=== PATIENT | female | born 1950 | race Caucasian/White ===

== ENCOUNTER 2018-06-14 11:17 | Inpatient (IN) ==
[2018-06-14] MEDS ORDERED: *HR* Adenosine 6 MG/2 ML VIAL IVP ONE ×2 (11:31→11:42)
--- NOTE | 2018-06-14 11:43 | Emergency Department Note ---
Disposition Clinical Impression: SVT (supraventricular tachycardia), Renal insufficiency Disposition: Admitted As Inpatient Condition: Fair Forms: ED Satisfaction Letter General Adult HPI - General Chief complaint: ED Arrhythmia/Palpitations Stated complaint: pain clinic pt Time Seen by Provider: 06/14/18 11:37 Source: patient, other Limitations: no limitations - History of Present Illness Pain Scale: 8 - Related Data Home Medications Medication Instructions Recorded Confirmed ALPRAZolam [Xanax 0.5 MG Tablet] 0.5 mg PO Q6H PRN 07/22/17 06/10/18 Albuterol Sulfate [Ventolin Hfa] 2 puff IH Q4H PRN 07/22/17 06/10/18 Aspirin [Lo-Dose Aspirin EC] 81 mg PO DAILY 07/22/17 06/10/18 Budesonide/Formoterol 160/4.5 2 puff IH BID 07/22/17 06/10/18 [Symbicort 160/4.5] Gabapentin [Neurontin] 800 mg PO TID 07/22/17 06/10/18 Insulin Degludec [Tresiba 40 unit SQ QPM 07/22/17 06/10/18 Flextouch U-100] Levothyroxine Sodium [Synthroid] 150 mcg PO DAILY 07/22/17 06/10/18 Simvastatin [Zocor] 40 mg PO HS 07/22/17 06/10/18 Furosemide [Lasix] 40 mg PO DAILY 02/04/18 06/10/18 Ipratropium/Albuterol Neb [Duoneb] 3 ml IH Q6HR 04/05/18 06/10/18 Loratadine [Allergy Relief] 10 mg PO DAILY 04/05/18 06/10/18 Potassium Chloride [Klor-Con] 20 meq PO DAILY 04/05/18 06/10/18 Tiotropium [Spiriva] 18 mcg IH DAILY 04/05/18 06/10/18 Tizanidine HCl [Zanaflex] 4 mg PO TID PRN 04/05/18 06/10/18 Venlafaxine XR (24 HR) [Effexor XR] 150 mg PO DAILY 04/05/18 06/10/18 Allergies Allergy/AdvReac Type Severity Reaction Status Date / Time prednisone AdvReac See Verified 04/05/18 16:14 Comments Past Medical History - Past Medical History Medical history: Reports: non-contributory, arthritis, diabetes Surgical history: Reports: appendectomy, cholecystectomy, hysterectomy, other Psychiatric history: Reports: anxiety, bipolar G[employer]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 [employer] 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 history - Social History Smoking Status: Current every day smoker Smokeless Tobacco Status: No Alcohol use: Reports: none Drug use: Reports: none Physical Exam - General Limitations: no limitations General appearance: alert Course Vital Signs Temperature 97.7 F 06/14/18 11:18 Pulse Rate 150 06/14/18 11:18 Respiratory Rate 21 06/14/18 11:18 Blood Pressure 95/60 06/14/18 11:18 O2 Sat by Pulse Oximetry 96 06/14/18 11:18 Temperature 97.7 F 06/14/18 11:18 Pulse Rate 84 06/14/18 12:17 Respiratory Rate 18 06/14/18 12:17 Blood Pressure 119/38 06/14/18 12:17 O2 Sat by Pulse Oximetry 98 06/14/18 12:17 Oxygen Delivery Oxygen Delivery Room Air Medical Decision Making - Lab Data Result diagrams: 06/14/18 12:04 Lab Results 06/14/18 06/14/18 Range/Units 11:27 12:04 Sodium 140 (136-145) mEq/L Potassium 4.3 (3.5-5.1) mEq/L Chloride 105 (98-107) mEq/L Carbon Dioxide 29 (23-29) mEq/L BUN 48 H (8-23) mg/dL Creatinine 1.89 H (0.60-1.20) mg/dL Est GFR ( Amer) 32 L (> 60) Est GFR (Non-Af Amer) 26 L (> 60) BUN/Creatinine Ratio 25 (6-26) Glucose 62 L (70-105) mg/dL POC Glucose 76 (70-99) mg/dL Calculated Osmolality 301 H (280-300) Calcium 9.1 (8.6-10.3) mg/dL Magnesium 2.2 (1.6-2.6) mg/dL Attestation Statement - Attestation Attestation: I examined this patient and my medical decision-making was reviewed with the Resident Physician. I agree with the documented findings, disposition and t reatment plan as described except to the extent set forth below. SVT, converted with adenosine. Borderline blood pressure in the 90s, but asymptomatic. She has never had chest pain, shortness of breath, syncope, presyncope. She has had similar episodes in the past that converted with what, per her description, sounds like adenosine administration. We will check electrolytes, keep an eye on her, and discuss with cardiology.
--- NOTE | 2018-06-14 11:48 | Emergency Department Note ---
Disposition Clinical Impression: SVT (supraventricular tachycardia), Renal insufficiency Disposition: Admitted As Inpatient Condition: Fair Referrals: Uriel De Leon DO [Primary Care Provider] - Forms: ED Satisfaction Letter Arrhythmia/Palpitations HPI - General Chief Complaint: ED Arrhythmia/Palpitations Stated Complaint: pain clinic pt Time Seen by Provider: 06/14/18 11:37 Source: patient, other Limitations: no limitations Nursing Notes Reviewed: Yes Vital Signs Reviewed: Yes - History of Present Illness HPI Narrative: Patient is a 68-year-old female with past medical history including type 2 diabetes mellitus, hypertension, hypothyroidism, bursitis of the left hip presen ting from the pain clinic with chief complaint of arrhythmia. Patient has not taken her medications this morning and has not eaten anything in preparation for surgery in the pain clinic for her left hip bursitis and arthritis. While there she was complaining of lightheadedness and blurry vision that is constant. She denies chest pain, shortness of breath, abdominal pain, nausea, vomiting, weakn ess, loss of consciousness. Blood sugars were obtained and were 30. She received 25 g of D50 with blood sugar rising to 70. EKG was obtained and showed supraventricular tachycardia and her heart rate was noted to be in the 160s. She is brought over from pain clinic as a direct bed for further management. At present patient denies any pain but is still complaining of lightheadedness and a feeling of passing out. She also has a mild headache. She reports a remote history of having an irregular rhythm that required electrical cardioversion. She denies being on any blood thinners or medications for an irregular rhythm. - Related Data Home Medications Medication Instructions Recorded Confirmed ALPRAZolam [Xanax 0.5 MG Tablet] 0.5 mg PO Q6H PRN 07/22/17 06/10/18 Albuterol Sulfate [Ventolin Hfa] 2 puff IH Q4H PRN 07/22/17 06/10/18 Aspirin [Lo-Dose Aspirin EC] 81 mg PO DAILY 07/22/17 06/10/18 Budesonide/Formoterol 160/4.5 2 puff IH BID 07/22/17 06/10/18 [Symbicort 160/4.5] Gabapentin [Neurontin] 800 mg PO TID 07/22/17 06/10/18 Insulin Degludec [Tresiba 40 unit SQ QPM 07/22/17 06/10/18 Flextouch U-100] Levothyroxine Sodium [Synthroid] 150 mcg PO DAILY 07/22/17 06/10/18 Simvastatin [Zocor] 40 mg PO HS 07/22/17 06/10/18 Furosemide [Lasix] 40 mg PO DAILY 02/04/18 06/10/18 Ipratropium/Albuterol Neb [Duoneb] 3 ml IH Q6HR 04/05/18 06/10/18 Loratadine [Allergy Relief] 10 mg PO DAILY 04/05/18 06/10/18 Potassium Chloride [Klor-Con] 20 meq PO DAILY 04/05/18 06/10/18 Tiotropium [Spiriva] 18 mcg IH DAILY 04/05/18 06/10/18 Tizanidine HCl [Zanaflex] 4 mg PO TID PRN 04/05/18 06/10/18 Venlafaxine XR (24 HR) [Effexor XR] 150 mg PO DAILY 04/05/18 06/10/18 Allergies Allergy/AdvReac Type Severity Reaction Status Date / Time prednisone AdvReac See Verified 04/05/18 16:14 Comments All systems ED: reviewed and negative except as stated. Review of Systems: As Per HPI Constitutional: Denies: fever, chills Eyes: Reports: vision change. Denies: eye pain ENT ED: Denies: ear pain, throat pain Cardiovascular: Denies: chest pain, palpitations Respiratory: Denies: cough, dyspnea Gastrointestinal: Denies: abdominal pain, nausea Genitourinary: Denies: dysuria, frequency Musculoskeletal: Denies: back pain, neck pain Integumentary: Denies: rash, abrasion Neurological: Reports: headache, other (Lightheadedness) Hematological/Lymphatic: Denies: easy bleeding, easy bruising Past Medical History - Past Medical History Attestation: Yes The following information was validated with the patient. 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 Absent: tenderness - Respiratory Respiratory exam: Present: normal lung sounds bilaterally. Absent: respiratory distress, wheezes - Cardiovascular Cardiovascular exam: Present: normal rhythm, tachycardia, other (Bilateral radial pulses are equal). Absent: systolic murmur, diastolic murmur - Abdominal Exam Abdominal exam: Present: soft, Non-Tender. Absent: guarding - Extremities Exam Extremities exam: Present: other (Bilateral lower extremity edema with chronic venous stasis changes) - Neurological Exam Neurological exam: Present: alert, oriented X3, CN II-XII intact - Psychiatric Psychiatric exam: Present: normal affect, normal mood - Skin Skin exam: Present: warm, dry Course Vital Signs Temperature 97.7 F 06/14/18 11:18 Pulse Rate 150 06/14/18 11:18 Respiratory Rate 21 06/14/18 11:18 Blood Pressure 95/60 06/14/18 11:18 O2 Sat by Pulse Oximetry 96 06/14/18 11:18 Temperature 97.7 F 06/14/18 11:18 Pulse Rate 84 06/14/18 12:17 Respiratory Rate 18 06/14/18 12:17 Blood Pressure 119/38 06/14/18 12:17 O2 Sat by Pulse Oximetry 98 06/14/18 12:17 Oxygen Delivery Oxygen Delivery Room Air Arrhythmia/Palpitations - [facility] Narrative Medical decision making narrative: Patient presenting from the pain clinic with concern for an arrhythmia. Patient was supposed to have a left hip surgery. She has not eaten anything and has not had any of her medications this morning. Her blood sugar was 30. She received 25 g D50 at the pain clinic with her blood sugar rising to 70. Patient was complaining of lightheadedness and blurry vision and an EKG was obtained. EKG showed supraventricular tachycardia with heart rate in the 150s. Repeat was unchanged. She is brought here to the ED as a direct bed. On the monitor the patient's heart rate was 152-154 bpm. It appeared she was then supraventricular tachycardia versus atrial flutter with 2:1. Blood pressures were borderline with systolic in the 90s. Patient did not complain of any chest pain or palpitations, shortness of breath, or loss of consciousness. She still feels lightheaded. Gave 12mg of adenosine with a flush afterwards. Patient was successfully converted with heart rate now 93. Repeat EKG shows sinus rhythm with heart rate 93, left anterior fascicular block. No evidence of acute ST elevation or depression. This time patient states she is feeling slightly better. She feels hungry. We will allow her to eat continue to observe her. We will check BMP and mag. Once labs return we will contact the electrophysiology to discuss admitting the patient versus discharge and follow- up in the office. 13:15 Patient's electrolytes reviewed. Is elevated at 48 and creatinine 1.89, elevated from the past. She has an acute kidney injury. No electrolyte abnormalities. Receiving IV fluids. Blood pressure and heart rate has remained stable. We will admit for this episode of supraventricular tachycardia that converted with adenosine as well as acute knee injury. Hospitalist accepts admission. - Medical Records Medical records reviewed: Yes I reviewed the patient's medical records. - Lab Data Result diagrams: 06/14/18 12:04 Lab Results 06/14/18 06/14/18 Range/Units 11:27 12:04 Sodium 140 (136-145) mEq/L Potassium 4.3 (3.5-5.1) mEq/L Chloride 105 (98-107) mEq/L Carbon Dioxide 29 (23-29) mEq/L BUN 48 H (8-23) mg/dL Creatinine 1.89 H (0.60-1.20) mg/dL Est GFR ( Amer) 32 L (> 60) Est GFR (Non-Af Amer) 26 L (> 60) BUN/Creatinine Ratio 25 (6-26) Glucose 62 L (70-105) mg/dL POC Glucose 76 (70-99) mg/dL Calculated Osmolality 301 H (280-300) Calcium 9.1 (8.6-10.3) mg/dL Magnesium 2.2 (1.6-2.6) mg/dL - EKG Data EKG attestation: Yes I reviewed and interpreted this EKG. EKG results narrative: Awake EKG from today at 1137 after the cardioversion with adenosine shows sinus rhythm with heart rate 93, left anterior fascicular block. No acute ST elevation or depression noted to suggest an acute ischemia.
[2018-06-14] MEDS ORDERED: 0.9 % Sodium Chloride 500 ML IVC ONE (11:53)
[2018-06-14 12:49] LABS: Calcium 9.1 mg/dL (8.6-10.3); Magnesium 2.2 mg/dL (1.6-2.6); Potassium 4.3 mEq/L (3.5-5.1)
[2018-06-14] MEDS ORDERED: *HR* OxyCODONE/APAP 5/325 TABLET PO ONE (13:34)
--- NOTE | 2018-06-14 16:13 | Internal Med History&Physical ---
Date of Encounter: 06/14/18 Time of Encounter: 11:00 Internal Medicine - H&P: HPI Chief complaint: Tachycardia Admitted From: Direct Admit Plans for Post Hospital Care: Home History of present illness: Patient is a 68-year-old female with past medical history significant for chronic pain, diabetes, hypothyroid, COPD, obesity and hyperlipidemia who presents from the pain clinic on 06/14/18 due to hypoglycemia and tachycardia. Apparently patient was at pain clinic this morning for radiofrequency ablation of left hip femoral and obturator articular branches but was found to be hypoglycemic and tachycardic with a heart rate in the 150s. Patient was sent to the ER for further evaluation. During this time, patient denied any chest pain, palpitations shortness of breath or dizziness. In the ER, patient was found to have supraventricular tachycardia and was given adenosine 12 mg which resolved patients SVT. Patient was also found to be hypotensive and was given a bolus of IV fluids. Patient will be admitted to medical surgical floor for observation and monitoring. Past Med Surg Social Fam HX - Past Medical History Medical history: non-contributory, arthritis, diabetes Additional medical history: CHRONIC PAIN, OBESITY,POLYARTHRITIS Psychiatric history: anxiety, bipolar - Past Surgical History Surgical History: appendectomy, cholecystectomy, hysterectomy, other Additional surgical history: ORIF RT ARM - Social History Smoking Status: Current every day smoker Packs per day: 2 Smokeless Tobacco Status: No Alcohol use: rarely Drug use: marijuana - Family History Father Age at : 62 Cause of : lung cancer Hx Family Respiratory Disorders: Yes (lung cancer, smoker) Hx Family Cancer: Yes (lung cancer) Internal Medicine - H&P: Meds ALPRAZolam [Xanax 0.5 MG Tablet] 0.5 mg PO Q6H PRN 07/22/17 [History] Albuterol Sulfate [Ventolin Hfa] 2 puff IH Q4H PRN 07/22/17 [History] Aspirin [Lo-Dose Aspirin EC] 81 mg PO DAILY 07/22/17 [History] Budesonide/Formoterol 160/4.5 [Symbicort 160/4.5] 2 puff IH BID 07/22/17 [History] Gabapentin [Neurontin] 800 mg PO TID 07/22/17 [History] Insulin Degludec [Tresiba Flextouch U-100] 40 unit SQ QPM 07/22/17 [History] Levothyroxine Sodium [Synthroid] 150 mcg PO DAILY 07/22/17 [History] Simvastatin [Zocor] 40 mg PO HS 07/22/17 [History] Furosemide [Lasix] 40 mg PO DAILY 02/04/18 [History] Ipratropium/Albuterol Neb [Duoneb] 3 ml IH Q6HR 04/05/18 [History] Loratadine [Allergy Relief] 10 mg PO DAILY 04/05/18 [History] Potassium Chloride [Klor-Con] 20 meq PO DAILY 04/05/18 [History] Tiotropium [Spiriva] 18 mcg IH DAILY 04/05/18 [History] Tizanidine HCl [Zanaflex] 4 mg PO TID PRN 04/05/18 [History] Venlafaxine XR (24 HR) [Effexor XR] 150 mg PO DAILY 04/05/18 [History] Allergy/AdvReac Type Severity Reaction Status Date / Time prednisone AdvReac See Verified 04/05/18 16:14 Comments All Systems PM: A 10-system review of systems was performed and is negative for pertinent findings except as documented above in the HPI. - Constitutional Vitals: Temp Pulse Resp BP Pulse Ox 97.9 F 73 20 95/64 95 06/14/18 15:48 06/14/18 15:48 06/14/18 15:48 06/14/18 15:48 06/14/18 15:48 General appearance: Present: A&O X 3, no acute distress, obese Exam: As above - Head Head exam: Present: normocephalic - Eye Eye exam: Present: normal appearance - ENT ENT exam: Present: mucous membranes moist - Respiratory Respiratory exam: Present: CTAB. Absent: accessory muscle use, rales, rhonchi, wheezes - Cardiovascular Cardiovascular exam: Present: RRR, +S1, +S2. Absent: diastolic murmur, gallop, rubs, systolic murmur - GI/Abdominal GI/Abdominal exam: Present: normal bowel sounds, soft, no peritoneal signs. Absent: distended, tenderness - Extremities Exam Extremities exam: Absent: pedal edema - Neurological Exam Neurological exam: Present: alert, oriented X3. Absent: altered - Psychiatric Psychiatric exam: Present: normal mood - Skin Skin exam: Present: normal color Internal Med - H&P Results - Labs CBC & Chem 7: 06/14/18 12:04 Labs: BMP 06/14/18 12:04 Sodium 140 Potassium 4.3 Chloride 105 Carbon Dioxide 29 BUN 48 H Creatinine 1.89 H Glucose 62 L Calcium 9.1 - Assessment and plan (1) SVT (supraventricular tachycardia) Current Visit: Yes Status: Acute Assessment and plan: Patient with documented SVT on EKG viewed by myself with resolved after 12 mg of adenosine. Will check TSH and order echocardiogram; monitor on telemetry overnight. (2) Hypotension Current Visit: Yes Status: Acute Assessment and plan: Patient hypotensive in the ER and received 500 mL bolus Patient remains hypotensive on admission therefore initiate continuous IV fluids Qualifiers: Hypotension type: idiopathic hypotension Qualified Code(s): I95.0 - Idiopathic hypotension (3) Hypoglycemia associated with diabetes Current Visit: Yes Status: Acute Assessment and plan: Patient with reported blood glucose of 40 at the pain clinic office this morning. Patient reports however of having continue insulin while fasting Will monitor blood glucose overnight. (4) CKD (chronic kidney disease) stage 3, GFR 30-59 ml/min Current Visit: Yes Status: Acute Assessment and plan: Patient with stable CKD 3; she will for creatinine of 1.89 this morning and baseline appears to be 1.4 Will continue to monitor (5) Hypothyroid Current Visit: Yes Status: Acute Assessment and plan: Patient's last TSH was 0.074 and 2016 Will recheck TSH levels and continue home dose of levothyroxine for now. Qualifiers: Hypothyroidism type: unspecified Qualified Code(s): E03.9 - Hypothyroidism, unspecified (6) HLD (hyperlipidemia) Current Visit: Yes Status: Acute Assessment and plan: Continue home dose of statin Qualifiers: Hyperlipidemia type: unspecified Qualified Code(s): E78.5 - Hyperlipidemia, unspecified (7) COPD (chronic obstructive pulmonary disease) Current Visit: Yes Status: Acute Assessment and plan: Continue patient's home dose of Symbicort Qualifiers: Emphysema type: unspecified Qualified Code(s): J43.9 - Emphysema, unspecified (8) Obesity Current Visit: Yes Status: Acute Assessment and plan: Lifestyle modifications Qualifiers: Body mass index: unspecified BMI Qualified Code(s): E66.9 - Obesity, unspecified (9) Smoker Current Visit: Yes Status: Acute Assessment and plan: Nicotine replacement offered (10) DVT prophylaxis Current Visit: Yes Status: Acute Assessment and plan: Heparin subcutaneous - Time Spent With Patient Total time spent is greater than 50% in coordination of care (as documented) at patient's floor/unit and/or counseling patient:
[2018-06-14] MEDS ORDERED: Naloxone 0.4 MG/ML INJ IVP PRN (16:24)
[2018-06-14 17:14] LABS: Thyroid Stimulating Hormone 1.583 mcIU/mL (0.340-5.600)
[2018-06-14] MEDS: 0.9 % Sodium Chloride 1,000 ML IVC SCH (18:01)
[2018-06-14] MEDS: *HR* Heparin 5,000 UNIT/ML VIAL SQ SCH (18:01)
[2018-06-14] MEDS ORDERED: Ipratropium/Albuterol Neb 3 ML IH PRN (19:29)
[2018-06-14] MEDS ORDERED: ALPRAZolam 1 MG TABLET PO PRN (19:29)
[2018-06-14] MEDS: Gabapentin 400 MG CAPSULE PO SCH (20:44)
[2018-06-14] MEDS: Budesonide/Formoterol 160/4.5 1 PUFF INH IH SCH (21:52)
[2018-06-15 04:32] LABS: Basophils % 0.7 %; Eosinophils # 0.2 K/mcL (0.0-0.6); Eosinophils % 3.8 %; Hematocrit 32.8 % (35.3-44.9); Hemoglobin 10.6 g/dL (11.5-15.4); Immature Granulocytes % 0.2 % (0-4); Lymphocytes # 2.6 K/mcL (0.6-4.6); Lymphocytes % 42.6 %; Mean Corpuscular HGB Conc 32.3 g/dL (31.6-35.5); Mean Corpuscular Hemoglobin 32.2 pg (28.0-33.3); Mean Corpuscular Volume 99.7 fL (83.0-100.0); Mean Platelet Volume 10.1 fL (9.4-12.4); Monocytes # 0.4 K/mcL (0.0-1.3); Monocytes % 6.9 %; Neutrophils # 2.8 K/mcL (1.6-8.9); Platelet Count 162 K/mcL (140-400); Red Blood Count 3.29 M/mcL (3.82-4.97); Red Cell Distribution Width 13.7 % (11.5-14.5); Segmented Neutrophils % 45.8 %
[2018-06-15 04:50] LABS: Calcium 8.6 mg/dL (8.6-10.3); Potassium 4.5 mEq/L (3.5-5.1)
[2018-06-15] MEDS: *HR* Heparin 5,000 UNIT/ML VIAL SQ SCH (06:20)
[2018-06-15] MEDS ORDERED: Perflutren Lipid Microsphere 1.3 ML in 0.9 % Sodium Chloride 8.7 ML IVP ONE (08:20)
[2018-06-15] MEDS ORDERED: Famotidine 20 MG TABLET PO SCH (09:00)
[2018-06-15] MEDS ORDERED: *HR* Pioglitazone 30 MG TABLET PO SCH (09:00)
[2018-06-15] MEDS ORDERED: Loratadine 10 MG TABLET PO SCH (09:00)
[2018-06-15] MEDS ORDERED: Aspirin Enteric Coated 81 MG Tablet PO SCH (09:00)
[2018-06-15] MEDS ORDERED: Furosemide 40 MG TABLET PO SCH (09:00)
[2018-06-15] MEDS ORDERED: Nicotine 21 MG PATCH.TD24 TD SCH (09:00)
[2018-06-15] MEDS ORDERED: ARIPiprazole 10 MG TABLET PO SCH (09:00)
[2018-06-15] MEDS: Gabapentin 400 MG CAPSULE PO SCH (10:03)
[2018-06-15] MEDS: 0.9 % Sodium Chloride 1,000 ML IVC SCH (10:05)
[2018-06-15] MEDS: Budesonide/Formoterol 160/4.5 1 PUFF INH IH SCH (10:50)
[2018-06-15 11:05] VITALS: BP 134/81
[2018-06-15] MEDS ORDERED: INSULIN DEGLUDEC 60 UNIT SQ SCH (14:00)
[2018-06-15] MEDS ORDERED: Insulin DETEMIR 100 UNIT/ML X5UNITS SQ SCH (14:00)
--- NOTE | 2018-06-15 14:20 | Discharge Summary ---
- NOTES TO OUTPATIENT PROVIDER Notes to Outpatient Provider: Follow-up with primary care provider Date of Encounter: 06/15/18 Time of Encounter: 11:00 - Discharge Diagnosis (1) SVT (supraventricular tachycardia) Priority: Primary Status: Acute (2) Hypotension Priority: Secondary Status: Acute Qualifiers: Hypotension type: idiopathic hypotension Qualified Code(s): I95.0 - Idiopathic hypotension (3) Hypoglycemia associated with diabetes Priority: Secondary Status: Acute (4) CKD (chronic kidney disease) stage 3, GFR 30-59 ml/min Priority: Secondary Status: Acute (5) Hypothyroid Priority: Secondary Status: Acute Qualifiers: Hypothyroidism type: unspecified Qualified Code(s): E03.9 - Hypothyroidism, unspecified (6) HLD (hyperlipidemia) Priority: Secondary Status: Acute Qualifiers: Hyperlipidemia type: unspecified Qualified Code(s): E78.5 - Hyperlipidemia, unspecified (7) COPD (chronic obstructive pulmonary disease) Priority: Secondary Status: Acute Qualifiers: Emphysema type: unspecified Qualified Code(s): J43.9 - Emphysema, unspecified (8) Obesity Priority: Secondary Status: Acute Qualifiers: Body mass index: unspecified BMI Qualified Code(s): E66.9 - Obesity, unspecified (9) Smoker Priority: Secondary Status: Acute Hospital course: Patient is a 68-year-old female with past medical history significant for chron ic pain, diabetes, hypothyroid, COPD, obesity and hyperlipidemia who presents from the pain clinic on 06/14/18 due to hypoglycemia and tachycardia. Apparently patient was at pain clinic this morning for radiofrequency ablation of left hip femoral and obturator articular branches but was found to be hypoglycemic and tachycardic with a heart rate in the 150s. Patient was sent to the ER for further evaluation. During this time, patient denied any chest pain, palpitations shortness of breath or dizziness. In the ER, patient was found to have supraventricular tachycardia and was given adenosine 12 mg which resolved patients SVT. Patient was also found to be hypotensive and was given a bolus of IV fluids. Patient will be admitted to medical surgical floor for observation and monitoring. During patients hospital stay she was monitor on telemetry with no further episodes of SVT. Patient's blood pressure also within normal limits and her hypoglycemia resolved. Echocardiogram was done which showed LVEF of 70-75% with normal LV chamber size and function in addition to normal right ventricular structure and function; no significant valvular dysfunction or any evidence of pulmonary hypertension. Patient will be discharged to follow up with primary care as an outpatient. - Time Spent with Patient Total time spent providing and/or coordinating discharge services: - Discharge Medications Home Medications: Albuterol Sulfate [Ventolin Hfa] 2 puff IH Q4H PRN 07/22/17 [History] Aspirin [Lo-Dose Aspirin EC] 81 mg PO DAILY 07/22/17 [History] Budesonide/Formoterol 160/4.5 [Symbicort 160/4.5] 2 puff IH BID 07/22/17 [History] Gabapentin [Neurontin] 800 mg PO TID 07/22/17 [History] Insulin Degludec [Tresiba Flextouch U-100] 60 unit SQ 1400 07/22/17 [History] Levothyroxine Sodium [Synthroid] 137 mcg PO DAILY 07/22/17 [History] Simvastatin [Zocor] 40 mg PO HS 07/22/17 [History] Ipratropium/Albuterol Neb [Duoneb] 3 ml IH Q6HR PRN 04/05/18 [History] Loratadine [Allergy Relief] 10 mg PO DAILY 04/05/18 [History] Potassium Chloride [Klor-Con] 20 meq PO DAILY 04/05/18 [History] ALPRAZolam [Xanax 1 MG Tablet] 1 mg PO TID PRN 06/14/18 [History] ARIPiprazole [Abilify] 10 mg PO DAILY 06/14/18 [History] Famotidine [Pepcid] 40 mg PO DAILY 06/14/18 [History] Furosemide [Lasix] 80 mg PO DAILY 06/14/18 [History] Lisinopril [Zestril] 10 mg PO DAILY 06/14/18 [History] Pioglitazone HCl 30 mg PO DAILY 06/14/18 [History] Venlafaxine HCl [Venlafaxine HCl ER] 150 mg PO BID 06/14/18 [History] Allergies/Adverse Reactions: Allergy/AdvReac Type Severity Reaction Status Date / Time prednisone AdvReac See Verified 04/05/18 16:14 Comments Date of admission: 06/14/18 17:06 Primary care physician: Uriel De Leon DO Consults: 06/14/18 15:39 Consult to Corporate Physical Security Supervisor [CONS] Routine Reason for SW Consult: passport, o2 julee 2l, best choice HH rn, aides, Transportation - Constitutional Vitals: Temp Pulse Resp BP Pulse Ox 97.8 F 73 20 134/81 94 06/15/18 10:57 06/15/18 10:57 06/15/18 10:57 06/15/18 10:57 06/15/18 10:57 General appearance: Present: A&O X 3, no acute distress, obese Exam: Gen.: Nonacute distress, alert and oriented 3 Skin: Normal color - Patient Status Disposition: Home, Self-Care Condition: Fair - Discharge Instructions Instructions: Supraventricular Tachycardia (GEN), Cigarette Smoking and Your Health (GEN), Diabetic Hypoglycemia (GEN) Follow Up With: Liss Gonzalez CNP [Advanced Practice Nurse] - 06/27/18 1:15 pm
--- NOTE | 2018-06-16 18:33 | Electrocardiograph Report ---
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
--- NOTE | 2018-06-16 18:34 | Electrocardiograph Report ---
[facility] [facility] Test Date: 2018-06-14 Pat Name: Maritza Jaramillo Department: EXAM21 Room: 2A33 Gender: F [place] Operator: : [id number] Requested By: David Subramanian Order Number: [id number] Reading MD: Margot Hood Measurements Intervals [place] Rate: 93 P: 74 WV: 168 QRS: -47 QRSD: 101 T: 58 QT: 348 QTc: 433 Interpretive Statements Sinus rhythm Left anterior fascicular block Low voltage, precordial leads Consider anterior infarct Left axis deviation POOR R WAVE PROGRESSION Electronically Signed On 06-16-2018 18:33:31 EST by Margot Hood
== END 2018-06-15 15:38 | disposition home or self-care (01) | DRG 201 ==
LOC: EMEROOARM 11:17 → 2ANU 11:17 → SUATTDRO 17:06
PROVIDERS: ADMIT Student in an Organized Health Care Education/Training Program; ATTEND Hospitalist

== ENCOUNTER 2018-12-16 17:23 | Inpatient (IN) ==
[2018-12-16] MEDS ORDERED: *HR* HYDROmorphone (PF) 1 MG/ML SYRINGE IVP ONE ×2 (17:52→20:19)
[2018-12-16] MEDS ORDERED: 0.9 % Sodium Chloride 1,000 ML IVC ONE (17:52)
--- NOTE | 2018-12-16 17:55 | Emergency Department Note ---
Disposition Clinical Impression: Compression fracture, Lumbar compression fracture T12 compression fracture Qualifiers: Encounter type: initial encounter Qualified Code(s): S22.080A - Wedge compression fracture of T11-T12 vertebra, initial encounter for closed fracture Rib fracture Qualifiers: Encounter type: subsequent encounter Rib fracture type: multiple ribs Fracture type: closed Laterality: unspecified laterality Fracture healing: with routine healing Qualified Code(s): S22.49XD - Multiple fractures of ribs, unspecified side, subsequent encounter for fracture with routine healing Disposition: Admitted As Inpatient Condition: Good Referrals: Alex Steward MD [Non-Partnered Physician] - Forms: ED Satisfaction Letter Time of Disposition: 20:33 General Adult HPI - General Chief complaint: ED Fall Stated complaint: abdominal pain Time Seen by Provider: 12/16/18 17:24 Source: patient, EMS Limitations: no limitations Nursing Notes Reviewed: Yes Vital Signs Reviewed: Yes - History of Present Illness HPI Narrative: Female patient presenting to emergency department complaining of left hip pain abdominal pain and left shoulder pain after a fall that she sustained 3 days ago. She was attempting to get out of the wheelchair and fell forward. She is unaware if she struck her head but she does not believe that she passed out. Does have a history of aspirin use as well as dementia COPD thyroid issues and kidney problems. She is currently residing in a nursing facility for physical therapy. Patient is also diabetic. Pain Scale: 10 - Related Data Home Medications Medication Instructions Recorded Confirmed Albuterol Sulfate [Ventolin Hfa] 2 puff IH Q4H PRN 07/22/17 12/09/18 Levothyroxine Sodium [Synthroid] 137 mcg PO DAILY 07/22/17 12/09/18 Simvastatin [Zocor] 40 mg PO HS 07/22/17 12/09/18 Ipratropium/Albuterol Neb [Duoneb] 3 ml IH Q6HR PRN 04/05/18 12/09/18 Famotidine [Pepcid] 40 mg PO DAILY 06/14/18 12/09/18 Pioglitazone HCl 30 mg PO DAILY 06/14/18 12/09/18 Venlafaxine HCl [Venlafaxine HCl 150 mg PO DAILY 06/14/18 12/09/18 ER] Benztropine Mesylate 0.5 mg PO DAILY 09/24/18 12/09/18 Lidocaine [Lidoderm] 1 each TP DAILY 11/23/18 12/09/18 Melatonin 5 mg PO HS 11/23/18 12/09/18 Multivitamin with Minerals 1 each PO DAILY 11/23/18 12/09/18 [One-A-Day Maximum Formula] Insulin LISPRO [HumaLOG] 0 units SQ TIDWM 12/07/18 12/09/18 Acetaminophen [Tylenol] 1,000 mg PO TID PRN 12/09/18 12/09/18 Aripiprazole [Abilify] 15 mg PO DAILY 12/09/18 12/09/18 Glimepiride [Amaryl] 1 mg PO DAILY 12/09/18 12/09/18 MOM Conc [MILK OF MAGNESIA conc] 30 ml GTUBE DAILY 12/09/18 12/09/18 Methyl Salicylate/Menth/Camph 1 appl TP AD 12/09/18 12/09/18 [Bengay Ultra Strength Cream] Nicotine Patch [Nicoderm] 14 mg TP DAILY 12/09/18 12/09/18 Quetiapine Fumarate [Seroquel] 25 mg PO DAILY 12/09/18 12/09/18 Previous Rx's Medication Instructions Recorded ARIPiprazole [Abilify] 15 mg PO DAILY tablet 12/10/18 Gabapentin [Neurontin] 400 mg PO TID #12 capsule 12/10/18 Insulin Degludec [Tresiba 20 unit SQ DAILY 30 Days 12/10/18 Flextouch U-100] [email or web address] Allergies Allergy/AdvReac Type Severity Reaction Status Date / Time prednisone AdvReac See Verified 12/09/18 11:24 Comments All systems ED: reviewed and negative except as stated. Review of Systems: As Per HPI Constitutional: Denies: fever, chills Cardiovascular: Denies: chest pain, palpitations, syncope Respiratory: Denies: cough, dyspnea Gastrointestinal: Reports: abdominal pain. Denies: nausea, vomiting, diarrhea Genitourinary: Denies: urgency, dysuria, frequency Musculoskeletal: Reports: back pain, other (Left hip and left shoulder pain.). Denies: neck pain Integumentary: Denies: rash Neurological: Reports: weakness. Denies: headache Past Medical History - Past Medical History Attestation: Yes The following information was validated with the patient. Source: patient Medical history: Reports: arthritis, COPD, dementia, diabetes, GERD, hyperlipidemia, hypertension, renal disease, thyroid disease Surgical history: Reports: appendectomy, cholecystectomy, hysterectomy, other Psychiatric history: Reports: anxiety, bipolar, depression, PTSD TREE GIRDLER history: Reports: no TREE GIRDLER history - Social History Smoking Status: Former smoker Smokeless Tobacco Status: No Alcohol use: Reports: none Drug use: Reports: marijuana Physical Exam - General Limitations: no limitations General appearance: alert, in no apparent distress - Head Head exam: atraumatic, normocephalic, normal inspection - Eye Eye exam: Present: normal appearance, PERRL, EOMI - ENT ENT exam: normal exam, normal oropharynx, mucous membranes moist - Neck Neck exam: Present: normal inspection, full ROM, trachea midline - Chest Chest inspection: Present: normal inspection, symmetric chest wall rise - Respiratory Respiratory exam: Present: normal lung sounds bilaterally. Absent: respiratory distress, accessory muscle use - Cardiovascular Cardiovascular exam: Present: regular rate, normal rhythm, normal heart sounds - Abdominal Exam Abdominal exam: Present: soft, tenderness (And lower quadrants.), other (Large a jerzy of ecchymosis to the left lower anterior abdomen. Small area of ecchymosis to the right anterior abdomen). Absent: distention, guarding, rebound, rigidity, organomegaly - Extremities Exam Extremities exam: Present: normal inspection, full ROM, normal capillary refill, other (No gross deformity. No ecchymosis.). Absent: tenderness, pedal edema, calf tenderness - Back Exam Back exam: Present: normal inspection, other (Midline pain to palpation of her thorax and lumbar spine. No step-offs or deformities of cervical thorax or lumbar spine.) - Neurological Exam Neurological exam: Present: alert, oriented X3 - Psychiatric Psychiatric exam: Present: anxious - Skin Skin exam: Present: warm, dry, intact, normal color Course Course Narrative: On exam patient is lying back in bed with her eyes shut. She is moaning. Complaining of pain. Holding her left side. Patient does have some ecchymosis or left lower quadrant area. Also small area of ecchymosis to the anterior right lower abdomen that appears to be from her insulin shots. Patient still vinson s some ecchymosis to her left back as well. Patient states that she fell out of her wheelchair and struck her left side. Complaining of left shoulder pain. Was evaluated by orthopedics today with a negative x-ray of her left shoulder. Unaware if she should have her head whenever she fell but denies loss consciousness. Patient does have diffuse pain to palpation of her thoracic and lumbar spine. Also diffuse abdominal pain. No gross deformity of her extremities. She is mentating appropriately. Strong pulses in all 4 extremities. Patient denies any cervical pain at this time. We will get a head CT a cervical thoracic lumbar spine CT chest CT as well as an abdominal CT. She does have history of CAD so we will withhold IV contrast at this time. We will also get films of her left hip. - Reevaluation(s) Reevaluation #1: CT of patient's head without any acute abnormalities. Patient does have L1 and L2 compression fractures. Also a acute on chronic compression fracture of T12 with some moderate retropulsion. I did receive a call from radiology that there was also some facet widening and was considered an unstable fracture with concern for disruption of the PLC. Patient does not have any sensory disorders noted. She has movement of her feet bilaterally. Patient also with pedal pulses. However somewhat decreased on the right. Patient is mentating appropriately. We will admit patient to the hospital for further evaluation. Pauline de la cruz did place the MRI order. The patient should be on bedrest because she does have an unstable T12 fracture. Reevaluation #2: Nursing staff reevaluated sensation in the patient. She does have sensation throughout her lower extremities however she is reporting decreased on the right compared to the left. Time: 20:31 - Consultations Consultation #1: I spoke with Dr. Skaggs. We discussed the unstable T12 fracture. He is requesting a MRI of the patient's spine. We will place this at this time. He states he will see the patient in the morning. Time: 20:08 Consultation #2: Dr. Dunn accepted patient in stable condition. Time: 20:30 Vital Signs Temperature 98.4 F 12/16/18 17:28 Pulse Rate 89 12/16/18 17:28 Respiratory Rate 18 12/16/18 17:28 Blood Pressure 146/92 12/16/18 17:28 O2 Sat by Pulse Oximetry 98 12/16/18 17:28 Temperature 98.4 F 12/16/18 17:28 Pulse Rate 89 12/16/18 18:27 Respiratory Rate 16 12/16/18 18:27 Blood Pressure 129/64 12/16/18 18:27 O2 Sat by Pulse Oximetry 99 12/16/18 18:27 Oxygen Delivery Oxygen Delivery Room Air Medical Decision Making - Medical Records Medical records reviewed: Yes I reviewed the patient's medical records. - Lab Data Lab results reviewed: Yes I reviewed the patient's lab results. Result diagrams: 12/16/18 18:21 12/16/18 18:21 Lab Results 12/16/18 12/16/18 Range/Units 18:21 18:21 WBC 10.0 (4.3-11.1) K/mcL RBC 4.23 (3.82-4.97) M/mcL Hgb 12.9 (11.5-15.4) g/dL Hct 40.4 (35.3-44.9) % MCV 95.5 (83.0-100.0) fL MCH 30.5 (28.0-33.3) pg MCHC 31.9 (31.6-35.5) g/dL RDW 14.7 H (11.5-14.5) % Plt Count 274 (140-400) K/mcL MPV 9.9 (9.4-12.4) fL Immature Gran % 0.4 (0-4) % Seg Neutrophils % 78.2 % Lymphocytes % 14.9 % Monocytes % 5.8 % Eosinophils % 0.2 % Basophils % 0.5 % Neutrophils # 7.8 (1.6-8.9) K/mcL Lymphocytes # 1.5 (0.6-4.6) K/mcL Monocytes # 0.6 (0.0-1.3) K/mcL Eosinophils # 0.0 (0.0-0.6) K/mcL Basophils # 0.1 (0.0-0.2) K/mcL Sodium 140 (136-145) mEq/L Potassium 4.0 (3.5-5.1) mEq/L Chloride 101 (98-107) mEq/L Carbon Dioxide 28 (23-29) mEq/L BUN 28 H (8-23) mg/dL Creatinine 1.18 (0.60-1.20) mg/dL Est GFR ( Amer) 55 L (> 60) Est GFR (Non-Af Amer) 45 L (> 60) BUN/Creatinine Ratio 24 (6-26) Glucose 196 H (70-105) mg/dL Calculated Osmolality 301 H (280-300) Calcium 9.3 (8.6-10.3) mg/dL Total Bilirubin 0.6 (0.3-1.0) mg/dL AST 16 (13-39) Units/L ALT 11 (7-52) Units/L Alkaline Phosphatase 366 H (34-104) Units/L Serum Total Protein 7.0 (6.4-8.9) g/dL Albumin 3.7 (3.5-5.7) g/dL Globulin 3.3 (2.4-3.5) g/dL Albumin/Globulin Ratio 1.1 (1.1-2.2) - Radiology Data Radiology results reviewed: Yes I reviewed the patient's radiology results. Cervical Spine CT 12/16/18 17:52 IMPRESSION: Cervical spine CT: No acute fracture malalignment. Thoracic spine CT: Acute compression fracture at T12, with moderate dorsal retropulsion. There appears to be disruption of the posterior ligamentous complex, with widening of the facet joints at T12-L1. Subacute medial right rib fractures. Lumbar spine CT: Acute appearing compression fractures at L1 and L2, with mild dorsal retropulsion at L1 and no significant dorsal retropulsion at L. No involvement of the posterior elements is found. Possible mural thickening of the sigmoid colon and rectum. Correlate with any clinical evidence of proctitis/colitis. Findings were discussed with Soha Madison DO at 7:55 pm on 12/16/2018. D/ / Jeff Canela MD / Jeff Canela MD Interpreting Provider: Jeff Canela MD Head CT 12/16/18 17:52 IMPRESSION: No acute intracranial abnormality. D/ / Stef Painting MD / Stef Painting MD Interpreting Provider: Stef Painting MD Lumbar Spine CT 12/16/18 17:52 IMPRESSION: Cervical spine CT: No acute fracture malalignment. Thoracic spine CT: Acute compression fracture at T12, with moderate dorsal retropulsion. There appears to be disruption of the posterior ligamentous complex, with widening of the facet joints at T12-L1. Subacute medial right rib fractures. Lumbar spine CT: Acute appearing compression fractures at L1 and L2, with mild dorsal retropulsion at L1 and no significant dorsal retropulsion at L. No involvement of the posterior elements is found. Possible mural thickening of the sigmoid colon and rectum. Correlate with any clinical evidence of proctitis/colitis. Findings were discussed with Soha Madison DO at 7:55 pm on 12/16/2018. D/ / Jeff Canela MD / Jeff Canela MD Interpreting Provider: Jeff Canela MD Thoracic Spine CT 12/16/18 17:52 IMPRESSION: Cervical spine CT: No acute fracture malalignment. Thoracic spine CT: Acute compression fracture at T12, with moderate dorsal retropulsion. There appears to be disruption of the posterior ligamentous complex, with widening of the facet joints at T12-L1. Subacute medial right rib fractures. Lumbar spine CT: Acute appearing compression fractures at L1 and L2, with mild dorsal retropulsion at L1 and no significant dorsal retropulsion at L. No involvement of the posterior elements is found. Possible mural thickening of the sigmoid colon and rectum. Correlate with any clinical evidence of proctitis/colitis. Findings were discussed with Soha Madison DO at 7:55 pm on 12/16/2018. D/ / Jeff Canela MD / Jeff Canela MD Interpreting Provider: Jeff Canela MD Abdomen/Pelvis CT 12/16/18 17:53 IMPRESSION: Rectosigmoid fecal impaction. There is mild perirectal and pre sacral fat stranding. Stercoral colitis should be considered. There is partial lumbarization of S1. Using this numbering system and compared with 10/21/2018, there is a mild new compression fracture inferior endplate of T11, new marked compression with vertebral plana at T8 with smooth retropulsion of the superior endplate, moderate remote compression fracture of L1 and a new moderate compression fracture of L2. Mild bibasilar dependent parenchymal lung disease, likely atelectasis. D/ / Stef Painting MD / Stef Painting MD Interpreting Provider: Stef Painting MD Chest CT 12/16/18 17:53 IMPRESSION: 1. Cardiomegaly and trace bilateral pleural effusions may represent edema association with CHF. Bibasilar airspace opacities suspected to represent edema or atelectasis. 2. Granulomatous changes are also observed in the chest. 3. T12 compression fracture that is severe. Age is indeterminate, but this is new from a prior CT 10/21/2018. D/ / Amaury Olivas MD / Amaury Olivas MD Interpreting Provider: Amaury Olivas MD Hip X-Ray 12/16/18 17:54 IMPRESSION: 1. No definite acute findings in the left hip. 2. Bony demineralization partially limits evaluation fractures. Consider further evaluation with MRI or CT if there are clinical findings of fracture. 3. Mild degenerative changes of the sacroiliac joints and hips. D/ / David Wyman MD / David Wyman MD Interpreting Provider: David Wyman MD
[2018-12-16 18:48] LABS: Basophils # 0.1 K/mcL (0.0-0.2); Basophils % 0.5 %; Eosinophils % 0.2 %; Hematocrit 40.4 % (35.3-44.9); Immature Granulocytes % 0.4 % (0-4); Lymphocytes # 1.5 K/mcL (0.6-4.6); Lymphocytes % 14.9 %; Mean Corpuscular HGB Conc 31.9 g/dL (31.6-35.5); Mean Corpuscular Hemoglobin 30.5 pg (28.0-33.3); Mean Corpuscular Volume 95.5 fL (83.0-100.0); Mean Platelet Volume 9.9 fL (9.4-12.4); Monocytes # 0.6 K/mcL (0.0-1.3); Monocytes % 5.8 %; Neutrophils # 7.8 K/mcL (1.6-8.9); Platelet Count 274 K/mcL (140-400); Red Blood Count 4.23 M/mcL (3.82-4.97); Red Cell Distribution Width 14.7 % (11.5-14.5); Segmented Neutrophils % 78.2 %
[2018-12-16 18:49] LABS: Hemoglobin 12.9 g/dL (11.5-15.4)
[2018-12-16 19:07] LABS: Albumin 3.7 g/dL (3.5-5.7); Albumin/Globulin Ratio 1.1 (1.1-2.2); Bilirubin,Total 0.6 mg/dL (0.3-1.0); Calcium 9.3 mg/dL (8.6-10.3); Globulin 3.3 g/dL (2.4-3.5)
--- NOTE | 2018-12-16 20:30 | Emergency Department Note ---
Disposition Clinical Impression: Fracture lumbar vertebra-closed Qualifiers: Encounter type: initial encounter Lumbar vertebra fracture level: unspecified lumbar vertebra Fracture morphology: unspecified fracture morphology Qualified Code(s): S32.009A - Unspecified fracture of unspecified lumbar vertebra, initial encounter for closed fracture Disposition: Admitted As Inpatient Forms: ED Satisfaction Letter Time of Disposition: 20:30 General Adult HPI - General Chief complaint: ED Fall Stated complaint: abdominal pain Time Seen by Provider: 12/16/18 17:24 Source: patient, EMS Limitations: no limitations - History of Present Illness Pain Scale: 10 - Related Data Home Medications Medication Instructions Recorded Confirmed Albuterol Sulfate [Ventolin Hfa] 2 puff IH Q4H PRN 07/22/17 12/09/18 Levothyroxine Sodium [Synthroid] 137 mcg PO DAILY 07/22/17 12/09/18 Simvastatin [Zocor] 40 mg PO HS 07/22/17 12/09/18 Ipratropium/Albuterol Neb [Duoneb] 3 ml IH Q6HR PRN 04/05/18 12/09/18 Famotidine [Pepcid] 40 mg PO DAILY 06/14/18 12/09/18 Pioglitazone HCl 30 mg PO DAILY 06/14/18 12/09/18 Venlafaxine HCl [Venlafaxine HCl 150 mg PO DAILY 06/14/18 12/09/18 ER] Benztropine Mesylate 0.5 mg PO DAILY 09/24/18 12/09/18 Lidocaine [Lidoderm] 1 each TP DAILY 11/23/18 12/09/18 Melatonin 5 mg PO HS 11/23/18 12/09/18 Multivitamin with Minerals 1 each PO DAILY 11/23/18 12/09/18 [One-A-Day Maximum Formula] Insulin LISPRO [HumaLOG] 0 units SQ TIDWM 12/07/18 12/09/18 Acetaminophen [Tylenol] 1,000 mg PO TID PRN 12/09/18 12/09/18 Aripiprazole [Abilify] 15 mg PO DAILY 12/09/18 12/09/18 Glimepiride [Amaryl] 1 mg PO DAILY 12/09/18 12/09/18 MOM Conc [MILK OF MAGNESIA conc] 30 ml GTUBE DAILY 12/09/18 12/09/18 Methyl Salicylate/Menth/Camph 1 appl TP AD 12/09/18 12/09/18 [Bengay Ultra Strength Cream] Nicotine Patch [Nicoderm] 14 mg TP DAILY 12/09/18 12/09/18 Quetiapine Fumarate [Seroquel] 25 mg PO DAILY 12/09/18 12/09/18 Previous Rx's Medication Instructions Recorded ARIPiprazole [Abilify] 15 mg PO DAILY tablet 12/10/18 Gabapentin [Neurontin] 400 mg PO TID #12 capsule 12/10/18 Insulin Degludec [Tresiba 20 unit SQ DAILY 30 Days 12/10/18 Flextouch U-100] insuln.pen Allergies Allergy/AdvReac Type Severity Reaction Status Date / Time prednisone AdvReac See Verified 12/09/18 11:24 Comments Constitutional: Denies: fever, chills Cardiovascular: Denies: chest pain, palpitations, syncope Respiratory: Denies: cough, dyspnea Gastrointestinal: Reports: abdominal pain. Denies: nausea, vomiting, diarrhea Genitourinary: Denies: urgency, dysuria, frequency Musculoskeletal: Reports: back pain, other (Left hip and left shoulder pain.). Denies: neck pain Integumentary: Denies: rash Neurological: Reports: weakness. 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: Reports: no SENIOR UNDERWRITING ASSISTANT history - Social History Smoking Status: Former smoker Smokeless Tobacco Status: No Alcohol use: Reports: none Drug use: Reports: marijuana Physical Exam - General Limitations: no limitations General appearance: alert, in no apparent distress Course Vital Signs Temperature 98.4 F 12/16/18 17:28 Pulse Rate 89 12/16/18 17:28 Respiratory Rate 18 12/16/18 17:28 Blood Pressure 146/92 12/16/18 17:28 O2 Sat by Pulse Oximetry 98 12/16/18 17:28 Temperature 98.4 F 12/16/18 17:28 Pulse Rate 89 12/16/18 18:27 Respiratory Rate 16 12/16/18 18:27 Blood Pressure 129/64 12/16/18 18:27 O2 Sat by Pulse Oximetry 99 12/16/18 18:27 Oxygen Delivery Oxygen Delivery Room Air Medical Decision Making - Lab Data Result diagrams: 12/16/18 18:21 12/16/18 18:21 Lab Results 12/16/18 12/16/18 Range/Units 18:21 18:21 WBC 10.0 (4.3-11.1) K/mcL RBC 4.23 (3.82-4.97) M/mcL Hgb 12.9 (11.5-15.4) g/dL Hct 40.4 (35.3-44.9) % MCV 95.5 (83.0-100.0) fL MCH 30.5 (28.0-33.3) pg MCHC 31.9 (31.6-35.5) g/dL RDW 14.7 H (11.5-14.5) % Plt Count 274 (140-400) K/mcL MPV 9.9 (9.4-12.4) fL Immature Gran % 0.4 (0-4) % Seg Neutrophils % 78.2 % Lymphocytes % 14.9 % Monocytes % 5.8 % Eosinophils % 0.2 % Basophils % 0.5 % Neutrophils # 7.8 (1.6-8.9) K/mcL Lymphocytes # 1.5 (0.6-4.6) K/mcL Monocytes # 0.6 (0.0-1.3) K/mcL Eosinophils # 0.0 (0.0-0.6) K/mcL Basophils # 0.1 (0.0-0.2) K/mcL Sodium 140 (136-145) mEq/L Potassium 4.0 (3.5-5.1) mEq/L Chloride 101 (98-107) mEq/L Carbon Dioxide 28 (23-29) mEq/L BUN 28 H (8-23) mg/dL Creatinine 1.18 (0.60-1.20) mg/dL Est GFR ( Amer) 55 L (> 60) Est GFR (Non-Af Amer) 45 L (> 60) BUN/Creatinine Ratio 24 (6-26) Glucose 196 H (70-105) mg/dL Calculated Osmolality 301 H (280-300) Calcium 9.3 (8.6-10.3) mg/dL Total Bilirubin 0.6 (0.3-1.0) mg/dL AST 16 (13-39) Units/L ALT 11 (7-52) Units/L Alkaline Phosphatase 366 H (34-104) Units/L Serum Total Protein 7.0 (6.4-8.9) g/dL Albumin 3.7 (3.5-5.7) g/dL Globulin 3.3 (2.4-3.5) g/dL Albumin/Globulin Ratio 1.1 (1.1-2.2) Attestation Statement - Attestation Attestation: I reviewed the residents documentation and agree with the residents assessment and plan of care. I have personally had face to face time with the patient. (Brief History, Brief Exam, and MDM) I personally supervised and was present for the lobo/critical portions of the following procedures completed by the resident: (add procedures performed here). 68 year old female presents to the ED with complaints of fall from two days ago and states that she is havng increased back pain. Edmund has a unstable lumbar fracture cocnering for hte posterior ligament and multiple other new compression fractures. We have consulted with Dr. Skaggs and he will see edmund in consult. Admit to medicine
[2018-12-16] MEDS ORDERED: Naloxone 0.4 MG/ML INJ IVP PRN (21:15)
[2018-12-16] MEDS ORDERED: *HR* HYDROcodone/Acet 5/325 mg TABLET PO PRN (21:15)
[2018-12-16] MEDS ORDERED: Acetaminophen 325 MG TABLET PO PRN (21:15)
[2018-12-16] MEDS ORDERED: *HR* Dextrose 50 % in Water (Syg) 50 ML SYRINGE IVP PRN (21:15)
[2018-12-16] MEDS ORDERED: Dextrose Gel 15 GM/37.5 ML TUBE PO PRN ×2 (21:15)
[2018-12-16] MEDS ORDERED: Ipratropium/Albuterol Neb 3 ML IH PRN (21:45)
--- NOTE | 2018-12-16 23:05 | Internal Med History&Physical ---
Date of Encounter: 12/16/18 Time of Encounter: 23:04 Internal Medicine - H&P: HPI Chief complaint: back pain Admitted From: Home Plans for Post Hospital Care: Home History of present illness: Maritza Jaramillo is a 68 year old morbidly woman with multiple comorbidities as listed below who was discharged from here 5 days ago after being managed for acute metabolic encephalopathy and sepsis due to UTI. She is brought in again to the ER with the complaint of left hip, lower abdominal and left should pain after a fall she suffered 3 days ago while trying to get up from her wheelchair. She was found to be in pain diffusely in the ER and had multiple ecchymotic areas. [place] scans were done and found to have some new spinal compression fractures at different thoracolumbar levels with the T12 level showing retropulsion and facet widening. Neurosurgery was consulted and the patient will have evaluated. In the interim we will manage her pain and ensure she remains neurologically stable. Vitals: Reviewed General: Obese white woman lying in bed in NAD Skin: Warm and dry HEENT: Dry mucous membranes. No conjunctivae pallor. Neck: No lymphadenopathy. No JVD. No carotid bruits. No palpable thyroid. Chest: Normal thoracic expansion. Normal breath sounds. Clear to auscultation. Heart: Normal S1 & S2; rhythmic. No rubs or murmurs. Abdomen: Non-distended, soft and non-tender to palpation. No peritoneal reaction. Extremities: No clubbing, cyanosis or edema. No calf tenderness. Normal distal p ulses. Neurological: Awake, alert and oriented to person, place and time. No focal deficits. Point tenderness on spinous processes of thoracolumbar spine. Psych: Affect appropriate. Assessment/Plan 1. Spinal compression fractures: Multiple and seemingly unstable. Unclear if related to traumatic fall or if pathologic in nature. Will get MRI for better evaluation. She remains neurovascularly intact on physical exam. Will provide analgesics as needed, strict bedrest ordered and spine surgery consult requested. 2. Diabetes: Will place on basal and sliding scale insulin. 3. Mood disorder: Will resume anxiolytics. 4. DVT prophylaxis: SubQ heparin ordered. Past Med Surg Social Fam HX - Past Medical History Medical history: arthritis, COPD, dementia, diabetes, GERD, hyperlipidemia, hypertension, renal disease, thyroid disease Additional medical history: kidney failure. urinary retention Psychiatric history: anxiety, bipolar, depression, PTSD - Past Surgical History Surgical History: appendectomy, cholecystectomy, hysterectomy, other Additional surgical history: ORIF RT ARM - Social History Smoking Status: Former smoker Smokeless Tobacco Status: No Alcohol use: none Drug use: marijuana - Family History Father Hx Family Respiratory Disorders: Yes (lung cancer, smoker) Hx Family Cancer: Yes (lung cancer) Internal Medicine - H&P: Meds Albuterol Sulfate [Ventolin Hfa] 2 puff IH Q4H PRN 07/22/17 [History] Levothyroxine Sodium [Synthroid] 137 mcg PO DAILY 07/22/17 [History] Simvastatin [Zocor] 40 mg PO HS 07/22/17 [History] Ipratropium/Albuterol Neb [Duoneb] 3 ml IH Q6HR PRN 04/05/18 [History] Famotidine [Pepcid] 40 mg PO DAILY 06/14/18 [History] Pioglitazone HCl 30 mg PO DAILY 06/14/18 [History] Venlafaxine HCl [Venlafaxine HCl ER] 150 mg PO DAILY 06/14/18 [History] Benztropine Mesylate 0.5 mg PO DAILY 09/24/18 [History] Lidocaine [Lidoderm] 1 patch TP DAILY 11/23/18 [History] Melatonin 5 mg PO HS 11/23/18 [History] Multivitamin with Minerals [One-A-Day Maximum Formula] 1 tab PO DAILY 11/23/18 [History] Insulin LISPRO [HumaLOG] 0 units SQ TIDWM 12/07/18 [History] Acetaminophen [Tylenol] 1,000 mg PO TID PRN 12/09/18 [History] Aripiprazole [Abilify] 15 mg PO DAILY 12/09/18 [History] Glimepiride [Amaryl] 1 mg PO DAILY 12/09/18 [History] MOM Conc [MILK OF MAGNESIA conc] 30 ml GTUBE DAILY 12/09/18 [History] Methyl Salicylate/Menth/Camph [Bengay Ultra Strength Cream] 1 appl TP AD [History] Nicotine Patch [Nicoderm] 14 mg TP DAILY 12/09/18 [History] Quetiapine Fumarate [Seroquel] 25 mg PO DAILY 12/09/18 [History] Gabapentin [Neurontin] 400 mg PO TID #12 capsule 12/10/18 [Rx] Insulin Degludec [Tresiba Flextouch U-100] 20 unit SQ DAILY 30 Days insuln.pen 12/10/18 [Rx] Ertapenem [INVanz] 1,000 mg IVPB DAILY 12/16/18 [History] Tramadol HCl [Ultram] 50 mg PO Q4H PRN 12/16/18 [History] Allergy/AdvReac Type Severity Reaction Status Date / Time prednisone AdvReac See Verified 12/09/18 11:24 Comments All Systems PM: A 10-system review of systems was performed and is negative for pertinent findings except as documented above in the HPI. - Constitutional Vitals: Temp Pulse Resp BP Pulse Ox 98.4 F 83 16 115/63 92 12/16/18 17:28 12/16/18 21:59 12/16/18 21:59 12/16/18 21:59 12/16/18 21:59 Exam: . Internal Med - H&P Results - Labs CBC & Chem 7: 12/16/18 18:21 12/16/18 18:21 Labs: Short CBC 12/16/18 Range/Units 18:21 WBC 10.0 (4.3-11.1) K/mcL Hgb 12.9 (11.5-15.4) g/dL Hct 40.4 (35.3-44.9) % Plt Count 274 (140-400) K/mcL Neutrophils # 7.8 (1.6-8.9) K/mcL BMP 12/16/18 18:21 Sodium 140 Potassium 4.0 Chloride 101 Carbon Dioxide 28 BUN 28 H Creatinine 1.18 Glucose 196 H Calcium 9.3 Liver Function 12/16/18 Range/Units 18:21 Total Bilirubin 0.6 (0.3-1.0) mg/dL AST 16 (13-39) Units/L ALT 11 (7-52) Units/L Alkaline Phosphatase 366 H (34-104) Units/L Albumin 3.7 (3.5-5.7) g/dL - Impressions ITS Impressions Cervical Spine CT 12/16/18 17:52 IMPRESSION: Cervical spine CT: No acute fracture malalignment. Thoracic spine CT: Acute compression fracture at T12, with moderate dorsal retropulsion. There appears to be disruption of the posterior ligamentous complex, with widening of the facet joints at T12-L1. Subacute medial right rib fractures. Lumbar spine CT: Acute appearing compression fractures at L1 and L2, with mild dorsal retropulsion at L1 and no significant dorsal retropulsion at L. No involvement of the posterior elements is found. Possible mural thickening of the sigmoid colon and rectum. Correlate with any clinical evidence of proctitis/colitis. Findings were discussed with Soha Madison DO at 7:55 pm on 12/16/2018. D/ / Jeff Canela MD / Jeff Canela MD Interpreting Provider: Jeff Canela MD Head CT 12/16/18 17:52 IMPRESSION: No acute intracranial abnormality. D/ / Stef Painting MD / Stef Painting MD Interpreting Provider: Stef Painting MD Lumbar Spine CT 12/16/18 17:52 IMPRESSION: Cervical spine CT: No acute fracture malalignment. Thoracic spine CT: Acute compression fracture at T12, with moderate dorsal retropulsion. There appears to be disruption of the posterior ligamentous complex, with widening of the facet joints at T12-L1. Subacute medial right rib fractures. Lumbar spine CT: Acute appearing compression fractures at L1 and L2, with mild dorsal retropulsion at L1 and no significant dorsal retropulsion at L. No involvement of the posterior elements is found. Possible mural thickening of the sigmoid colon and rectum. Correlate with any clinical evidence of proctitis/colitis. Findings were discussed with Soha Madison DO at 7:55 pm on 12/16/2018. D/ / Jeff Canela MD / Jeff Canela MD Interpreting Provider: Jeff Canela MD Thoracic Spine CT 12/16/18 17:52 IMPRESSION: Cervical spine CT: No acute fracture malalignment. Thoracic spine CT: Acute compression fracture at T12, with moderate dorsal retropulsion. There appears to be disruption of the posterior ligamentous complex, with widening of the facet joints at T12-L1. Subacute medial right rib fractures. Lumbar spine CT: Acute appearing compression fractures at L1 and L2, with mild dorsal retropulsion at L1 and no significant dorsal retropulsion at L. No involvement of the posterior elements is found. Possible mural thickening of the sigmoid colon and rectum. Correlate with any clinical evidence of proctitis/colitis. Findings were discussed with Soha Madison DO at 7:55 pm on 12/16/2018. D/ / Jeff Canela MD / Jeff Canela MD Interpreting Provider: Jeff Canela MD Abdomen/Pelvis CT 12/16/18 17:53 IMPRESSION: Rectosigmoid fecal impaction. There is mild perirectal and pre sacral fat stranding. Stercoral colitis should be considered. There is partial lumbarization of S1. Using this numbering system and compared with 10/21/2018, there is a mild new compression fracture inferior endplate of T11, new marked compression with vertebral plana at T8 with smooth retropulsion of the superior endplate, moderate remote compression fracture of L1 and a new moderate compression fracture of L2. Mild bibasilar dependent parenchymal lung disease, likely atelectasis. D/ / Stef Painting MD / Stef Painting MD Interpreting Provider: Stef Painting MD Chest CT 12/16/18 17:53 IMPRESSION: 1. Cardiomegaly and trace bilateral pleural effusions may represent edema association with CHF. Bibasilar airspace opacities suspected to represent edema or atelectasis. 2. Granulomatous changes are also observed in the chest. 3. T12 compression fracture that is severe. Age is indeterminate, but this is new from a prior CT 10/21/2018. D/ / Amaury Olivas MD / Amaury Olivas MD Interpreting Provider: Amaury Olivas MD Hip X-Ray 12/16/18 17:54 IMPRESSION: 1. No definite acute findings in the left hip. 2. Bony demineralization partially limits evaluation fractures. Consider further evaluation with MRI or CT if there are clinical findings of fracture. 3. Mild degenerative changes of the sacroiliac joints and hips. D/ / David Wyman MD / David Wyman MD Interpreting Provider: David Wyman MD Lumbar Spine MRI 12/16/18 20:20 IMPRESSION: Abnormal signal involving L2-T12 and T11 suggestive of acute to subacute compression fractures. Foci of low signal intensity involving the vertebral body at T12 corresponds to the gas on the CT. Please note that similar findings can be seen with emphysematous osteomyelitis. If there is concern for osteomyelitis/discitis, postcontrast imaging could be beneficial. Abnormal signal within the posterior elements T11-T12 and T12-L1 suggestive of posterior ligament complex injury. Otherwise mild multilevel degenerate spondylosis involving the thoracic and lumbar spine. Moderate severe degenerate facet arthropathy lower lumbar spine. D/ / Justo Brown / Justo Brown Interpreting Provider: Justo Brown Thoracic Spine MRI 12/16/18 20:20 IMPRESSION: Abnormal signal involving L2-T12 and T11 suggestive of acute to subacute compression fractures. Foci of low signal intensity involving the vertebral body at T12 corresponds to the gas on the CT. Please note that similar findings can be seen with emphysematous osteomyelitis. If there is concern for osteomyelitis/discitis, postcontrast imaging could be beneficial. Abnormal signal within the posterior elements T11-T12 and T12-L1 suggestive of posterior ligament complex injury. Otherwise mild multilevel degenerate spondylosis involving the thoracic and lumbar spine. Moderate severe degenerate facet arthropathy lower lumbar spine. D/ / Justo Brown / Justo Brown Interpreting Provider: Justo Brown - Time Spent With Patient Total time spent is greater than 50% in coordination of care (as documented) at patient's floor/unit and/or counseling patient: Greater than 35 minutes
[2018-12-17] MEDS: Melatonin 3 MG TABLET PO SCH ×2 (01:31→19:49)
[2018-12-17] MEDS: *HR* Heparin 5,000 UNIT/ML VIAL SQ SCH ×4 (01:31→23:08)
[2018-12-17] MEDS: traMADol 50 MG TABLET PO PRN ×2 (05:47→16:06)
[2018-12-17] MEDS ORDERED: Methyl Salicylate/Menthol 28 GM TUBE TP PRN (09:00)
[2018-12-17] MEDS: Nicotine 14 MG PATCH.TD24 TD SCH (09:41)
[2018-12-17] MEDS: Insulin LISPRO 300 UNITS/3 ML VIAL SQ SCH ×3 (09:42→17:11)
[2018-12-17] MEDS: Venlafaxine XR (24 HR) 150 MG CAP.ER.24H PO SCH (09:43)
[2018-12-17] MEDS: Gabapentin 400 MG CAPSULE PO SCH ×3 (09:43→19:50)
[2018-12-17] MEDS: Insulin DETEMIR 100 UNIT/ML X5UNITS SQ SCH (09:43)
[2018-12-17] MEDS: Multivit/Ca/Min/Fe/FA 1 TAB TABLET PO SCH (09:44)
[2018-12-17] MEDS: Famotidine 20 MG TABLET PO SCH (09:44)
[2018-12-17] MEDS: ARIPiprazole 10 MG TABLET PO SCH (09:44)
[2018-12-17] MEDS: MOM Conc 10 ML UD.LIQ PO SCH (10:00)
[2018-12-17] MEDS: Sennosides/Docusate Sodium TABLET PO SCH ×2 (10:00→19:50)
--- NOTE | 2018-12-17 10:03 | Spine Progress Note ---
Date of Encounter: 12/17/18 Time of Encounter: 09:58 - Assessment and Plan (1) Burst fracture of T12 vertebra Current Visit: Yes Status: Acute On exam she is in obvious distress secondary to back pain. She rates the pain a 9 on a pain scale. Afebrile vital signs stable. She is grossly neurovascularly intact with regard to her bilateral lower extremities. Her hips move symmetrically. She has no clonus. CT scan of the thoracic and lumbar spines reveals compression fractures at L1 and L2 and a burst fracture at T12 with 70% loss of height and some retropulsion. There is widening of the facets and the distances between the spinous processes consistent with posterior ligamentous complex injury. MRI of the lumbar spine reveals a burst fracture T12 with associated posterior ligamentous complex injury. There are acute compression fractures at L1 and L2. Impression: Unstable burst fracture T12 with associated vertebral compression fractures L1 and L2. Due to the unstable nature of the fracture at T12 the patient is going to require stabilization in the form of an instrumented posterior spinal fusion T10-L3. The patient will go with medical optimization and clearance measures and we will plan to the procedure Wednesday. Subjective Principal diagnosis: Burst fracture T12, compression fractures L1-L2 Interval history: Patient complains of severe back pain after a fall. She was brought to [facility] ER for definitive management. She is found to have a burst fracture with associated posterior ligamentous complex injury as well as compression fractures of L1 and L2. We are asked to see regarding management of these fractures. She denies bowel bladder symptoms or radicular symptoms in the lower extremity. Objective Vital signs: Vital Signs Temp Pulse Resp BP Pulse Ox 12/17/18 08:56 97.4 F L 78 18 119/65 95 12/17/18 05:42 98.0 F 72 20 113/71 97 12/17/18 00:05 98.0 F 89 14 128/58 95 12/16/18 23:23 16 120/66 12/16/18 21:59 83 16 115/63 92 12/16/18 18:27 89 16 129/64 99 12/16/18 17:28 98.4 F 89 18 146/92 98 Intake and Output 12/16/18 12/17/18 12/17/18 23:59 07:59 15:59 Intake Total 1000 / 1000 0 / 0 Output Total 300 / 700 400 / 700 Balance 1000 / 1000 -300 / -700 -400 / -700 Intake: IV Fluids 1000 / 1000 0.9 % Sodium Chloride 1,000 ML 1000 / 1000 @ 999 mls/hr IVC .Q1H1M ONE Rx# :[id number] Oral 0 / 0 Output: Catheter 300 / 700 400 / 700 Other: Stool Size Large Copious Stool Consistency soft loose formed soft Stool Color Brown Brown # Bowel Movements 1 1 Weight 117.072 kg 113.68 kg Blood Glucose* 134 159 Patient Weight 12/17/18 23:59 Weight 113.68 kg - Labs CBC & BMP: 12/16/18 18:21 12/16/18 18:21 Labs: Abnormal lab results RDW 14.7 % (11.5-14.5) H 12/16/18 18:21 ESR 56 mm/hr (0-15) H 12/16/18 18:21 BUN 28 mg/dL (8-23) H 12/16/18 18:21 Est GFR ( Amer) 55 (> 60) L 12/16/18 18:21 Est GFR (Non-Af Amer) 45 (> 60) L 12/16/18 18:21 Glucose 196 mg/dL (70-105) H 12/16/18 18:21 POC Glucose 159 mg/dL (70-99) H 12/17/18 08:26 301 (280-300) H 12/16/18 18:21 366 Units/L (34-104) H 12/16/18 18:21 21 mg/L (Less than 10) H 12/16/18 18:21 Consult Discharge Plan - Plan Referrals: Alex Steward MD [Primary Care Provider] -
[2018-12-17] MEDS: *HR* OxyCODONE Immed Rel 5 MG TABLET PO PRN ×2 (10:07→18:27)
--- NOTE | 2018-12-17 11:29 | Internal Med Progress Note ---
Hospitalist Progress Note - Encounter Date of Encounter: 12/17/18 Time of Encounter: 09:45 - Subjective Interval History: H&P reviewed. Patient continues to complain of severe back pain. Denies any abdominal pain or constipation. Has regular BM according to her and she had copious amount of stool overnight x 2 as well. No fever overnight - Exam Vitals: Temp Pulse Resp BP Pulse Ox 97.4 F L 78 18 119/65 95 12/17/18 08:56 12/17/18 08:56 12/17/18 08:56 12/17/18 08:56 12/17/18 08:56 Exam: Vitals: Reviewed General: Obese white woman lying in bed in NAD Chest: Normal thoracic expansion. Normal breath sounds. Clear to auscultation. Heart: Normal S1 & S2; rhythmic. No rubs or murmurs. Abdomen: Non-distended, soft and non-tender to palpation. MSK: Tenderness along the thoracic/upper lumbar spine without obvious deformity. Neurological: Able to move both LEs although limited by pain. No numbness - Assessment and Plan (1) Burst fracture of T12 vertebra Current Visit: Yes Status: Acute Assessment and Plan: following an episode of fall for spine surgery evaluation (2) Rib fracture Current Visit: Yes Status: Acute Assessment and Plan: also a sequelae of mechanical fall conservative mx (3) Pre-op evaluation Current Visit: Yes Status: Acute Assessment and Plan: Patient does not have any signs and symptoms of ACS or malignant arrhythmia will get EKG RCRI 1, 0.9% risk of MACE Echocardiogram 05/2018 unremarkable stress test 09/2015 normal If EKG is unremarkable, pt would be considered low risk for surgery hence no further testing would be indicated (4) CKD (chronic kidney disease) stage 3, GFR 30-59 ml/min Current Visit: No Status: Chronic Assessment and Plan: Cr at baseline Avoid nephrotoxins (5) COPD (chronic obstructive pulmonary disease) Current Visit: No Status: Chronic Assessment and Plan: not in exacerbation PRN albuterol (6) Diabetes mellitus Current Visit: No Status: Chronic Assessment and Plan: Continue basal bolus insulin (7) Hypothyroid Current Visit: No Status: Chronic Assessment and Plan: Resume home meds (8) Constipation Current Visit: Yes Status: Acute Assessment and Plan: CT scan done overnight was reported as rectosigmoid fecal impaction but pt subsequently had copious amount of bowel movement x 2 and is currently denying any abdominal discomfort ?stercoral colitis continue bowel regimen briefly discussed with surgery. Last colonoscopy on 11/2015 unremarkable. For outpt colonoscopy (9) UTI due to extended-spectrum beta lactamase (ESBL) producing Escherichia coli Current Visit: No Status: Resolved Assessment and Plan: recently admitted for sepsis due to ESBL E. coli, discharged on 12/10 on 5 more days of Invanz. Completed the course DVT Prophylaxis: SQ heparin - Time Spent with Patient Total time spent is greater than 50% in coordination of care (as documented) at patient's floor/unit and/or counseling patient: Greater than 35 minutes Plan of Care Discussed with: patient (discussed with RN) Internal Medicine: Result - Labs CBC & Chem 7: 12/16/18 18:21 12/16/18 18:21 Labs: Short CBC 12/16/18 Range/Units 18:21 WBC 10.0 (4.3-11.1) K/mcL Hgb 12.9 (11.5-15.4) g/dL Hct 40.4 (35.3-44.9) % Plt Count 274 (140-400) K/mcL Neutrophils # 7.8 (1.6-8.9) K/mcL BMP 12/16/18 18:21 Sodium 140 Potassium 4.0 Chloride 101 Carbon Dioxide 28 BUN 28 H Creatinine 1.18 Glucose 196 H Calcium 9.3 Liver Function 12/16/18 Range/Units 18:21 Total Bilirubin 0.6 (0.3-1.0) mg/dL AST 16 (13-39) Units/L ALT 11 (7-52) Units/L Alkaline Phosphatase 366 H (34-104) Units/L Albumin 3.7 (3.5-5.7) g/dL - Impressions Impressions Cervical Spine CT 12/16/18 17:52 IMPRESSION: Cervical spine CT: No acute fracture malalignment. Thoracic spine CT: Acute compression fracture at T12, with moderate dorsal retropulsion. There appears to be disruption of the posterior ligamentous complex, with widening of the facet joints at T12-L1. Subacute medial right rib fractures. Lumbar spine CT: Acute appearing compression fractures at L1 and L2, with mild dorsal retropulsion at L1 and no significant dorsal retropulsion at L. No involvement of the posterior elements is found. Possible mural thickening of the sigmoid colon and rectum. Correlate with any clinical evidence of proctitis/colitis. Findings were discussed with Soha Madison DO at 7:55 pm on 12/16/2018. D/ / Jeff Canela MD / Jeff Canela MD Interpreting Provider: Jeff Canela MD Head CT 12/16/18 17:52 IMPRESSION: No acute intracranial abnormality. D/ / Stef Painting MD / Stef Painting MD Interpreting Provider: Stef Painting MD Lumbar Spine CT 12/16/18 17:52 IMPRESSION: Cervical spine CT: No acute fracture malalignment. Thoracic spine CT: Acute compression fracture at T12, with moderate dorsal retropulsion. There appears to be disruption of the posterior ligamentous complex, with widening of the facet joints at T12-L1. Subacute medial right rib fractures. Lumbar spine CT: Acute appearing compression fractures at L1 and L2, with mild dorsal retropulsion at L1 and no significant dorsal retropulsion at L. No involvement of the posterior elements is found. Possible mural thickening of the sigmoid colon and rectum. Correlate with any clinical evidence of proctitis/colitis. Findings were discussed with Soha Madison DO at 7:55 pm on 12/16/2018. D/ / Jeff Canela MD / Jeff Canela MD Interpreting Provider: Jeff Canela MD Thoracic Spine CT 12/16/18 17:52 IMPRESSION: Cervical spine CT: No acute fracture malalignment. Thoracic spine CT: Acute compression fracture at T12, with moderate dorsal retropulsion. There appears to be disruption of the posterior ligamentous complex, with widening of the facet joints at T12-L1. Subacute medial right rib fractures. Lumbar spine CT: Acute appearing compression fractures at L1 and L2, with mild dorsal retropulsion at L1 and no significant dorsal retropulsion at L. No involvement of the posterior elements is found. Possible mural thickening of the sigmoid colon and rectum. Correlate with any clinical evidence of proctitis/colitis. Findings were discussed with Soha Madison DO at 7:55 pm on 12/16/2018. D/ / Jeff Canela MD / Jeff Canela MD Interpreting Provider: Jeff Canela MD Abdomen/Pelvis CT 12/16/18 17:53 IMPRESSION: Rectosigmoid fecal impaction. There is mild perirectal and pre sacral fat stranding. Stercoral colitis should be considered. There is partial lumbarization of S1. Using this numbering system and compared with 10/21/2018, there is a mild new compression fracture inferior endplate of T11, new marked compression with vertebral plana at T8 with smooth retropulsion of the superior endplate, moderate remote compression fracture of L1 and a new moderate compression fracture of L2. Mild bibasilar dependent parenchymal lung disease, likely atelectasis. D/ / Stef Painting MD / Stef Painting MD Interpreting Provider: Stef Painting MD Chest CT 12/16/18 17:53 IMPRESSION: 1. Cardiomegaly and trace bilateral pleural effusions may represent edema association with CHF. Bibasilar airspace opacities suspected to represent edema or atelectasis. 2. Granulomatous changes are also observed in the chest. 3. T12 compression fracture that is severe. Age is indeterminate, but this is new from a prior CT 10/21/2018. D/ / Amaury Olivas MD / Amaury Olivas MD Interpreting Provider: Amaury Olivas MD Hip X-Ray 12/16/18 17:54 IMPRESSION: 1. No definite acute findings in the left hip. 2. Bony demineralization partially limits evaluation fractures. Consider further evaluation with MRI or CT if there are clinical findings of fracture. 3. Mild degenerative changes of the sacroiliac joints and hips. D/ / David Wyman MD / David Wyman MD Interpreting Provider: David Wyman MD Lumbar Spine MRI 12/16/18 20:20 IMPRESSION: Abnormal signal involving L2-T12 and T11 suggestive of acute to subacute compression fractures. Foci of low signal intensity involving the vertebral body at T12 corresponds to the gas on the CT. Please note that similar findings can be seen with emphysematous osteomyelitis. If there is concern for osteomyelitis/discitis, postcontrast imaging could be beneficial. Abnormal signal within the posterior elements T11-T12 and T12-L1 suggestive of posterior ligament complex injury. Otherwise mild multilevel degenerate spondylosis involving the thoracic and lumbar spine. Moderate severe degenerate facet arthropathy lower lumbar spine. D/ / Justo Brown / Justo Brown Interpreting Provider: Justo Brown Thoracic Spine MRI 12/16/18 20:20 IMPRESSION: Abnormal signal involving L2-T12 and T11 suggestive of acute to subacute compression fractures. Foci of low signal intensity involving the vertebral body at T12 corresponds to the gas on the CT. Please note that similar findings can be seen with emphysematous osteomyelitis. If there is concern for osteomyelitis/discitis, postcontrast imaging could be beneficial. Abnormal signal within the posterior elements T11-T12 and T12-L1 suggestive of posterior ligament complex injury. Otherwise mild multilevel degenerate spondylosis involving the thoracic and lumbar spine. Moderate severe degenerate facet arthropathy lower lumbar spine. D/ / Justo Brown / Justo Brown Interpreting Provider: Justo Brown Consult Discharge Plan - Plan Referrals: Alex Steward MD [Primary Care Provider] - _ (2) Rib fracture Qualifiers: Encounter type: subsequent encounter Rib fracture type: multiple ribs Fracture type: closed Laterality: unspecified laterality Fracture healing: with routine healing Qualified Code(s): S22.49XD - Multiple fractures of ribs, unspecified side, subsequent encounter for fracture with routine healing (5) COPD (chronic obstructive pulmonary disease) Qualifiers: Emphysema type: unspecified Qualified Code(s): J43.9 - Emphysema, unspecified (6) Diabetes mellitus Qualifiers: Diabetes mellitus type: type 2 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 behavioral 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 insulin use: with mcfp use Diabetes mellitus complication status: with kidney complications Diabetes mellitus complication detail: with chronic kidney disease Chronic kidney disease stage: stage 3 (moderate) Qualified Code(s): E11.22 - Type 2 diabetes mellitus with diabetic chronic kidney disease; N18.3 - Chronic kidney disease, stage 3 (moderate); Z79.4 - gis specialist (current) use of insulin (7) Hypothyroid Qualifiers: Hypothyroidism type: unspecified Qualified Code(s): E03.9 - Hypothyroidism, unspecified (8) Constipation Qualifiers: Constipation type: unspecified constipation type Qualified Code(s): K59.00 - Constipation, unspecified
[2018-12-17] MEDS: Ketorolac 30 MG/ML VIAL IVP PRN (19:50)
[2018-12-17] MEDS ORDERED: Insulin LISPRO 300 UNITS/3 ML VIAL SQ SCH (21:00)
[2018-12-18] MEDS: *HR* Heparin 5,000 UNIT/ML VIAL SQ SCH ×3 (05:57→21:25)
[2018-12-18 07:58] LABS: Basophils % 0.4 %; Eosinophils # 0.2 K/mcL (0.0-0.6); Eosinophils % 2.6 %; Hematocrit 40.7 % (35.3-44.9); Hemoglobin 12.5 g/dL (11.5-15.4); Immature Granulocytes % 0.4 % (0-4); Lymphocytes # 1.7 K/mcL (0.6-4.6); Lymphocytes % 25.4 %; Mean Corpuscular HGB Conc 30.7 g/dL (31.6-35.5); Mean Corpuscular Hemoglobin 30.7 pg (28.0-33.3); Mean Platelet Volume 10.1 fL (9.4-12.4); Monocytes # 0.6 K/mcL (0.0-1.3); Monocytes % 9.4 %; Neutrophils # 4.2 K/mcL (1.6-8.9); Platelet Count 200 K/mcL (140-400); Red Blood Count 4.07 M/mcL (3.82-4.97); Red Cell Distribution Width 14.6 % (11.5-14.5); Segmented Neutrophils % 61.8 %; White Blood Count 6.8 K/mcL (4.3-11.1)
[2018-12-18 08:16] LABS: Calcium 8.8 mg/dL (8.6-10.3); Potassium 3.7 mEq/L (3.5-5.1)
[2018-12-18] MEDS: Insulin LISPRO 300 UNITS/3 ML VIAL SQ SCH ×3 (08:35→16:20)
[2018-12-18] MEDS: Insulin DETEMIR 100 UNIT/ML X5UNITS SQ SCH (10:13)
[2018-12-18] MEDS: *HR* OxyCODONE Immed Rel 5 MG TABLET PO PRN ×2 (10:18→21:25)
[2018-12-18] MEDS: Gabapentin 400 MG CAPSULE PO SCH ×3 (10:18→21:24)
[2018-12-18] MEDS: ARIPiprazole 10 MG TABLET PO SCH (10:18)
[2018-12-18] MEDS: Venlafaxine XR (24 HR) 150 MG CAP.ER.24H PO SCH (10:19)
[2018-12-18] MEDS: Multivit/Ca/Min/Fe/FA 1 TAB TABLET PO SCH (10:19)
[2018-12-18] MEDS: Nicotine 14 MG PATCH.TD24 TD SCH (10:19)
[2018-12-18] MEDS: Famotidine 20 MG TABLET PO SCH (10:19)
[2018-12-18] MEDS: Sennosides/Docusate Sodium TABLET PO SCH ×2 (10:19→21:24)
[2018-12-18] MEDS: MOM Conc 10 ML UD.LIQ PO SCH (10:23)
--- NOTE | 2018-12-18 11:23 | Internal Med Progress Note ---
Hospitalist Progress Note - Encounter Date of Encounter: 12/18/18 Time of Encounter: 10:00 - Subjective Interval History: No acute events overnight, her pain is tolerable. Denies any chest pain, SOB, palpitation, orthopnea, or LE swelling. No fever overnight. Had multiple BMs overnight. - Exam Vitals: Temp Pulse Resp BP Pulse Ox 97.8 F 77 18 110/65 93 12/18/18 07:08 12/18/18 07:08 12/18/18 07:08 12/18/18 07:08 12/18/18 07:08 Exam: Vitals: Reviewed General: Obese white woman lying in bed in NAD Chest: Normal thoracic expansion. Normal breath sounds. Clear to auscultation. Heart: Normal S1 & S2; rhythmic. No rubs or murmurs. Abdomen: Non-distended, soft and non-tender to palpation. MSK: Tenderness along the thoracic/upper lumbar spine without obvious deformity. Neurological: Able to move both LEs although limited by pain. No numbness - Assessment and Plan (1) Burst fracture of T12 vertebra Current Visit: Yes Status: Acute Assessment and Plan: following an episode of fall appreciates spine surgery evaluation, for intervention tomorrow (2) Rib fracture Current Visit: Yes Status: Acute Assessment and Plan: also a sequelae of mechanical fall conservative mx (3) Pre-op evaluation Current Visit: Yes Status: Acute Assessment and Plan: Patient does not have any signs and symptoms of ACS or malignant arrhythmia EKG without concerning ischemic changes RCRI 1, 0.9% risk of MACE Echocardiogram 05/2018 unremarkable stress test 09/2015 normal pt would be considered low risk for surgery hence no further testing would be indicated (4) CKD (chronic kidney disease) stage 3, GFR 30-59 ml/min Current Visit: No Status: Chronic Assessment and Plan: Cr at baseline Avoid nephrotoxins (5) COPD (chronic obstructive pulmonary disease) Current Visit: No Status: Chronic Assessment and Plan: not in exacerbation PRN albuterol (6) Diabetes mellitus Current Visit: No Status: Chronic Assessment and Plan: Continue basal bolus insulin but will decrease to low dose sliding scale (7) Hypothyroid Current Visit: No Status: Chronic Assessment and Plan: Resume home meds (8) Constipation Current Visit: Yes Status: Acute Assessment and Plan: Initial CT scan was reported as rectosigmoid fecal impaction Since admission, pt continues to have copious amount of bowel movement. Denies any abdominal discomfort or N/V continue bowel regimen Last colonoscopy on 11/2015 unremarkable. For outpt colonoscopy (9) UTI due to extended-spectrum beta lactamase (ESBL) producing Escherichia coli Current Visit: No Status: Resolved Assessment and Plan: recently admitted for sepsis due to ESBL E. coli, discharged on 12/10 on 5 more days of Invanz. Completed the course DVT Prophylaxis: SQ heparin - Time Spent with Patient Total time spent is greater than 50% in coordination of care (as documented) at patient's floor/unit and/or counseling patient: 25 - 35 minutes Plan of Care Discussed with: patient Internal Medicine: Result - Labs CBC & Chem 7: 12/18/18 06:47 12/18/18 06:47 Labs: Short CBC 12/18/18 Range/Units 06:47 WBC 6.8 (4.3-11.1) K/mcL Hgb 12.5 (11.5-15.4) g/dL Hct 40.7 (35.3-44.9) % Plt Count 200 (140-400) K/mcL Neutrophils # 4.2 (1.6-8.9) K/mcL BMP 12/18/18 06:47 Sodium 140 Potassium 3.7 Chloride 106 Carbon Dioxide 27 BUN 21 Creatinine 1.11 Glucose 70 Calcium 8.8 Consult Discharge Plan - Plan Referrals: Alex Steward MD [Primary Care Provider] - (2) Rib fracture Qualifiers: Encounter type: subsequent encounter Rib fracture type: multiple ribs Fracture type: closed Laterality: unspecified laterality Fracture healing: with routine healing Qualified Code(s): S22.49XD - Multiple fractures of ribs, unspecified side, subsequent encounter for fracture with routine healing (5) COPD (chronic obstructive pulmonary disease) Qualifiers: Emphysema type: unspecified Qualified Code(s): J43.9 - Emphysema, unspecified (6) Diabetes mellitus Qualifiers: Diabetes mellitus type: type 2 Diabetes mellitus exterminator insulin use: with correction use Diabetes mellitus complication status: with kidney complications Diabetes mellitus complication detail: with chronic kidney disease Chronic kidney disease stage: stage 3 (moderate) Qualified Code(s): E11.22 - Type 2 diabetes mellitus with diabetic chronic kidney disease; N18.3 - Chronic kidney disease, stage 3 (moderate); Z79.4 - computer terminal operator (current) use of insulin (7) Hypothyroid Qualifiers: Hypothyroidism type: unspecified Qualified Code(s): E03.9 - Hypothyroidism, unspecified (8) Constipation Qualifiers: Constipation type: unspecified constipation type Qualified Code(s): K59.00 - Constipation, unspecified
[2018-12-18] MEDS ORDERED: Insulin LISPRO 300 UNITS/3 ML VIAL SQ SCH (11:24)
[2018-12-18] MEDS: Melatonin 3 MG TABLET PO SCH (21:25)
[2018-12-19] MEDS: Ketorolac 30 MG/ML VIAL IVP PRN (01:09)
[2018-12-19] MEDS: *HR* Heparin 5,000 UNIT/ML VIAL SQ SCH (06:16)
[2018-12-19 06:48] LABS: Basophils % 0.6 %; Eosinophils # 0.2 K/mcL (0.0-0.6); Hematocrit 38.7 % (35.3-44.9); Hemoglobin 11.9 g/dL (11.5-15.4); Immature Granulocytes % 0.6 % (0-4); Lymphocytes % 29.7 %; Mean Corpuscular HGB Conc 30.7 g/dL (31.6-35.5); Mean Corpuscular Hemoglobin 30.4 pg (28.0-33.3); Mean Corpuscular Volume 98.7 fL (83.0-100.0); Monocytes # 0.5 K/mcL (0.0-1.3); Monocytes % 6.9 %; Neutrophils # 3.9 K/mcL (1.6-8.9); Platelet Count 209 K/mcL (140-400); Red Blood Count 3.92 M/mcL (3.82-4.97); Red Cell Distribution Width 14.6 % (11.5-14.5); Segmented Neutrophils % 59.2 %; White Blood Count 6.7 K/mcL (4.3-11.1)
[2018-12-19 07:01] LABS: Prothrombin Time 11.6 Seconds (9.4-12.1)
[2018-12-19 07:06] LABS: Calcium 8.6 mg/dL (8.6-10.3)
[2018-12-19] MEDS ORDERED: Bacitracin 50,000 UNIT, Polymyxin B Sulfate 500,000 UNIT, Sodium Chloride IRRigation 1,... IR ONE (08:00)
[2018-12-19] MEDS: MOM Conc 10 ML UD.LIQ PO SCH (08:14)
[2018-12-19] MEDS: Nicotine 14 MG PATCH.TD24 TD SCH (08:14)
[2018-12-19] MEDS: Famotidine 20 MG TABLET PO SCH (08:14)
[2018-12-19] MEDS: Gabapentin 400 MG CAPSULE PO SCH (08:14)
[2018-12-19] MEDS: Sennosides/Docusate Sodium TABLET PO SCH (08:15)
[2018-12-19] MEDS: Multivit/Ca/Min/Fe/FA 1 TAB TABLET PO SCH (08:15)
[2018-12-19] MEDS: ARIPiprazole 10 MG TABLET PO SCH (08:15)
[2018-12-19] MEDS: Venlafaxine XR (24 HR) 150 MG CAP.ER.24H PO SCH (08:15)
--- NOTE | 2018-12-19 08:27 | Anesthesia Evaluation PreOp ---
Date of Encounter: 12/19/18 Time of Encounter: 11:01 - Past History Planned Operation: T10-L3 PLIF Cardiac History: OR (2011), HTN, Hyperlipidemia Pulmonary History: Former smoker, COPD (on O2 prn) JOB PRINTER History: Other (Bipolar) Other Medical History: Renal (CKD 3), Thyroid, Other (multiple unstable vertebral fxs. Recent sepsis and metabolic encephalopathy due to UTI) Anesthesia History: No Prior Anesthetic Complications, Past Anesthesia (ORIF arm, MADHU, appy, jarrell) Alcohol Use: none Drug use: marijuana Medications and Allergies Albuterol Sulfate [Ventolin Hfa] 2 puff IH Q4H PRN 07/22/17 [History] Levothyroxine Sodium [Synthroid] 137 mcg PO DAILY 07/22/17 [History] Simvastatin [Zocor] 40 mg PO HS 07/22/17 [History] Ipratropium/Albuterol Neb [Duoneb] 3 ml IH Q6HR PRN 04/05/18 [History] Famotidine [Pepcid] 40 mg PO DAILY 06/14/18 [History] Pioglitazone HCl 30 mg PO DAILY 06/14/18 [History] Venlafaxine HCl [Venlafaxine HCl ER] 150 mg PO DAILY 06/14/18 [History] Benztropine Mesylate 0.5 mg PO DAILY 09/24/18 [History] Lidocaine [Lidoderm] 1 patch TP DAILY 11/23/18 [History] Melatonin 5 mg PO HS 11/23/18 [History] Multivitamin with Minerals [One-A-Day Maximum Formula] 1 tab PO DAILY 11/23/18 [History] Insulin LISPRO [HumaLOG] 0 units SQ TIDWM 12/07/18 [History] Acetaminophen [Tylenol] 1,000 mg PO TID PRN 12/09/18 [History] Aripiprazole [Abilify] 15 mg PO DAILY 12/09/18 [History] Glimepiride [Amaryl] 1 mg PO DAILY 12/09/18 [History] MOM Conc [MILK OF MAGNESIA conc] 30 ml GTUBE DAILY 12/09/18 [History] Methyl Salicylate/Menth/Camph [Bengay Ultra Strength Cream] 1 appl TP AD 12/09/18 [History] Nicotine Patch [Nicoderm] 14 mg TP DAILY 12/09/18 [History] Quetiapine Fumarate [Seroquel] 25 mg PO DAILY 12/09/18 [History] Gabapentin [Neurontin] 400 mg PO TID #12 capsule 12/10/18 [Rx] Insulin Degludec [Tresiba Flextouch U-100] 20 unit SQ DAILY 30 Days insuln.pen 12/10/18 [Rx] Ertapenem [INVanz] 1,000 mg IVPB DAILY 12/16/18 [History] Tramadol HCl [Ultram] 50 mg PO Q4H PRN 12/16/18 [History] Allergy/AdvReac Type Severity Reaction Status Date / Time prednisone AdvReac See Verified 12/09/18 11:24 Comments - Meds/Allergy Pre-op Review Medications Reviewed: Yes Allergies Reviewed: Yes Beta Blockers on Current Med List: No Anesthesia Results - Labs 12/19/18 06:13 12/19/18 06:13 Laboratory Tests 12/07/18 12/19/18 16:22 06:13 PT 11.6 INR 1.0 APTT 32.1 - Imaging Additional studies: Chest CT: IMPRESSION: 1. Cardiomegaly and trace bilateral pleural effusions may represent edema association with CHF. Bibasilar airspace opacities suspected to represent edema or atelectasis. 2. Granulomatous changes are also observed in the chest. 3. T12 compression fracture that is severe. Age is indeterminate, but this is new from a prior CT 10/21/2018. Lumbar CT: IMPRESSION: Abnormal signal involving L2-T12 and T11 suggestive of acute to subacute compression fractures. Foci of low signal intensity involving the vertebral body at T12 corresponds to the gas on the CT. Please note that similar findings can be seen with emphysematous osteomyelitis. If there is concern for osteomyelitis/discitis, postcontrast imaging could be beneficial. Abnormal signal within the posterior elements T11-T12 and T12-L1 suggestive of posterior ligament complex injury. Otherwise mild multilevel degenerate spondylosis involving the thoracic and lumbar spine. Moderate severe degenerate facet arthropathy lower lumbar spine. Echo (06-14): Impressions: LVEF 70-75%. Normal LV chamber size, wall thickness and function. Normal right ventricular structure and function. No significant valvular dysfunction. No evidence of pulmonary hypertension. Anesthesia Exam Selected Entries 12/19/18 06:49 Temperature 97.7 F Pulse Rate 65 Respiratory Rate 18 Blood Pressure 113/67 O2 Sat by Pulse Oximetry 93 Oxygen Delivery Method Room Air - HEENT Pupil (Motor): EOMI Mallampati: III Teeth: Edentulous Oral Opening: Greater than 3 - JOB PRINTER LOC: Oriented JOB PRINTER Motor: Normal RUE, Normal LUE, Normal RLE, Normal LLE, Normal Face JOB PRINTER Sensory: Normal: RUE, LUE, RLE, LLE, Face - Cardiac Rhythm: Regular Murmur: None - Pulmonary Breath Sounds: bilateral Clear Respiratory Effort: Symmetrical Anesthesia Assess/Plan ASA Score: 4 Level of consciousness: Cooperative, Oriented Anesthetic Plan: General Monitoring Plan: Standard Monitors, A-Line Recovery Plan: PACU (patient aware she is high risk, is aware of potential vision loss with prone position, agreeable to lines (a-line and CVC). Will do T&S. Prednisone allergly is not an allergy- it causes her blood sugars to go up)
[2018-12-19] MEDS: Insulin LISPRO 300 UNITS/3 ML VIAL SQ SCH ×3 (08:29→23:04)
[2018-12-19] MEDS: Insulin DETEMIR 100 UNIT/ML X5UNITS SQ SCH (08:30)
[2018-12-19 09:25] LABS: Bilirubin,Urine Moderate (Negative); Blood,Urine Small (Negative); Clarity,Urine Clear (Clear); Color,Urine Yellow (Yellow); Glucose,Urine (UA) >=1000 mg/dL (Normal); Ketones,Urine 40 mg/dL (Negative); Leukocyte Esterase,Urine Large (Negative); Nitrite,Urine Negative (Negative); Protein,Urine 30 mg/dL (Neg-Trace); Specific Gravity,Urine 1.022 (1.010-1.025); Urobilinogen,Urine Normal (Normal)
[2018-12-19 09:28] LABS: Squamous Epithelial Cell,Urine Many per lpf (None-Few); WBC,Urine TNTC per hpf (0-3)
[2018-12-19 09:42] LABS: RBC,Urine 0-3 per hpf (0-3)
[2018-12-19 09:43] LABS: Yeast,Urine Many per hpf (None Seen)
[2018-12-19 09:44] LABS: Bacteria,Urine Moderate per hpf (None-Few)
[2018-12-19] MEDS ORDERED: Heparin 1,000 UNITS/500 mL 500 ML ONE (10:43)
[2018-12-19] MEDS ORDERED: *HR* Midazolam HCl 2 MG/2 ML VIAL ONE (10:45)
[2018-12-19] MEDS ORDERED: *HR* Remifentanil 1 MG VIAL IVP ONE ×2 (10:45→14:18)
--- NOTE | 2018-12-19 10:48 | Internal Med Progress Note ---
Hospitalist Progress Note - Encounter Date of Encounter: 12/19/18 Time of Encounter: 09:30 - Subjective Interval History: No acute events overnight. When asked about her back pain, pt states that back pain is tolerable but complains of suprapubic discomfort. No fever/chills or nausea/vomiting. Continues to have daily bowel movement - Exam Vitals: Temp Pulse Resp BP Pulse Ox 97.7 F 65 18 113/67 93 12/19/18 06:49 12/19/18 06:49 12/19/18 06:49 12/19/18 06:49 12/19/18 06:49 Exam: Vitals: Reviewed General: Obese white woman lying in bed in NAD Chest: Normal thoracic expansion. Normal breath sounds. Clear to auscultation. Heart: Normal S1 & S2; rhythmic. No rubs or murmurs. Abdomen: Non-distended, soft. Mild suprapubic tenderness. No rebound/guarding/rigidity : No CVA tenderness MSK: Tenderness along the thoracic/upper lumbar spine without obvious deformity. Neurological: Able to move both LEs although limited by pain. No numbness - Assessment and Plan (1) Burst fracture of T12 vertebra Current Visit: Yes Status: Acute Assessment and Plan: following an episode of fall appreciates spine surgery evaluation, for OR today (2) Rib fracture Current Visit: Yes Status: Acute Assessment and Plan: also a sequelae of mechanical fall conservative mx (3) UTI due to extended-spectrum beta lactamase (ESBL) producing Escherichia col i Current Visit: Yes Status: Acute Assessment and Plan: recently admitted for sepsis due to ESBL E. coli and treated with IV Invanz for a total of 7 days (discharged on 12/10 to [facility] with 5 more days which she should have completed on 12/15) she again complains of suprapubic discomfort with CT showing diffuse bladder wal l thickening as well as analysis positive for LE and moderate amount of bacteria No evidence of pyelonephritis will restart IV Invanz for now -> if she does not respond to abx, would consult ID (4) Pre-op evaluation Current Visit: Yes Status: Acute (5) CKD (chronic kidney disease) stage 3, GFR 30-59 ml/min Current Visit: No Status: Chronic Assessment and Plan: Cr at baseline Avoid nephrotoxins (6) COPD (chronic obstructive pulmonary disease) Current Visit: No Status: Chronic Assessment and Plan: not in exacerbation PRN albuterol (7) Diabetes mellitus Current Visit: No Status: Chronic Assessment and Plan: Continue basal bolus insulin (8) Hypothyroid Current Visit: No Status: Chronic Assessment and Plan: Resume home meds (9) Constipation Current Visit: Yes Status: Acute Assessment and Plan: Initial CT scan was reported as rectosigmoid fecal impaction Since admission, pt continues to adequate BM. CT scan done overnight confirms resolution of fecal impaction continue bowel regimen Last colonoscopy on 11/2015 unremarkable. For outpt colonoscopy DVT Prophylaxis: SQ heparin - Time Spent with Patient Total time spent is greater than 50% in coordination of care (as documented) at patient's floor/unit and/or counseling patient: 25 - 35 minutes Plan of Care Discussed with: patient Internal Medicine: Result - Labs CBC & Chem 7: 12/19/18 06:13 12/19/18 06:13 Labs: Short CBC 12/19/18 Range/Units 06:13 WBC 6.7 (4.3-11.1) K/mcL Hgb 11.9 (11.5-15.4) g/dL Hct 38.7 (35.3-44.9) % Plt Count 209 (140-400) K/mcL Neutrophils # 3.9 (1.6-8.9) K/mcL BMP 12/19/18 06:13 Sodium 137 Potassium 4.0 Chloride 101 Carbon Dioxide 25 BUN 18 Creatinine 1.10 Glucose 280 H Calcium 8.6 Urine 12/19/18 Range/Units 09:10 Urine Color Yellow (Yellow) Urine Clarity Clear (Clear) Urine pH 6.0 (5.0-8.0) pH Units Ur Specific [place] 1.022 (1.010-1.025) Urine Protein 30 H (Neg-Trace) mg/dL Urine Glucose (UA) >=1000 H (Normal) mg/dL - ABG Interpretation ABG results: PT/INR, D-dimer PT 11.6 Seconds (9.4-12.1) 12/19/18 06:13 - Impressions Impressions Abdomen/Pelvis CT 12/18/18 23:39 IMPRESSION: 1. Resolution of fecal impaction. 2. Diffuse bladder wall thickening suggests cystitis. D/ / Domenico Aguilar MD / Domenico Aguilar MD Interpreting Provider: Domenico Aguilar MD Consult Discharge Plan - Plan Referrals: Alex Steward MD [Primary Care Provider] - (2) Rib fracture Qualifiers: Encounter type: subsequent encounter Rib fracture type: multiple ribs F racture type: closed Laterality: unspecified laterality Fracture healing: with routine healing Qualified Code(s): S22.49XD - Multiple fractures of ribs, unspecified side, subsequent encounter for fracture with routine healing (6) COPD (chronic obstructive pulmonary disease) Qualifiers: Emphysema type: unspecified Qualified Code(s): J43.9 - Emphysema, unspecified (7) Diabetes mellitus Qualifiers: Diabetes mellitus type: type 2 Diabetes mellitus detention insulin use: with detention use Diabetes mellitus complication status: with kidney complications Diabetes mellitus complication detail: with chronic kidney disease Chronic kidney disease stage: stage 3 (moderate) Qualified Code(s): E11.22 - Type 2 diabetes mellitus with diabetic chronic kidney disease; N18.3 - Chronic kidney disease, stage 3 (moderate); 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
[2018-12-19] MEDS ORDERED: Lidocaine -MPF 4% 5 ML AMPUL ONE (10:50)
[2018-12-19] MEDS ORDERED: *HR* Rocuronium Bromide 50 MG/5 ML VIAL ONE (10:52)
[2018-12-19] MEDS ORDERED: Lidocaine -MPF 2% 2 ML VIAL ONE ×2 (10:52→10:54)
[2018-12-19] MEDS ORDERED: *HR* Propofol 200 MG/20 ML VIAL IVP ONE ×3 (10:52→15:52)
[2018-12-19] MEDS ORDERED: *HR* Succinylcholine 200 MG/10 ML VIAL IVP ONE (10:52)
[2018-12-19] MEDS ORDERED: Acetaminophen IV 1,000 MG/100 ML INFUS..BTL ONE (10:55)
[2018-12-19] MEDS ORDERED: Ertapenem 1,000 MG in 0.9 % Sodium Chloride Mini Bag 100 ML IVPB SCH (11:00)
[2018-12-19] MEDS ORDERED: Acetaminophen IV 1,000 MG/100 ML INFUS..BTL IVPB ONE (11:05)
[2018-12-19] MEDS ORDERED: *HR* Meperidine 25 MG/ML SYRINGE IVP PRN (11:05)
[2018-12-19] MEDS ORDERED: traMADol 50 MG TABLET PO PRN (11:05)
[2018-12-19] MEDS ORDERED: *HR* OxyCODONE Immed Rel 5 MG TABLET PO PRN (11:05)
[2018-12-19] MEDS ORDERED: *HR* Promethazine 25 MG/ML VIAL IVP PRN (11:05)
[2018-12-19] MEDS ORDERED: Ringers Solution, Lactated 1,000 ML IVC SCH (11:15)
[2018-12-19] MEDS ORDERED: *HR* PHENYLEPHRINE 1,000 MCG/10 ML SYRINGE IVP ONE (11:39)
[2018-12-19] MEDS ORDERED: EPHEDrine 50 MG/ML VIAL ONE (11:52)
--- NOTE | 2018-12-19 12:04 | Anesthesia Procedures ---
Date of Encounter: 12/19/18 Time of Encounter: 11:45 Procedures: Anesthesia - Central Line Placement Right IJ Consent obtained: written consent Time out performed: Yes Patient placed on monitor/pulse ox: Yes MD prep: mask, gown, gloves Central line prep: Chlorhexidine scrub, sterile drapes applied Ultrasound used for placement: Yes Technique: Seldinger Lumen Inserted: triple Size / Length: 7 Fr / 16 cm Post procedure: sutured in place, good blood return, all ports aspirated, flushed, capped, sterile dressing applied Patient tolerated procedure: well, no complications Complications: none Comments: indication for CVC: no peripheral access for complex surgical procedure in prone position. OR team aware of need for procedure and appropriate time out done. Circulating OR nurse completes checklist. P&D sterile, full body drape, US used for placement. Anatomy identified easily. Guidewire placed without arrythmias, catheter placed easily. Sutured in place. Bio-button placed with opsite dressing before sterile barrier removed. All ports easily aspirated. Will use catheter and check placement in PACU with CXR.
[2018-12-19] MEDS ORDERED: Propofol 500 MG/50 ML INFUS..BTL ONE ×2 (12:05→12:37)
[2018-12-19] MEDS ORDERED: *HR* Phenylephrine 10 MG/ML VIAL ONE (12:11)
--- NOTE | 2018-12-19 12:29 | Electrocardiograph Report ---
[address] [place], [place] [address] Test Date: 2018-12-17 Pat Name: Maritza Jaramillo Department: 114 Room: [facility] Gender: F Records Management Specialist: : [id number] Requested By: Jono Castellanos Order Number: [id number] Reading MD: Jonah Mchugh Measurements Intervals Bear Rate: 77 P: 56 RI: 161 QRS: -43 QRSD: 105 T: 50 QT: 386 QTc: 417 Interpretive Statements SINUS RHYTHM MARKED LEFT AXIS DEVIATION VOLTAGE CRITERIA FOR LVH POSSIBLE ANTERIOR MYOCARDIAL INFARCTION, PROBABLY OLD Electronically Signed On 12-19-2018 12:27:39 EDT by Jonah Mchugh
[2018-12-19] MEDS ORDERED: Ondansetron 4 MG/2 ML VIAL ONE (12:41)
[2018-12-19] MEDS ORDERED: Dexamethasone 4 MG/ML VIAL ONE (12:41)
[2018-12-19] MEDS ORDERED: Propofol 3,000 MG/300 ML INFUS..BTL IVC ONE (13:00)
[2018-12-19] MEDS ORDERED: *HR* Heparin 5,000 UNIT/ML VIAL ONE (14:20)
[2018-12-19 14:27] LABS: ABG Base Excess -4 mEq/L (-2 to 3); ABG Chloride 106 mEq/L (98-107); ABG Glucose 220 mg/dL (60-95); ABG HCO3 21 mEq/L (21-27); ABG Ionized Calcium 1.02 mmol/L (1.15-1.35); ABG Oxygen Saturation 100 % (95-98); ABG PCO2 37 mmHg (35-45); ABG PH 7.37 pH Units (7.32-7.45); ABG PO2 220 mmHg (85-104); ABG TCO2 22 mEq/L (20-26)
[2018-12-19] MEDS ORDERED: *HR* HYDROMORPHONE 2 MG/ML VIAL ONE (15:52)
--- NOTE | 2018-12-19 16:18 | Orthopedic Operative Note ---
Date of procedure: 12/19/18 Pre-op diagnosis: Unstable burst fracture T12, vertebral compression fractures L1 and L2. Post-op diagnosis: same Operation/Findings: Instrumented posterior spinal fusion T10-L3: The patient successfully underwent general endotracheal anesthesia. The patient was given antibiotics prior to the start of the procedure. Compression boots and stockings were used for deep vein thrombosis prophylaxis. A Cummins catheter was placed. Leads for neuro monitoring were placed on the upper and lower extremities. This included the cranium. The neuro monitoring personnel confirmed there were satisfactory readings prior to the start of the procedure. The patient was turned prone on the Alan table. The back was prepped and draped in the usual sterile fashion. An incision was was marked and centered over the involved T10-L3 levels in the mid line. The incision was deepened through the region above the lumbar fascia. We made a mini open skin incisions above the pedicles of T10, T11, L1, L2, and L3 bilaterally. We then placed pedicle screws in standard fashion with the aid of fluoroscopy and anatomic landmarks. Briefly a starter awl was used. A gearshift was subsequently used to enter the commercial airplane pilot hole via a transpedicular route into the vertebral body. The commercial airplane pilot hole was tapped with an undersized instrument, and subsequently 5.5 x 40 mm pedicle screws were placed bilaterally at T10 and T11 and L1, and 6.5 x 40 mm pedicle screws were placed bilaterally at L2 and L3 levels. The screws were tested with the aid of the neurologic monitoring staff via pedicle screw stimulation. All reading suggested there was no significant cortical wall breech. The screws were also evaluated fluoro- graphically and appeared to be in satisfactory position. We then turned our attention to the decompression portion of the procedure. We made an incision in the midline over the T12-L1 region. We exposed the supraspinous and interspinous ligament as well as the T12 lamina. The ligaments were removed as well as the ligamentum flavum and we did a partial T12 laminectomy. We marked the area of the laminectomy with ball-tipped probes and did a lateral fluorograph to document the decompression. After the decompression the foramen and traversing roots at this level T12-L1 level were found to be free and patent. Autograft bone obtained from the decompression was placed and a sterile container for later use. We then decorticated the facets at T10-T11, T11-12, T12-L1, L1-L2, and L2-L3 and then placed autograft bone mixed with cortical cancellous chips ([employer]os[employer]) outside the facet joints in these T10-L3 levels to aid in the posterior fusion. We then copiously irrigated the wound. We then placed 16 cm rods within the screw heads of the involved T10-L3 levels and locked and finally tightened the construct in stand candelaria fashion. We then closed the wound in layers with 1 Vicryl for the fascia, 2-0 Vicryl.for the subcutaneous tissue, and Dermabond was used for skin closure. Sterile dressings were placed over the wound. The patient was turned supine on a hospital bed and extubated. All sponge instruments and needle counts were correct at the end of the procedure. The patient tolerated the procedure well Anesthesia: VIRGINIE Surgeon: Stef Skaggs Jr Was there an commercial escrow assistant present: No Estimated blood loss (cc): 200 Specimen: none Condition: stable Disposition: PACU
[2018-12-19] MEDS: *HR* HYDROmorphone (PF) 1 MG/ML SYRINGE IVP PRN ×3 (17:01→17:26)
--- NOTE | 2018-12-19 17:19 | Anesthesia Evaluation Post Op ---
Date of Encounter: 12/19/18 Time of Encounter: 17:19 - Vital Signs Vital Signs: Last Vital Signs Temp 98.7 F 12/19/18 16:52 Pulse 93 12/19/18 17:12 Resp 14 12/19/18 17:12 BP 150/74 12/19/18 17:12 Pulse Ox 96 12/19/18 17:12 - Lungs Lungs: Clear Ascult./Percussion - Airway Airway: Non-obstructed - Cardiovascular Regular Rate - Mental Status Mental Status: Alert & Oriented, Answers Appropriately - Pain Pain Scale: 4 - Nausea Vomiting Nausea Vomiting: Not Present - Hydration Hydration: Ice chips - Discharge PostOp Status: Transfer Patient to floor
[2018-12-19] MEDS ORDERED: Naloxone 0.4 MG/ML INJ IVP PRN (18:00)
[2018-12-19] MEDS ORDERED: Ondansetron 4 MG/2 ML VIAL IVP PRN (18:00)
[2018-12-19] MEDS: Ringers Solution, Lactated 1,000 ML IVC SCH (19:08)
[2018-12-19] MEDS ORDERED: D5% in Water 1,000 ML IVC PRN (19:48)
[2018-12-19] MEDS: Acetaminophen 325 MG TABLET PO PRN (23:04)
[2018-12-20] MEDS: traMADol 50 MG TABLET PO PRN ×2 (00:08→09:12)
[2018-12-20] MEDS ORDERED: Insulin DETEMIR 100 UNIT/ML X5UNITS SQ ONE (00:30)
[2018-12-20] MEDS: *HR* OxyCODONE Immed Rel 5 MG TABLET PO PRN ×3 (01:36→12:06)
--- NOTE | 2018-12-20 03:02 | Event Note ---
Date of Encounter: 12/20/18 Time of Encounter: 02:47 Alerted by pts. nurse that the pt. had a Cummins catheter in place w/nurse-driven order to remove in a.m. Pt. was just recently discharged from [facility] and in reviewing her chart I found she has a hx of urinary retention and was recently discharged w/Cummins d/t this condition. Cummins order revised to Remove with Provider order and Do Not Remove order placed d/t pts. urinary retention. Strict I&O ordered as well to monitor output. Nurse instructed to monitor pt. and input/output closely and alert me immediately of any adverse changes.
[2018-12-20 04:33] LABS: Basophils % 0.2 %; Eosinophils % 0.1 %; Hematocrit 29.6 % (35.3-44.9); Immature Granulocytes % 0.5 % (0-4); Lymphocytes # 1.5 K/mcL (0.6-4.6); Lymphocytes % 13.3 %; Mean Corpuscular HGB Conc 31.8 g/dL (31.6-35.5); Mean Corpuscular Hemoglobin 30.3 pg (28.0-33.3); Mean Corpuscular Volume 95.5 fL (83.0-100.0); Mean Platelet Volume 10.1 fL (9.4-12.4); Neutrophils # 8.8 K/mcL (1.6-8.9); Platelet Count 225 K/mcL (140-400); Red Cell Distribution Width 13.9 % (11.5-14.5); Segmented Neutrophils % 76.9 %
[2018-12-20 04:36] LABS: Hemoglobin 9.4 g/dL (11.5-15.4); White Blood Count 11.4 K/mcL (4.3-11.1)
[2018-12-20 04:50] LABS: Calcium 8.5 mg/dL (8.6-10.3); Potassium 4.2 mEq/L (3.5-5.1)
[2018-12-20] MEDS: Acetaminophen 325 MG TABLET PO PRN (05:14)
--- NOTE | 2018-12-20 08:49 | Orthopedics Progress Note ---
Date of Encounter: 12/20/18 Time of Encounter: 12:15 - Assessment and Plan (1) Status post lumbar spinal fusion Current Visit: Yes Status: Acute (2) Burst fracture of T12 vertebra Current Visit: Yes Status: Acute (3) Compression fracture Current Visit: Yes Status: Acute Subjective Principal diagnosis: Burst fracture T12, compression fractures L1-L2 Interval history: POD#1 s/p Instrumented posterior spinal fusion T10-L3 [Unstable burst fracture T12, vertebral compression fractures L1 and L2] 12/19/[address] Skaggs. Patient supine in bed, moaning in pain - states having pain in her back. Patient requires frequent redirection to initiate verbalization of her concerns. She is afebrile vital signs are stable. Dressing is clean dry and intact. Neurovascularly intact with regard to bilateral lower extremities. Fires all upper and lower extremity motor groups. Patient appears to have poorly controlled postoperative pain We will trial Lidoderm patch to patient's back and encouraged continued mobilization with therapy Continue analgesics Brace with all ambulatory activity Avoid bending/twisting at waist (belly button) No lifting greater than 10lbs Dr. Skaggs notified of patient's condition. Discharge planning - per nursing staff patient is a return to the facility where she resides; anticipate orthopedic clearance for discharge on POD#3. Objective Vital signs: Vital Signs Temp Pulse Resp BP Pulse Ox 12/20/18 07:02 98.8 F 104 18 143/74 92 12/20/18 02:26 98.6 F 104 18 135/73 96 12/19/18 22:46 98.3 F 105 20 161/69 97 12/19/18 21:18 99.2 F 103 16 113/69 96 12/19/18 20:02 99.4 F 100 16 133/74 94 12/19/18 19:10 97.5 F L 95 15 121/78 91 12/19/18 18:30 98.5 F 95 15 117/73 92 12/19/18 18:00 98.5 F 96 15 130/77 93 12/19/18 17:37 98.3 F 96 14 129/72 94 12/19/18 17:22 98.0 F 96 16 130/75 96 12/19/18 17:12 93 14 150/74 96 12/19/18 17:02 93 18 149/79 95 12/19/18 16:52 98.7 F 91 20 146/79 96 12/19/18 16:42 87 22 138/74 100 12/19/18 16:32 84 18 132/72 100 12/19/18 16:22 97.1 F L 80 20 130/68 100 12/19/18 11:15 95 126/71 99 12/19/18 11:09 94 140/72 100 Intake and Output 12/19/18 12/20/18 12/20/18 23:59 07:59 15:59 Intake Total 250 / 350 350 / 350 Output Total 275 / 925 150 / 150 Balance -25 / -575 200 / 200 Intake: IV Fluids 100 / 200 Ancef 2,000 MG In 0.9 % Sodium 100 / 100 Chloride 100 ML @ 200 mls/hr IVPB Q8H [facility] Rx#:[id number] Oral 150 / 150 350 / 350 Output: Catheter 275 / 275 150 / 150 Other: Weight 115.68 kg Blood Glucose* 206 163 Patient Weight 12/20/18 23:59 Weight 115.68 kg - Labs CBC & BMP: 12/21/18 00:59 12/21/18 00:59 Labs: Abnormal lab results WBC 11.4 K/mcL (4.3-11.1) H D 12/20/18 04:05 RBC 3.10 M/mcL (3.82-4.97) L 12/20/18 04:05 Hgb 9.4 g/dL (11.5-15.4) L D 12/20/18 04:05 Hct 29.6 % (35.3-44.9) L 12/20/18 04:05 MCHC 30.7 g/dL (31.6-35.5) L 12/19/18 06:13 RDW 14.6 % (11.5-14.5) H 12/19/18 06:13 ESR 56 mm/hr (0-15) H 12/16/18 18:21 ABG pO2 220 mmHg (85-104) H 12/19/18 14:24 ABG O2 Saturation 100 % (95-98) H 12/19/18 14:24 ABG Base Excess -4 mEq/L (-2 to 3) L 12/19/18 14:24 Glucose 220 mg/dL (60-95) H 12/19/18 14:24 Sodium 135 mEq/L (136-145) L 12/20/18 04:05 BUN 28 mg/dL (8-23) H 12/16/18 18:21 Est GFR ( Amer) 58 (> 60) L 12/20/18 04:05 Est GFR (Non-Af Amer) 48 (> 60) L 12/20/18 04:05 Glucose 192 mg/dL (70-105) H 12/20/18 04:05 POC Glucose 163 mg/dL (70-99) H 12/20/18 07:02 301 (280-300) H 12/16/18 18:21 Calcium 8.5 mg/dL (8.6-10.3) L 12/20/18 04:05 366 Units/L (34-104) H 12/16/18 18:21 21 mg/L (Less than 10) H 12/16/18 18:21 1.02 mmol/L (1.15-1.35) L 12/19/18 14:24 30 mg/dL (Neg-Trace) H 12/19/18 09:10 >=1000 mg/dL (Normal) H 12/19/18 09:10 40 mg/dL (Negative) H 12/19/18 09:10 Small (Negative) H 12/19/18 09:10 Moderate (Negative) H 12/19/18 09:10 Ur Leukocyte Esterase Large (Negative) H 12/19/18 09:10 TNTC per hpf (0-3) H 12/19/18 09:10 Ur Squamous Epith Cells Many per lpf (None-Few) H 12/19/18 09:10 Moderate per hpf (None-Few) H 12/19/18 09:10 Many per hpf (None Seen) H 12/19/18 09:10 Ur Culture Indicated? YES (NO) A 12/19/18 09:10 Consult Discharge Plan - Plan Referrals: Alex Steward MD [Primary Care Provider] -
[2018-12-20] MEDS ORDERED: *HR* Pioglitazone 30 MG TABLET PO SCH (09:00)
[2018-12-20] MEDS ORDERED: *HR* Glimepiride 2 MG TABLET PO SCH (09:00)
[2018-12-20] MEDS: MOM Conc 10 ML UD.LIQ GTUBE SCH (09:30)
[2018-12-20] MEDS: Ertapenem 1,000 MG in 0.9 % Sodium Chloride Mini Bag 100 ML IVPB SCH (09:32)
[2018-12-20] MEDS: Insulin LISPRO 300 UNITS/3 ML VIAL SQ SCH ×6 (09:37→20:12)
--- NOTE | 2018-12-20 11:08 | Internal Med Progress Note ---
Hospitalist Progress Note - Encounter Date of Encounter: 12/20/18 Time of Encounter: 10:00 - Subjective Interval History: Underwent posterior spinal fusion T10-L3 yesterday. Currently denies any significant pain over the op site but continues to complain of suprapubic discomfort. No fever overnight. - Exam Vitals: Temp Pulse Resp BP Pulse Ox 98.8 F 104 18 143/74 92 12/20/18 07:02 12/20/18 07:02 12/20/18 07:02 12/20/18 07:02 12/20/18 07:02 Exam: Vitals: Reviewed General: Obese white woman sitting up in chair Chest: Normal thoracic expansion. Normal breath sounds. Clear to auscultation. Heart: Normal S1 & S2; rhythmic. No rubs or murmurs. Abdomen: Non-distended, soft. Mild suprapubic tenderness. No rebound/guarding/rigidity : No CVA tenderness MSK: Back dressing c/d/i Neurological: grossly non-focal - Assessment and Plan (1) Burst fracture of T12 vertebra Current Visit: Yes Status: Acute Assessment and Plan: following an episode of fall underwent posterior fusion T10-L3 on 12/19, POD#1 follow with orthopedics (2) Postoperative anemia due to acute blood loss Current Visit: Yes Status: Acute Assessment and Plan: Hemoglobin dropped from 11.9-9.4 in the post-op setting continue to monitor, transfuse if < 7 (3) Rib fracture Current Visit: Yes Status: Acute Assessment and Plan: also a sequelae of mechanical fall conservative mx (4) UTI due to extended-spectrum beta lactamase (ESBL) producing Escherichia coli Current Visit: Yes Status: Acute Assessment and Plan: recently admitted for sepsis due to ESBL E. coli and treated with IV Invanz for a total of 7 days (discharged on 12/10 to [facility] with 5 more days which she should have completed on 12/15) she again complains of suprapubic discomfort with CT showing diffuse bladder wall thickening as well as analysis positive for LE and moderate amount of bacteria No evidence of pyelonephritis IV Invanz restarted on 12/19, will consult ID today as well (5) Pre-op evaluation Current Visit: Yes Status: Acute (6) CKD (chronic kidney disease) stage 3, GFR 30-59 ml/min Current Visit: No Status: Chronic Assessment and Plan: Cr at baseline Avoid nephrotoxins (7) COPD (chronic obstructive pulmonary disease) Current Visit: No Status: Chronic Assessment and Plan: not in exacerbation PRN albuterol (8) Diabetes mellitus Current Visit: No Status: Chronic Assessment and Plan: Continue basal bolus insulin (9) Hypothyroid Current Visit: No Status: Chronic Assessment and Plan: Resume home meds (10) Constipation Current Visit: Yes Status: Acute Assessment and Plan: Initial CT scan was reported as rectosigmoid fecal impaction Since admission, pt continues to adequate BM. Repeat CT scan on 12/18 confirms resolution of fecal impaction continue bowel regimen Last colonoscopy on 11/2015 unremarkable. For outpt colonoscopy DVT Prophylaxis: SQ heparin - Time Spent with Patient Total time spent is greater than 50% in coordination of care (as documented) at patient's floor/unit and/or counseling patient: 25 - 35 minutes Plan of Care Discussed with: patient Internal Medicine: Result - Labs CBC & Chem 7: 12/20/18 04:05 12/20/18 04:05 Labs: Short CBC 12/20/18 Range/Units 04:05 WBC 11.4 H D (4.3-11.1) K/mcL Hgb 9.4 L D (11.5-15.4) g/dL Hct 29.6 L (35.3-44.9) % Plt Count 225 (140-400) K/mcL Neutrophils # 8.8 (1.6-8.9) K/mcL BMP 12/20/18 04:05 Sodium 135 L Potassium 4.2 Chloride 103 Carbon Dioxide 28 BUN 17 Creatinine 1.12 Glucose 192 H Calcium 8.5 L - ABG Interpretation ABG results: ABG ABG pH 7.37 pH Units (7.32-7.45) 12/19/18 14:24 ABG pCO2 37 mmHg (35-45) 12/19/18 14:24 ABG pO2 220 mmHg (85-104) H 12/19/18 14:24 ABG O2 Saturation 100 % (95-98) H 12/19/18 14:24 PT/INR, D-dimer PT 11.6 Seconds (9.4-12.1) 12/19/18 06:13 - Impressions Impressions Fluoroscopy 12/19/18 00:00 IMPRESSION: Intraprocedural fluoroscopic spot images as above. See separate procedure report for more information. D/ / Nazanin Hernandez MD / Nazanin Hernandez MD Interpreting Provider: Nazanin Hernandez MD Lumbar Spine X-Ray 12/19/18 00:00 IMPRESSION: Intraprocedural fluoroscopic spot images as above. See separate procedure report for more information. D/ / Nazanin Hernandez MD / Nazanin Hernandez MD Interpreting Provider: Nazanin Hernandez MD Consult Discharge Plan - Plan Referrals: Alex Steward MD [Primary Care Provider] - (3) Rib fracture Qualifiers: Encounter type: subsequent encounter Rib fracture type: multiple ribs Fracture type: closed Laterality: unspecified laterality Fracture healing: with routine healing Qualified Code(s): S22.49XD - Multiple fractures of ribs, unspecified side, subsequent encounter for fracture with routine healing (7) COPD (chronic obstructive pulmonary disease) Qualifiers: Emphysema type: unspecified Qualified Code(s): J43.9 - Emphysema, unspecified (8) Diabetes mellitus Qualifiers: Diabetes mellitus type: type 2 Diabetes mellitus 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 Diabetes mellitus complication status: with kidney complications Diabetes mellitus complication detail: with chronic kidney disease Chronic kidney disease stage: stage 3 (moderate) Qualified Code(s): E11.22 - Type 2 diabetes mellitus with diabetic chronic kidney disease; N18.3 - Chronic kidney disease, stage 3 (moderate); Z79.4 - USP (current) use of insulin (9) Hypothyroid Qualifiers: Hypothyroidism type: unspecified Qualified Code(s): E03.9 - Hypothyroidism, unspecified (10) Constipation Qualifiers: Constipation type: unspecified constipation type Qualified Code(s): K59.00 - Constipation, unspecified
[2018-12-20] MEDS: ARIPiprazole 10 MG TABLET PO SCH (11:49)
--- NOTE | 2018-12-20 12:19 | Infectious Disease Consult ---
Infectious Disease-Consult - Encounter Date/Time Date of Encounter: 12/20/18 Time of Encounter: 12:11 - Data of Consult Patient: known to practice within the last 3 years Reason for consult: UTI Consult date: 12/20/18 Requesting Physician: Jono Castellanos MD Primary Care Provider: Alex Steward MD - [facility] HPI: Ms. 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 The patient was admitted to the hospital 12/16/18 for compression fractures of the lumbar thoracic spine and rib fractures. We are consulted 12/20/18 for further workup and treatment recommendations for urinary tract infection. Briefly, the patient to 68-year-old female with past medical history as stated above. The patient is known to the infectious disease service as we saw her as an outpatient back on December 07 as a new referral for a multidrug resistant UTI. The patient had been seen in the emergency department for tachycardia was diagnosed with urinary tract infection. She was discharged on oral Keflex, but her culture grew Escherichia coli that is multidrug resistant. She saw urology who subsequently referred her to our office. When she was evaluated in the office, she is to be tachycardic, confused, and overall just did not feel well so we advised them to go to the ER. She was hospitalized from 12/07 through 12/10. Urine culture was positive for Escherichia coli multidrug resistant. She was treated with 7 days of IV ertapenem and her symptoms improved. 3 days prior to admission, she fell at the [facility]. She was seen by orthopedics as an outpatient had a shoulder x-ray that was negative, but she had worsening pain so she was referred to the ER. Upon arrival, she was afebrile hemodynamically stable. WBC was normal. ESR was mildly elevated at 56 with CRP of 21. CT of the chest showed trace bilateral pleural effusions with edema versus atelectasis. CT of the head was negative. CT of the cervical spine was negative. CT of the thoracic spine showed an unstable compression fracture at T12 and subacute right-sided rib fractures. Lumbar spine CT showed compression fractures at L1- L2 and findings concerning for proctitis versus colitis. She then had a CT of the abdomen and pelvis that showed fecal impaction with findings concerning for stercoral colitis. Orthospine was consulted who recommended an MRI. The patient was admitted to the hospital for further evaluation and treatment. Since admission, the patient has remained hemodynamically stable. She did spike a low-grade temp of 100.2 on 12/18. She was started on a bowel regimen for the fecal impaction and start oral colitis. Repeat CT of the abdomen and pelvis shows that this has resolved, but did show bladder wall thickening consistent with cystitis. undergone an MRI of the thoracic and lumbar spine that revealed acute to subacute compression fractures as well as a foci of low signal intensity involving the vertebral body at T12 corresponding to gas noted on the CT scan. Similar findings can be seen with emphysematous osteomyelitis and if there is concern for osteomyelitis/discitis, postcontrast imaging could be beneficial. There is findings suggestive of posterior ligament complex injury as well as mild multilevel degenerative spondylosis involving the thoracic and lumbar spine. She was taken to the operating room 12/19/18 where she underwent instrumented posterior spinal fusion of T10-L3 by Dr. Skaggs area Intra-Op, she was noted to have dislodgment of her chronic Osorio was changed. The patient complained of some suprapubic pain so urinalysis was checked and was positive for pyuria. Urine cultures pending. Today, her WBC is mildly elevated at 11.4. She was started on Invanz this morning. We have been asked to evaluate and make further recommendations. During my exam today, the patient's altered mental status precludes her ability to provide me with any information regarding the events leading to her hospitalization. Review of systems limited, but the patient does localize pain to the middle of her chest. She is unable to tell me if it was reproducible or radiates anywhere. - ROS Review of Systems: All systems reviewed and no additional remarkable complaints except as stated. - Results CBC & Chem 7: 12/20/18 04:05 12/20/18 04:05 - Exam Vitals: Temp Pulse Resp BP Pulse Ox 98.4 F 104 16 117/73 92 12/20/18 11:53 12/20/18 11:53 12/20/18 11:53 12/20/18 11:53 12/20/18 11:53 Exam: Head: Atraumatic, normal inspection, normocephalic. Eye: EOMI, PERRLA, no scleral icterus noted. ENT: Mucous membranes moist. No odontogenic infection noted. Neck: Normal inspection, no meningismus. Respiratory: Clear to auscultation. No rales, respiratory distress, rhonchi, or wheezes noted. Cardiovascular: Regular rate and rhythm, tachycardic. S1 and S2 audible. No murmurs, rubs, or gallops. GI: Soft, nondistended, normal bowel sounds. Extremities:No joint swelling, pedal edema, or tenderness noted. Back: Normal inspection. Post-op dressing C/D/I. Neurological: Alert, oriented 2. ZARAGOZA x 4. Grasps equal bilaterally. Unable to assess BLE strength due to patient mentation. Psychiatric: normal affect, normal mood. Skin: Dry, intact, warm. Normal color. No rashes. Albuterol Sulfate [Ventolin Hfa] 2 puff IH Q4H PRN 07/22/17 [History] Levothyroxine Sodium [Synthroid] 137 mcg PO DAILY 07/22/17 [History] Simvastatin [Zocor] 40 mg PO HS 07/22/17 [History] Ipratropium/Albuterol Neb [Duoneb] 3 ml IH Q6HR PRN 04/05/18 [History] Famotidine [Pepcid] 40 mg PO DAILY 06/14/18 [History] Pioglitazone HCl 30 mg PO DAILY 06/14/18 [History] Venlafaxine HCl [Venlafaxine HCl ER] 150 mg PO DAILY 06/14/18 [History] Benztropine Mesylate 0.5 mg PO DAILY 09/24/18 [History] Lidocaine [Lidoderm] 1 patch TP DAILY 11/23/18 [History] Melatonin 5 mg PO HS 11/23/18 [History] Multivitamin with Minerals [One-A-Day Maximum Formula] 1 tab PO DAILY 11/23/18 [History] Insulin LISPRO [HumaLOG] 0 units SQ TIDWM 12/07/18 [History] Acetaminophen [Tylenol] 1,000 mg PO TID PRN 12/09/18 [History] Aripiprazole [Abilify] 15 mg PO DAILY 12/09/18 [History] Glimepiride [Amaryl] 1 mg PO DAILY 12/09/18 [History] MOM Conc [MILK OF MAGNESIA conc] 30 ml GTUBE DAILY 12/09/18 [History] Methyl Salicylate/Menth/Camph [Bengay Ultra Strength Cream] 1 appl TP AD 12/09/18 [History] Nicotine Patch [Nicoderm] 14 mg TP DAILY 12/09/18 [History] Quetiapine Fumarate [Seroquel] 25 mg PO DAILY 12/09/18 [History] Gabapentin [Neurontin] 400 mg PO TID #12 capsule 12/10/18 [Rx] Insulin Degludec [Tresiba Flextouch U-100] 20 unit SQ DAILY 30 Days insuln.pen 12/10/18 [Rx] Ertapenem [INVanz] 1,000 mg IVPB DAILY 12/16/18 [History] Tramadol HCl [Ultram] 50 mg PO Q4H PRN 12/16/18 [History] Allergy/AdvReac Type Severity Reaction Status Date / Time prednisone AdvReac See Verified 12/09/18 11:24 Comments - Assessment and Plan (1) Leukocytosis Current Visit: Yes Status: Acute WBC mildly elevated at 11.4. Likely reactive from surgery. Continue to trend. Qualifiers: Leukocytosis type: unspecified Qualified Code(s): D72.829 - Elevated white blood cell count, unspecified SNOMED Code(s): 269481011, 403838909 (2) UTI due to extended-spectrum beta lactamase (ESBL) producing Escherichia coli Current Visit: Yes Status: Acute Urine cultures have been positive for E. coli MDRO dating back to 10/21/18. Treated with 7 days of IV Ertapenem. Colonization vs. true infection. 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 No evidence of pyelonephritis clinically or on CT scan. Urine culture pending. Currently on Ertapenem (day 1). SNOMED Code(s): 293017038 (3) Burst fracture of T12 vertebra Current Visit: Yes Status: Acute Status post fall. Ortho-spine consulted. Per radiologist, MRI showed a foci of low-intensity signal in the vertebral body of T12 that corresponds with gas noted on CT, but I do not note any gas on the CT reports. Status post instrumented posterior spinal fusion T10-L3 12/19/[address] Skaggs. SNOMED Code(s): 400088269 (4) Compression fracture Current Visit: Yes Status: Acute Location: T12, L1, L2. Secondary to fall. Management per the primary and ortho-spine teams. SNOMED Code(s): 152237749 (5) Rib fracture Current Visit: Yes Status: Acute Status post fall. Management per the primary team. Qualifiers: Encounter type: subsequent encounter Rib fracture type: multiple ribs Fracture type: closed Laterality: unspecified laterality Fracture healing: with routine healing Qualified Code(s): S22.49XD - Multiple fractures of ribs, unspecified side, subsequent encounter for fracture with routine healing SNOMED Code(s): 03228723 (6) Hypothyroid Current Visit: No Status: Chronic Qualifiers: Hypothyroidism type: unspecified Qualified Code(s): E03.9 - Hypothyroidism, unspecified SNOMED Code(s): 67543272 (7) HLD (hyperlipidemia) Current Visit: No Status: Chronic Qualifiers: Hyperlipidemia type: unspecified Qualified Code(s): E78.5 - Hyperlipidemia, unspecified SNOMED Code(s): 76067880 (8) Diabetes mellitus Current Visit: No Status: Chronic Recommend aggressive glucose monitoring and control. Management per the primary team. 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 Avoid nephrotoxins as able. SNOMED Code(s): 160655344 (10) Obesity Current Visit: No Status: Chronic Qualifiers: Obesity type: unspecified obesity type Body mass index: unspecified BMI SNOMED Code(s): 541436135, 307734930 (11) COPD (chronic obstructive pulmonary disease) Current Visit: No Status: Chronic Qualifiers: Emphysema type: unspecified Qualified Code(s): J43.9 - Emphysema, unspecified SNOMED Code(s): 13244618 (12) Chest pain Current Visit: Yes Status: Acute Etiology unclear. Patient unable to provide any information other than she is having chest pain. MSK vs. cardiac? Nursing made aware to notify the hospitalist. EKG being obtained. SNOMED Code(s): 60363781 - Recommendations Recommendations: Await urine culture to finalize. Post-op wound care and activity per the ortho-spine team. Chest pain workup and management per the primary team. Continue ertapenem 1 gram IV daily. Duration of treatment depends on the clinical picture. Monitor renal function and dose-adjust antibiotics. Past Med Surg Social Fam HX - Past Medical History Source: old records reviewed, nursing notes reviewed Medical history: arthritis, COPD, dementia, diabetes, GERD, hyperlipidemia, hypertension, renal disease, thyroid disease Additional medical history: kidney failure. urinary retention Psychiatric history: anxiety, bipolar, depression, PTSD - Past Surgical History Surgical History: appendectomy, cholecystectomy, hysterectomy, other Additional surgical history: ORIF RT ARM - Social History Smoking Status: Former smoker Smokeless Tobacco Status: No Alcohol use: none Drug use: marijuana Occupational status: retired Current living situation: [facility] Activity Level: Uses cane/walker Recent Out of Country Travel Within the Last 8 Weeks: No Exposure or Possible Exposure to Illness During Travel: No - Family History Father Hx Family Respiratory Disorders: Yes (lung cancer, smoker) Hx Family Cancer: Yes (lung cancer) Consult Discharge Plan - Plan Referrals: Alex Steward MD [Primary Care Provider] - - Attending Attestation I have personally performed a face to face evaluation on this patient. I have reviewed and agree with the care plan. History and Exam by me shows: Assessment and plan: Status post fall with fractures of T12 vertebra status post T103 instrumental posterior spinal fusion Chest pain reproducible on physical exam EKG unimpressive Her tract infection due to Escherichia coli ESBL Recommendations Await urine culture to finalize. Post-op wound care and activity per the ortho-spine team. Chest pain workup and management per the primary team. Continue ertapenem 1 gram IV daily. Duration of treatment depends on the clinical picture. Monitor renal function and dose-adjust antibiotics.
[2018-12-20] MEDS ORDERED: Nitroglycerin 0.4 MG TAB.SUBL SL PRN (13:04)
--- NOTE | 2018-12-20 14:38 | Electrocardiograph Report ---
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
[2018-12-20] MEDS ORDERED: Aspirin 325 MG TABLET PO ONE (15:00)
[2018-12-20] MEDS: Gabapentin 400 MG CAPSULE PO SCH ×3 (15:08→20:28)
[2018-12-20] MEDS: *HR* Heparin 5,000 UNIT/ML VIAL SQ SCH ×2 (18:09→19:36)
[2018-12-20] MEDS ORDERED: Perflutren Lipid Microsphere 1.3 ML in 0.9 % Sodium Chloride 8.7 ML IVP ONE (18:58)
[2018-12-20] MEDS: Ringers Solution, Lactated 1,000 ML IVC SCH (19:36)
[2018-12-20] MEDS: Melatonin 3 MG TABLET PO SCH (20:28)
[2018-12-20] MEDS: Sennosides/Docusate Sodium TABLET PO SCH (20:29)
[2018-12-21] MEDS: *HR* OxyCODONE Immed Rel 5 MG TABLET PO PRN ×3 (01:18→16:08)
[2018-12-21 01:32] LABS: Basophils % 0.2 %; Eosinophils # 0.1 K/mcL (0.0-0.6); Eosinophils % 1.1 %; Hematocrit 29.9 % (35.3-44.9); Hemoglobin 9.3 g/dL (11.5-15.4); Immature Granulocytes % 0.6 % (0-4); Lymphocytes # 1.6 K/mcL (0.6-4.6); Lymphocytes % 13.3 %; Mean Corpuscular HGB Conc 31.1 g/dL (31.6-35.5); Mean Corpuscular Hemoglobin 30.4 pg (28.0-33.3); Mean Corpuscular Volume 97.7 fL (83.0-100.0); Monocytes # 1.3 K/mcL (0.0-1.3); Monocytes % 10.9 %; Neutrophils # 8.9 K/mcL (1.6-8.9); Platelet Count 222 K/mcL (140-400); Red Blood Count 3.06 M/mcL (3.82-4.97); Red Cell Distribution Width 14.4 % (11.5-14.5); Segmented Neutrophils % 73.9 %; White Blood Count 12.1 K/mcL (4.3-11.1)
[2018-12-21 01:52] LABS: BUN/Creatinine Ratio 15 (6-26); Blood Urea Nitrogen 16 mg/dL (8-23); Calcium 8.8 mg/dL (8.6-10.3); Carbon Dioxide 29 mEq/L (23-29); Chloride 101 mEq/L (98-107); Glucose 158 mg/dL (70-105); Osmolality,Calculated 286 (280-300); Potassium 4.6 mEq/L (3.5-5.1); Sodium 136 mEq/L (136-145); eGFR For African Americans > 60 (> 60); eGFR For Non-African Americans 51 (> 60)
[2018-12-21] MEDS: *HR* Heparin 5,000 UNIT/ML VIAL SQ SCH ×2 (05:38→18:23)
[2018-12-21] MEDS: Famotidine 20 MG TABLET PO SCH (07:59)
[2018-12-21] MEDS: Insulin LISPRO 300 UNITS/3 ML VIAL SQ SCH ×4 (07:59→22:43)
[2018-12-21] MEDS: Insulin DETEMIR 100 UNIT/ML X5UNITS SQ SCH (07:59)
[2018-12-21] MEDS: ARIPiprazole 10 MG TABLET PO SCH (08:00)
[2018-12-21] MEDS: Gabapentin 400 MG CAPSULE PO SCH ×3 (08:00→22:42)
[2018-12-21] MEDS: Sennosides/Docusate Sodium TABLET PO SCH ×2 (08:01→22:42)
[2018-12-21] MEDS: Ertapenem 1,000 MG in 0.9 % Sodium Chloride Mini Bag 100 ML IVPB SCH (08:01)
[2018-12-21] MEDS: MOM Conc 10 ML UD.LIQ GTUBE SCH (08:01)
[2018-12-21] MEDS: Venlafaxine XR (24 HR) 75 MG CAP.ER.24H PO SCH (09:25)
--- NOTE | 2018-12-21 11:32 | Infectious Disease Progress No ---
ID Progress Note Date of Encounter: 12/21/18 Time of Encounter: 11:10 - Subjective Subjective: Patient seen and examined. No acute events noted overnight. Patient remains with AMS, but per nursing the patient's son states this is her baseline. The patient does have moments of lucidity and converses, but otherwise just moans. She does not answer ROS questions. She does follow some commands. - Objective CBC & Chem 7: 12/21/18 00:59 12/21/18 00:59 - Exam Vitals: Temp Pulse Resp BP Pulse Ox 98.5 F 97 16 114/66 93 12/21/18 07:34 12/21/18 07:34 12/21/18 07:34 12/21/18 07:34 12/21/18 07:34 Exam: Head: Atraumatic, normal inspection, normocephalic. Eye: EOMI, PERRLA, no scleral icterus noted. ENT: Mucous membranes dry. No odontogenic infection noted. Neck: Normal inspection, no meningismus. Respiratory: Clear to auscultation. No rales, respiratory distress, rhonchi, or wheezes noted. Cardiovascular: Regular rate and rhythm. S1 and S2 audible. No murmurs, rubs, or gallops. GI: Soft, nondistended, normal bowel sounds. Generalized tenderness noted on exam. Osorio catheter noted to be draining clear yellow urine. Extremities: No joint swelling, pedal edema, or tenderness noted. Back: Normal inspection. Post-op dressing C/D/I. Neurological: Alert, does not answer questions so unable to assess orientation. ZARAGOZA x 4 spontaneously. Psychiatric: Agitated. Skin: Dry, intact, warm. Normal color. No rashes. - Assessment and Plan (1) Leukocytosis Current Visit: Yes Status: Acute WBC mildly elevated at 12 this morning. Likely reactive from surgery. Continue to trend. Qualifiers: Leukocytosis type: unspecified Qualified Code(s): D72.829 - Elevated white blood cell count, unspecified SNOMED Code(s): 830767043, 275459665 (2) UTI due to extended-spectrum beta lactamase (ESBL) producing Escherichia coli Current Visit: Yes Status: Acute Urine cultures have been positive for E. coli MDRO dating back to 10/21/18. Treated with 7 days of IV Ertapenem. Colonization vs. true infection. 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 No evidence of pyelonephritis clinically or on CT scan. Urine culture positive for grossly mixed dyan. Currently on Ertapenem (day 2). SNOMED Code(s): 479331262 (3) Burst fracture of T12 vertebra Current Visit: Yes Status: Acute Status post fall. Ortho-spine consulted. Per radiologist, MRI showed a foci of low-intensity signal in the vertebral body of T12 that corresponds with gas noted on CT, but I do not note any gas on the CT reports. Status post instrumented posterior spinal fusion T10-L3 12/19/[address] Skaggs. Post-op xray pending. SNOMED Code(s): 780683325 (4) Compression fracture Current Visit: Yes Status: Acute Location: T12, L1, L2. Secondary to fall. Management per the primary and ortho-spine teams. SNOMED Code(s): 970860438 (5) Rib fracture Current Visit: Yes Status: Acute Status post fall. Management per the primary team. Qualifiers: Encounter type: subsequent encounter Rib fracture type: multiple ribs Fracture type: closed Laterality: unspecified laterality Fracture healing: with routine healing Qualified Code(s): S22.49XD - Multiple fractures of ribs, unspecified side, subsequent encounter for fracture with routine healing SNOMED Code(s): 36042756 (6) Hypothyroid Current Visit: No Status: Chronic Qualifiers: Hypothyroidism type: unspecified Qualified Code(s): E03.9 - Hypothyroidism, unspecified SNOMED Code(s): 19275767 (7) HLD (hyperlipidemia) Current Visit: No Status: Chronic Qualifiers: Hyperlipidemia type: unspecified Qualified Code(s): E78.5 - Hyperlipidemia, unspecified SNOMED Code(s): 24800944 (8) Diabetes mellitus Current Visit: No Status: Chronic Recommend aggressive glucose monitoring and control. Management per the primary team. 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 Avoid nephrotoxins as able. SNOMED Code(s): 300594669 (10) Obesity Current Visit: No Status: Chronic Qualifiers: Obesity type: unspecified obesity type Body mass index: unspecified BMI SNOMED Code(s): 080388095, 304287315 (11) COPD (chronic obstructive pulmonary disease) Current Visit: No Status: Chronic Qualifiers: Emphysema type: unspecified Qualified Code(s): J43.9 - Emphysema, unspecified SNOMED Code(s): 60418604 (12) Chest pain Current Visit: Yes Status: Acute Etiology unclear. Patient unable to provide any information other than she is having chest pain. MSK vs. cardiac? EKG obtained. Troponins mildly elevated. Further workup and management per the primary team. SNOMED Code(s): 31498745 (13) Abdominal pain Current Visit: Yes Status: Acute Etiology: unclear. CT abdomen and pelvis on admission concerning for fecal impaction and stercoral colitis. Repeat CT 12/18 showed resolution of fecal impaction, but showed cystitis. Abdominal exam with diffuse tenderness throughout. Will check LFTs, amylase, and lipase. Urine culture positive for grossly mixed dyan. Qualifiers: Abdominal location: generalized Qualified Code(s): R10.84 - Generalized abdominal pain SNOMED Code(s): 31035084 - Recommendations Recommendations: Post-op wound care and activity per the ortho-spine team. Discontinue Ertapenem. Give one dose of fosfomycin 3 grams now. Duration of treatment depends on the clinical picture. Monitor renal function and dose-adjust antibiotics. Consult Discharge Plan - Plan Referrals: Alex Steward MD [Primary Care Provider] -
[2018-12-21] MEDS: Acetaminophen 325 MG TABLET PO PRN (12:50)
[2018-12-21] MEDS ORDERED: Fosfomycin Tromethamine 3 GM Packet PO ONE (14:45)
--- NOTE | 2018-12-21 18:07 | Orthopedics Progress Note ---
Date of Encounter: 12/21/18 Time of Encounter: 15:30 - Assessment and Plan (1) Status post lumbar spinal fusion Current Visit: Yes Status: Acute (2) Burst fracture of T12 vertebra Current Visit: Yes Status: Acute (3) Compression fracture Current Visit: Yes Status: Acute Subjective Principal diagnosis: Burst fracture T12, compression fractures L1-L2 Interval history: POD#2 s/p Instrumented posterior spinal fusion T10-L3 [Unstable burst fracture T12, vertebral compression fractures L1 and L2] 12/19/[address] Skaggs. Patient supine in bed, moaning in pain with gown pulled off. Patient made aware of being uncovered and assisted in reapplying gown. She continues to states having pain in her back. Patient requires frequent redirection to initiate verbalization of her concerns. Dressing changed at direction of Dr. Skaggs earlier today. Neurovascularly intact with regard to bilateral lower extremities. Fires all upper and lower extremity motor groups. Patient appears to have poorly controlled postoperative pain though I believe her baseline dementia may be complicating ability to accurately assess and control her pain. Lidoderm patch was ordered 12/20 to patient's back and encouraged continued mobilization with therapy Continue analgesics Brace with all ambulatory activity Avoid bending/twisting at waist (belly button) No lifting greater than 10lbs Dr. Skaggs saw patient earlier today. Xrays reviewed by myself and Dr. Skaggs. Report as follows: ORDERING SYSTEM PROVIDED HISTORY: Postoperative Acute abnormality. Initial exam. FINDINGS: The patient has undergone fusion of the thoracolumbar spine between T10 and L3 with intrapedicular screws and vertical rods. Moderate compression fracture of T12 is noted. Mild old compression fracture of L1 also present. Slight spondylolisthesis left L5 on S1. [id number] facet arthropathy in the lower lumbar spine. Clips from prior cholecystectomy noted. XR/XR lumbar spine 2-3V IMPRESSION: Satisfactory appearance of the thoracolumbar spine following fusion presumably for acute fracture. D/ / Migue Ackerman MD / Migue Ackerman MD We will continue to follow while inpatient. It appears patient continues to be worked up for ongoing medical issues. Discharge planning - per nursing staff patient is a return to the facility where she resides; anticipate orthopedic clearance for discharge on POD#3. Objective Vital signs: Vital Signs Temp Pulse Resp BP Pulse Ox 12/21/18 17:16 99.5 F 92 17 131/71 93 12/21/18 12:33 100.7 F H 93 16 133/81 93 12/21/18 07:34 98.5 F 97 16 114/66 93 12/21/18 04:17 99.5 F 89 17 117/58 95 12/20/18 23:35 99.0 F 89 17 118/76 92 12/20/18 20:39 97 12/20/18 18:52 99.1 F 84 16 125/76 97 Intake and Output 12/21/18 12/21/18 12/21/18 07:59 15:59 23:59 Intake Total 50 / 100 50 / 100 Output Total 250 / 650 400 / 650 Balance -250 / -550 -350 / -550 50 / -550 Intake: Oral 50 / 100 50 / 100 Output: Catheter 250 / 650 400 / 650 Other: Blood Glucose* 174 200 139 - Labs CBC & BMP: 12/21/18 00:59 12/21/18 00:59 Labs: Abnormal lab results WBC 12.1 K/mcL (4.3-11.1) H 12/21/18 00:59 RBC 3.06 M/mcL (3.82-4.97) L 12/21/18 00:59 Hgb 9.3 g/dL (11.5-15.4) L 12/21/18 00:59 Hct 29.9 % (35.3-44.9) L 12/21/18 00:59 MCHC 31.1 g/dL (31.6-35.5) L 12/21/18 00:59 RDW 14.6 % (11.5-14.5) H 12/19/18 06:13 ESR 56 mm/hr (0-15) H 12/16/18 18:21 ABG pO2 220 mmHg (85-104) H 12/19/18 14:24 ABG O2 Saturation 100 % (95-98) H 12/19/18 14:24 ABG Base Excess -4 mEq/L (-2 to 3) L 12/19/18 14:24 Glucose 220 mg/dL (60-95) H 12/19/18 14:24 Sodium 135 mEq/L (136-145) L 12/20/18 04:05 BUN 28 mg/dL (8-23) H 12/16/18 18:21 Est GFR ( Amer) 58 (> 60) L 12/20/18 04:05 Est GFR (Non-Af Amer) 51 (> 60) L 12/21/18 00:59 Glucose 158 mg/dL (70-105) H 12/21/18 00:59 POC Glucose 141 mg/dL (70-99) H 12/20/18 20:08 301 (280-300) H 12/16/18 18:21 Calcium 8.5 mg/dL (8.6-10.3) L 12/20/18 04:05 366 Units/L (34-104) H 12/16/18 18:21 0.05 ng/mL (< 0.04) H* 12/21/18 00:59 21 mg/L (Less than 10) H 12/16/18 18:21 1.02 mmol/L (1.15-1.35) L 12/19/18 14:24 30 mg/dL (Neg-Trace) H 12/19/18 09:10 >=1000 mg/dL (Normal) H 12/19/18 09:10 40 mg/dL (Negative) H 12/19/18 09:10 Small (Negative) H 12/19/18 09:10 Moderate (Negative) H 12/19/18 09:10 Ur Leukocyte Esterase Large (Negative) H 12/19/18 09:10 TNTC per hpf (0-3) H 12/19/18 09:10 Ur Squamous Epith Cells Many per lpf (None-Few) H 12/19/18 09:10 Moderate per hpf (None-Few) H 12/19/18 09:10 Many per hpf (None Seen) H 12/19/18 09:10 Ur Culture Indicated? YES (NO) A 12/19/18 09:10 Consult Discharge Plan - Plan Referrals: Alex Steward MD [Primary Care Provider] -
--- NOTE | 2018-12-21 18:54 | Internal Med Progress Note ---
Hospitalist Progress Note - Encounter Date of Encounter: 12/21/18 Time of Encounter: 18:50 - Subjective Interval History: Pt moaning. She has dementia and is a poor historian at baseline. Nurse denies any acute changes. - Exam Vitals: Temp Pulse Resp BP Pulse Ox 99.5 F 92 17 131/71 93 12/21/18 17:16 12/21/18 17:16 12/21/18 17:16 12/21/18 17:16 12/21/18 17:16 Exam: Head: Atraumatic, normal inspection, normocephalic. Eye: EOMI, PERRLA, no scleral icterus noted. ENT: Mucous membranes dry. No odontogenic infection noted. Neck: Normal inspection, no meningismus. Respiratory: Clear to auscultation. No rales, respiratory distress, rhonchi, or wheezes noted. Cardiovascular: Regular rate and rhythm. S1 and S2 audible. No murmurs, rubs, or gallops. GI: Soft, nondistended, normal bowel sounds. Generalized tenderness noted on exam. Cummins catheter noted to be draining clear yellow urine. Extremities: No joint swelling, pedal edema, or tenderness noted. Back: Normal inspection. Post-op dressing C/D/I. Neurological: Alert, does not answer questions so unable to assess orientation. ZARAGOZA x 4 spontaneously. Psychiatric: Agitated. Skin: Dry, intact, warm. Normal color. No rashes. - Assessment and Plan (1) Burst fracture of T12 vertebra Current Visit: Yes Status: Acute Assessment and Plan: following an episode of fall underwent posterior fusion T10-L3 on 12/19, POD#1 follow with orthopedics out pt in 2 weeks following discharge (2) Hypothyroid Current Visit: No Status: Chronic Assessment and Plan: Levothyroxine (3) COPD (chronic obstructive pulmonary disease) Current Visit: No Status: Chronic Assessment and Plan: not in exacerbation PRN albuterol (4) CKD (chronic kidney disease) stage 3, GFR 30-59 ml/min Current Visit: No Status: Chronic Assessment and Plan: Cr at baseline Avoid nephrotoxins (5) Diabetes mellitus Current Visit: No Status: Chronic Assessment and Plan: Continue basal and SS insulin (6) UTI due to extended-spectrum beta lactamase (ESBL) producing Escherichia coli Current Visit: Yes Status: Acute Assessment and Plan: recently admitted for sepsis due to ESBL E. coli and treated with IV Invanz for a total of 7 days (discharged on 12/10 to [facility] with 5 more days which she should have completed on 12/15) she again complained of suprapubic discomfort with CT showing diffuse bladder wall thickening as well as analysis positive for LE and moderate amount of bacteria. No evidence of pyelonephritis IV Invanz restarted on 12/19 and ID consulted. Per ID , leukocytosis likely reactive due to surgery (7) Rib fracture Current Visit: Yes Status: Acute Assessment and Plan: also a sequelae of mechanical fall conservative mx (8) Constipation Current Visit: Yes Status: Acute Assessment and Plan: Initial CT scan was reported as rectosigmoid fecal impaction Since admission, pt continues to have adequate BM. Repeat CT scan on 12/18 confirms resolution of fecal impaction continue bowel regimen Last colonoscopy on 11/2015 unremarkable. 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 She is brought in again to the ER with the complaint of left hip, lower abdominal and left should pain after a fall she suffered 3 days ago while trying to get up from her wheelchair. She was found to be in pain diffusely in the ER and had multiple ecchymotic areas. Barahona scans were done and found to have some new spinal compression fractures at different thoracolumbar levels with the T12 level showing retropulsion and facet widening. Neurosurgery was consulted and the patient will have evaluated. In the interim we will manage her pain and ensure she remains neurologically stable. - Time Spent with Patient Total time spent is greater than 50% in coordination of care (as documented) at patient's floor/unit and/or counseling patient: less than 15 minutes Plan of Care Discussed with: patient Internal Medicine: Result - Labs CBC & Chem 7: 12/21/18 00:59 12/21/18 00:59 Labs: Short CBC 12/21/18 Range/Units 00:59 WBC 12.1 H (4.3-11.1) K/mcL Hgb 9.3 L (11.5-15.4) g/dL Hct 29.9 L (35.3-44.9) % Plt Count 222 (140-400) K/mcL Neutrophils # 8.9 (1.6-8.9) K/mcL BMP 12/21/18 00:59 Sodium 136 Potassium 4.6 Chloride 101 Carbon Dioxide 29 BUN 16 Creatinine 1.06 Glucose 158 H Calcium 8.8 Cardiac Enzymes 12/20/18 12/21/18 Range/Units 19:02 00:59 Troponin I 0.05 H* 0.05 H* (< 0.04) ng/mL - ABG Interpretation ABG results: ABG ABG pH 7.37 pH Units (7.32-7.45) 12/19/18 14:24 ABG pCO2 37 mmHg (35-45) 12/19/18 14:24 ABG pO2 220 mmHg (85-104) H 12/19/18 14:24 ABG O2 Saturation 100 % (95-98) H 12/19/18 14:24 PT/INR, D-dimer PT 11.6 Seconds (9.4-12.1) 12/19/18 06:13 - Impressions Impressions Echocardiogram Limited Views 12/20/18 14:10 Impressions: LVEF 65%. Normal LV chamber size, wall thickness and function. Left Ventricular Wall Motion: Rest Echo Findings All wall segments showed normal motion. Findings: Study Quality * Technically adequate exam. ECG Findings * Normal sinus rhythm. Left Ventricle * LVEF 65%. * Normal LV chamber size, wall thickness and function. Right Ventricle * Normal right ventricular structure and function. Aorta * Normally sized aortic root. Pericardium * The pericardium appears normal. Lumbar Spine X-Ray 12/21/18 08:18 IMPRESSION: Satisfactory appearance of the thoracolumbar spine following fusion presumably for acute fracture. D/ / Migue Ackerman MD / Migue Ackerman MD Interpreting Provider: Migue Ackerman MD Consult Discharge Plan - Plan Referrals: Alex Steward MD [Primary Care Provider] - __ (2) Hypothyroid Qualifiers: Hypothyroidism type: unspecified Qualified Code(s): E03.9 - Hypothyroidism, unspecified (3) COPD (chronic obstructive pulmonary disease) Qualifiers: Emphysema type: unspecified Qualified Code(s): J43.9 - Emphysema, unspecified (5) Diabetes mellitus Qualifiers: Diabetes mellitus type: type 2 Diabetes mellitus detention insulin use: with detention use Diabetes mellitus complication status: with kidney complications Diabetes mellitus complication detail: with chronic kidney disease Chronic kidney disease stage: stage 3 (moderate) Qualified Code(s): E11.22 - Type 2 diabetes mellitus with diabetic chronic kidney disease; N18.3 - Chronic kidney disease, stage 3 (moderate); Z79.4 - long term care pharmacist (current) use of insulin (7) Rib fracture Qualifiers: Encounter type: subsequent encounter Rib fracture type: multiple ribs Fracture type: closed Laterality: unspecified laterality Fracture healing: with routine healing Qualified Code(s): S22.49XD - Multiple fractures of ribs, unspecified side, subsequent encounter for fracture with routine healing (8) Constipation Qualifiers: Constipation type: unspecified constipation type Qualified Code(s): K59.00 - Constipation, unspecified
[2018-12-21] MEDS: Melatonin 3 MG TABLET PO SCH (22:42)
[2018-12-22] MEDS: Acetaminophen 325 MG TABLET PO PRN ×2 (04:59→20:11)
[2018-12-22] MEDS: *HR* Heparin 5,000 UNIT/ML VIAL SQ SCH ×2 (04:59→17:24)
[2018-12-22 06:46] LABS: BUN/Creatinine Ratio 16 (6-26); Basophils % 0.4 %; Blood Urea Nitrogen 16 mg/dL (8-23); Calcium 8.8 mg/dL (8.6-10.3); Carbon Dioxide 28 mEq/L (23-29); Chloride 102 mEq/L (98-107); Eosinophils # 0.3 K/mcL (0.0-0.6); Eosinophils % 2.5 %; Glucose 164 mg/dL (70-105); Hematocrit 30.5 % (35.3-44.9); Hemoglobin 9.6 g/dL (11.5-15.4); Immature Granulocytes % 0.8 % (0-4); Lymphocytes # 2.1 K/mcL (0.6-4.6); Lymphocytes % 19.4 %; Mean Corpuscular HGB Conc 31.5 g/dL (31.6-35.5); Mean Corpuscular Hemoglobin 31.1 pg (28.0-33.3); Mean Corpuscular Volume 98.7 fL (83.0-100.0); Mean Platelet Volume 10.6 fL (9.4-12.4); Monocytes # 1.2 K/mcL (0.0-1.3); Monocytes % 10.9 %; Neutrophils # 7.1 K/mcL (1.6-8.9); Osmolality,Calculated 291 (280-300); Platelet Count 226 K/mcL (140-400); Potassium 4.7 mEq/L (3.5-5.1); Red Blood Count 3.09 M/mcL (3.82-4.97); Red Cell Distribution Width 14.7 % (11.5-14.5); Sodium 138 mEq/L (136-145); White Blood Count 10.8 K/mcL (4.3-11.1); eGFR For African Americans > 60 (> 60); eGFR For Non-African Americans 56 (> 60)
[2018-12-22] MEDS: ARIPiprazole 10 MG TABLET PO SCH (09:19)
[2018-12-22] MEDS: Famotidine 20 MG TABLET PO SCH (09:20)
[2018-12-22] MEDS: Insulin LISPRO 300 UNITS/3 ML VIAL SQ SCH ×4 (09:20→20:07)
[2018-12-22] MEDS: Venlafaxine XR (24 HR) 75 MG CAP.ER.24H PO SCH (09:20)
[2018-12-22] MEDS: Gabapentin 400 MG CAPSULE PO SCH ×3 (09:20→20:11)
[2018-12-22] MEDS: Insulin DETEMIR 100 UNIT/ML X5UNITS SQ SCH (09:21)
[2018-12-22] MEDS: Sennosides/Docusate Sodium TABLET PO SCH ×2 (09:33→20:08)
[2018-12-22] MEDS: MOM Conc 10 ML UD.LIQ GTUBE SCH (09:33)
--- NOTE | 2018-12-22 10:58 | Discharge Summary ---
- NOTES TO OUTPATIENT PROVIDER Notes to Outpatient Provider: PCP in 5 to 7 days Orders not resulted at time of discharge: Pending orders 12/17/18 06:00 ECG 12 lead ECG [ECG] AM 0600 12/21/18 18:55 Culture,Urine [RM] Routine Date of Encounter: 12/23/18 Time of Encounter: 10:57 - Discharge Diagnosis (1) Burst fracture of T12 vertebra Priority: Primary Status: Acute Assessment and Plan: following an episode of fall underwent posterior fusion T10-L3 on 12/19, POD#1 follow with orthopedics out pt in 2 weeks following discharge (2) Hypothyroid Priority: Secondary Status: Chronic Assessment and Plan: Levothyroxine Qualifiers: Hypothyroidism type: unspecified Qualified Code(s): E03.9 - Hypothyroidism, unspecified (3) COPD (chronic obstructive pulmonary disease) Priority: Secondary Status: Chronic Assessment and Plan: not in exacerbation PRN albuterol Qualifiers: Emphysema type: unspecified Qualified Code(s): J43.9 - Emphysema, unspecified (4) CKD (chronic kidney disease) stage 3, GFR 30-59 ml/min Priority: Secondary Status: Chronic Assessment and Plan: Cr at baseline Avoid nephrotoxins (5) Diabetes mellitus Priority: Secondary Status: Chronic Assessment and Plan: Continue basal and SS insulin Qualifiers: Diabetes mellitus type: type 2 Diabetes mellitus halfway insulin use: with halfway use Diabetes mellitus complication status: with kidney complications Diabetes mellitus complication detail: with chronic kidney disease Chronic kidney disease stage: stage 3 (moderate) Qualified Code(s): E11.22 - Type 2 diabetes mellitus with diabetic chronic kidney disease; N18.3 - Chronic kidney disease, stage 3 (moderate); Z79.4 - long-term (current) use of insulin (6) UTI due to extended-spectrum beta lactamase (ESBL) producing Escherichia coli Priority: Secondary Status: Acute Assessment and Plan: recently admitted for sepsis due to ESBL E. coli and treated with IV Invanz for a total of 7 days (discharged on 12/10 to [facility] with 5 more days which she should have completed on 12/15) she again complained of suprapubic discomfort with CT showing diffuse bladder wall thickening as well as analysis positive for LE and moderate amount of bacteria. No evidence of pyelonephritis. IV Invanz restarted on 12/19 and ID consulted. Per ID , leukocytosis likely reactive due to surgery. Pt had low grade temp today 12/22/18 so ID recommended monitoring overnight. Urine showed yeast. Will give one time dose Diflucan and have her follow up out pt with PCP. (7) Rib fracture Priority: Secondary Status: Acute Assessment and Plan: also a sequelae of mechanical fall conservative mx Qualifiers: Encounter type: subsequent encounter Rib fracture type: multiple ribs Fracture type: closed Laterality: unspecified laterality Fracture healing: with routine healing Qualified Code(s): S22.49XD - Multiple fractures of ribs, unspecified side, subsequent encounter for fracture with routine healing (8) Constipation Priority: Secondary Status: Acute Assessment and Plan: Initial CT scan was reported as rectosigmoid fecal impaction Since admission, pt continues to have adequate BM. Repeat CT scan on 12/18 confirms resolution of fecal impaction continue bowel regimen Last colonoscopy on 11/2015 unremarkable. 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 She is brought in again to the ER with the complaint of left hip, lower abdominal and left should pain after a fall she suffered 3 days ago while trying to get up from her wheelchair. She was found to be in pain diffusely in the ER and had multiple ecchymotic areas. Barahona scans were done and found to have some new spinal compression fractures at different thoracolumbar levels with the T12 level showing retropulsion and facet widening. Neurosurgery was consulted and the patient will have evaluated. In the interim we will manage her pain and ensure she remains neurologically stable. Discharge discussed with: patient - Time Spent with Patient Total time spent providing and/or coordinating discharge services: Time spent: Greater than 30 minutes - Discharge Medications Prescriptions: Continued Simvastatin [Zocor] 40 mg PO HS Levothyroxine Sodium [Synthroid] 137 mcg PO DAILY Albuterol Sulfate [Ventolin Hfa] 2 puff IH Q4H PRN PRN Reason: Shortness Of Breath Famotidine [Pepcid] 40 mg PO DAILY Pioglitazone HCl 30 mg PO DAILY Venlafaxine HCl [Venlafaxine HCl ER] 150 mg PO DAILY Insulin LISPRO [HumaLOG] 0 units SQ TIDWM Acetaminophen [Tylenol] 1,000 mg PO TID PRN PRN Reason: Pain Aripiprazole [Abilify] 15 mg PO DAILY Glimepiride [Amaryl] 1 mg PO DAILY Methyl Salicylate/Menth/Camph [Bengay Ultra Strength Cream] 1 appl TP AD MOM Conc [MILK OF MAGNESIA conc] 30 ml GTUBE DAILY Nicotine Patch [Nicoderm] 14 mg TP DAILY Quetiapine Fumarate [Seroquel] 25 mg PO DAILY Gabapentin [Neurontin] 400 mg PO TID #12 capsule Insulin Degludec [Tresiba Flextouch U-100] 20 unit SQ DAILY 30 Days insuln.pen Tramadol HCl [Ultram] 50 mg PO Q4H PRN PRN Reason: Pain Ertapenem [INVanz] 1,000 mg IVPB DAILY Ipratropium/Albuterol Neb [Duoneb] 3 ml IH Q6HR PRN PRN Reason: Shortness Of Breath Benztropine Mesylate 0.5 mg PO DAILY Multivitamin with Minerals [One-A-Day Maximum Formula] 1 tab PO DAILY Melatonin 5 mg PO HS Lidocaine [Lidoderm] 1 patch TP DAILY Home Medications: Albuterol Sulfate [Ventolin Hfa] 2 puff IH Q4H PRN 07/22/17 [History] Levothyroxine Sodium [Synthroid] 137 mcg PO DAILY 07/22/17 [History] Simvastatin [Zocor] 40 mg PO HS 07/22/17 [History] Ipratropium/Albuterol Neb [Duoneb] 3 ml IH Q6HR PRN 04/05/18 [History] Famotidine [Pepcid] 40 mg PO DAILY 06/14/18 [History] Pioglitazone HCl 30 mg PO DAILY 06/14/18 [History] Venlafaxine HCl [Venlafaxine HCl ER] 150 mg PO DAILY 06/14/18 [History] Benztropine Mesylate 0.5 mg PO DAILY 09/24/18 [History] Lidocaine [Lidoderm] 1 patch TP DAILY 11/23/18 [History] Melatonin 5 mg PO HS 11/23/18 [History] Multivitamin with Minerals [One-A-Day Maximum Formula] 1 tab PO DAILY 11/23/18 [History] Insulin LISPRO [HumaLOG] 0 units SQ TIDWM 12/07/18 [History] Acetaminophen [Tylenol] 1,000 mg PO TID PRN 12/09/18 [History] Aripiprazole [Abilify] 15 mg PO DAILY 12/09/18 [History] Glimepiride [Amaryl] 1 mg PO DAILY 12/09/18 [History] MOM Conc [MILK OF MAGNESIA conc] 30 ml GTUBE DAILY 12/09/18 [History] Methyl Salicylate/Menth/Camph [Bengay Ultra Strength Cream] 1 appl TP AD 12/09/18 [History] Nicotine Patch [Nicoderm] 14 mg TP DAILY 12/09/18 [History] Quetiapine Fumarate [Seroquel] 25 mg PO DAILY 12/09/18 [History] Gabapentin [Neurontin] 400 mg PO TID #12 capsule 12/10/18 [Rx] Insulin Degludec [Tresiba Flextouch U-100] 20 unit SQ DAILY 30 Days insuln.pen 12/10/18 [Rx] Ertapenem [INVanz] 1,000 mg IVPB DAILY 12/16/18 [History] Tramadol HCl [Ultram] 50 mg PO Q4H PRN 12/16/18 [History] Allergies/Adverse Reactions: Allergy/AdvReac Type Severity Reaction Status Date / Time prednisone AdvReac See Verified 12/09/18 11:24 Comments Date of admission: 12/16/18 23:06 Primary care physician: Alex Steward MD Consults: 12/16/18 20:14 Consult to Physician [CONS] Stat Consulting Provider: Stef Skaggs Jr Reason for Consult: t12 unstable fx Call Completed: Yes Consult to Spine Navigator [CONS] [CONS] Stat 12/19/18 18:00 Consult to Occupational Therapy [CONS] Routine Comment: Evaluate, develop and implement POC Reason for Consult: Postoperative rehabilitation Does patient have active BEDREST order?: No Is patient medically & hemodynamically stable?: Yes Patient assessed for mobility or mobilized this visit?: No Consult to Physical Therapy [CONS] Routine Comment: Evaluate, develop and implement POC Reason for Consult: Postoperative rehabilitation Does patient have active BEDREST order?: No Is patient medically & hemodynamically stable?: Yes Patient assessed for mobility or mobilized this visit?: No Consult to Director Of Environmental Services [CONS] Routine Reason for SW Consult: Postoperative rehabilitation Consult to Spine Navigator [CONS] [CONS] Routine 12/20/18 11:23 Consult to Infectious Diseases [CONS] Routine Consulting Provider: Infectious Disease [place] Reason for Consult: ESBL E coli UTI, previously treated for 7 days but continues to be symptomatic with +ve UA Call Completed: Yes Discharging clinician: Rosalind Del Rio Anticipated date of discharge: 12/23/18 - Constitutional Vitals: Temp Pulse Resp BP Pulse Ox 99.2 F 80 17 120/77 93 12/22/18 10:52 12/22/18 10:52 12/22/18 10:52 12/22/18 10:52 12/22/18 10:52 Exam: General: Pt has dementia at baseline. Head: Atraumatic, normal inspection, normocephalic. Eye: EOMI, PERRLA, no scleral icterus noted. ENT: Mucous membranes dry. No odontogenic infection noted. Neck: Normal inspection, no meningismus. Respiratory: Clear to auscultation. No rales, respiratory distress, rhonchi, or wheezes noted. Cardiovascular: Regular rate and rhythm. S1 and S2 audible. No murmurs, rubs, or gallops. GI: Soft, nondistended, normal bowel sounds. Generalized tenderness noted on exam. Cummins catheter noted to be draining clear yellow urine. Extremities: No joint swelling, pedal edema, or tenderness noted. Back: Normal inspection. Post-op dressing C/D/I. Neurological: Alert, does not answer questions so unable to assess orientation. ZARAGOZA x 4 spontaneously. Psychiatric: Agitated. Skin: Dry, intact, warm. Normal color. No rashes. - Patient Status Disposition: Transfer SNF Condition: Fair Overall status at discharge: patient is progressing back to baseline - Discharge Instructions Follow Up With: Alex Steward MD [Primary Care Provider] - - Diet and Activity Activity: as per physical therapy, increase activity as tolerated Diet: diabetic diet
--- NOTE | 2018-12-22 12:15 | Orthopedics Progress Note ---
Date of Encounter: 12/22/18 Time of Encounter: 10:35 - Assessment and Plan (1) Status post lumbar spinal fusion Current Visit: Yes Status: Acute (2) Burst fracture of T12 vertebra Current Visit: Yes Status: Acute (3) Compression fracture Current Visit: Yes Status: Acute Subjective Principal diagnosis: Burst fracture T12, compression fractures L1-L2 Interval history: POD#3 s/p Instrumented posterior spinal fusion T10-L3 [Unstable burst fracture T12, vertebral compression fractures L1 and L2] 12/19/[address] Skaggs. Patient supine in bed, working with therapy upon entry. Neurovascularly intact with regard to bilateral lower extremities. Fires all upper and lower extremity motor groups. Patient appears to have improved control of postoperative pain though I believe her baseline dementia may be complicating ability to accurately assess and control her pain. Lidoderm patch was ordered 12/20 to patient's back and encouraged continued mobilization with therapy Continue analgesics Dr. Skaggs saw patient earlier today. Xrays reviewed by myself and Dr. Skaggs. Report as follows: ORDERING SYSTEM PROVIDED HISTORY: Postoperative Acute abnormality. Initial exam. FINDINGS: The patient has undergone fusion of the thoracolumbar spine between T10 and L3 with intrapedicular screws and vertical rods. Moderate compression fracture of T12 is noted. Mild old compression fracture of L1 also present. Slight spondylolisthesis left L5 on S1. [id number] facet arthropathy in the lower lumbar spine. Clips from prior cholecystectomy noted. XR/XR lumbar spine 2-3V IMPRESSION: Satisfactory appearance of the thoracolumbar spine following fusion presumably for acute fracture. D/ / Migue Ackerman MD / Migue Ackerman MD Patient appropriate for discharge from orthopedic perspective with the following restrictions: Brace with all ambulatory activity Avoid bending/twisting at waist (belly button) No lifting greater than 10lbs Remove gauze dressing day after discharge and leave mesh in place. Cleanse daily with soap and water and pat dry. DO NOT REMOVE DERMABOND MESH. Patient course and disposition discussed with Dr. Skaggs Discharge planning - per nursing staff patient is a return to the facility where she resides Objective Vital signs: Vital Signs Temp Pulse Resp BP Pulse Ox 12/22/18 10:52 99.2 F 80 17 120/77 93 12/22/18 07:53 98.7 F 79 18 120/67 93 12/22/18 03:31 99.1 F 83 18 130/80 92 12/22/18 03:30 92 12/21/18 22:44 99.4 F 98 18 135/70 92 12/21/18 18:55 98.7 F 94 17 113/73 95 12/21/18 17:16 99.5 F 92 17 131/71 93 12/21/18 12:33 100.7 F H 93 16 133/81 93 Intake and Output 12/21/18 12/22/18 12/22/18 23:59 07:59 15:59 Intake Total 50 / 100 Output Total 200 / 200 Balance 50 / -550 -200 / -200 Intake: Oral 50 / 100 Output: Catheter 200 / 200 Other: Meal Breakfast Percent of Meal Consumed 0% Blood Glucose* 130 246 181 - Labs CBC & BMP: 12/22/18 05:32 12/22/18 05:32 Labs: Abnormal lab results WBC 12.1 K/mcL (4.3-11.1) H 12/21/18 00:59 RBC 3.09 M/mcL (3.82-4.97) L 12/22/18 05:32 Hgb 9.6 g/dL (11.5-15.4) L 12/22/18 05:32 Hct 30.5 % (35.3-44.9) L 12/22/18 05:32 MCHC 31.5 g/dL (31.6-35.5) L 12/22/18 05:32 RDW 14.7 % (11.5-14.5) H 12/22/18 05:32 ESR 56 mm/hr (0-15) H 12/16/18 18:21 ABG pO2 220 mmHg (85-104) H 12/19/18 14:24 ABG O2 Saturation 100 % (95-98) H 12/19/18 14:24 ABG Base Excess -4 mEq/L (-2 to 3) L 12/19/18 14:24 Glucose 220 mg/dL (60-95) H 12/19/18 14:24 Sodium 135 mEq/L (136-145) L 12/20/18 04:05 BUN 28 mg/dL (8-23) H 12/16/18 18:21 Est GFR ( Amer) 58 (> 60) L 12/20/18 04:05 Est GFR (Non-Af Amer) 56 (> 60) L 12/22/18 05:32 Glucose 164 mg/dL (70-105) H 12/22/18 05:32 POC Glucose 130 mg/dL (70-99) H 12/21/18 19:50 301 (280-300) H 12/16/18 18:21 Calcium 8.5 mg/dL (8.6-10.3) L 12/20/18 04:05 366 Units/L (34-104) H 12/16/18 18:21 0.05 ng/mL (< 0.04) H* 12/21/18 00:59 21 mg/L (Less than 10) H 12/16/18 18:21 1.02 mmol/L (1.15-1.35) L 12/19/18 14:24 30 mg/dL (Neg-Trace) H 12/19/18 09:10 >=1000 mg/dL (Normal) H 12/19/18 09:10 40 mg/dL (Negative) H 12/19/18 09:10 Small (Negative) H 12/19/18 09:10 Moderate (Negative) H 12/19/18 09:10 Ur Leukocyte Esterase Large (Negative) H 12/19/18 09:10 TNTC per hpf (0-3) H 12/19/18 09:10 Ur Squamous Epith Cells Many per lpf (None-Few) H 12/19/18 09:10 Moderate per hpf (None-Few) H 12/19/18 09:10 Many per hpf (None Seen) H 12/19/18 09:10 Ur Culture Indicated? YES (NO) A 12/19/18 09:10 Consult Discharge Plan - Plan Referrals: Alex Steward MD [Primary Care Provider] -
--- NOTE | 2018-12-22 12:58 | Infectious Disease Progress No ---
ID Progress Note Date of Encounter: 12/22/18 Time of Encounter: 12:56 - Subjective Subjective: Patient seen and examined. No acute events noted overnight. Tmax 100.7 overnight, but WBC normalized this morning. Patient appears more alert today. She is resting quietly in bed upon my entrance into the room. Awakens easily. She is oriented 2. States she no she had back surgery. Complains of pain in her back. Denies chest pain, shortness of breath, or cough. Denies nausea, vomiting, diarrhea, or constipation. She is noted to be incontinent of loose brown stool during my exam. She denies oral thrush or skin rashes. - Objective CBC & Chem 7: 12/22/18 05:32 12/22/18 05:32 - Line Documentation Line Documentation: Osorio Catheter (Draining clear yellow urine.) - Exam Vitals: Temp Pulse Resp BP Pulse Ox 99.2 F 80 17 120/77 93 12/22/18 10:52 12/22/18 10:52 12/22/18 10:52 12/22/18 10:52 12/22/18 10:52 Exam: Head: Atraumatic, normal inspection, normocephalic. Eye: EOMI, PERRLA, no scleral icterus noted. ENT: Mucous membranes dry. No odontogenic infection noted. Neck: Normal inspection, no meningismus. Respiratory: Clear to auscultation. No rales, respiratory distress, rhonchi, or wheezes noted. Cardiovascular: Regular rate and rhythm. S1 and S2 audible. No murmurs, rubs, or gallops. GI: Soft, nondistended, normal bowel sounds. Nontender. Osorio catheter noted to be draining clear yellow urine. Extremities: No joint swelling, pedal edema, or tenderness noted. Back: Normal inspection. Post-op dressing C/D/I. surgical site with sutures intact with wound edges well approximated. No surrounding erythema, warmth, or purulent drainage. Scant amount of serous drainage noted on the dressing. Expected postoperative tenderness noted on palpation. Neurological: Awakens easily to verbal stimuli. Cooperative. Follows commands. Moves all extremities 4 on command. Oriented to person and situation. Skin: Dry, intact, warm. Normal color. No rashes. - Assessment and Plan (1) Leukocytosis Current Visit: Yes Status: Resolved Resolved. Likely reactive from surgery. Continue to trend. Qualifiers: Leukocytosis type: unspecified Qualified Code(s): D72.829 - Elevated white blood cell count, unspecified SNOMED Code(s): 884332535, 370897221 (2) UTI due to extended-spectrum beta lactamase (ESBL) producing Escherichia coli Current Visit: Yes Status: Acute Urine cultures have been positive for E. coli MDRO dating back to 10/21/18. Treated with 7 days of IV Ertapenem. Colonization vs. true infection. 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 No evidence of pyelonephritis clinically or on CT scan. Urine culture positive for grossly mixed dyan. Treated with 2 days of IV ertapenem and given a dose of oral fosfomycin 12/21/18. SNOMED Code(s): 847184410 (3) Burst fracture of T12 vertebra Current Visit: Yes Status: Acute Status post fall. Ortho-spine consulted. Per radiologist, MRI showed a foci of low-intensity signal in the vertebral body of T12 that corresponds with gas noted on CT, but I do not note any gas on the CT reports. Status post instrumented posterior spinal fusion T10-L3 12/19/[address] Skaggs. Post-op xray normal. Clinically, the site looks good without evidence of infection. SNOMED Code(s): 338345414 (4) Compression fracture Current Visit: Yes Status: Acute Location: T12, L1, L2. Secondary to fall. Management per the primary and ortho-spine teams. SNOMED Code(s): 778807466 (5) Rib fracture Current Visit: Yes Status: Acute Status post fall. Management per the primary team. Qualifiers: Encounter type: subsequent encounter Rib fracture type: multiple ribs Fracture type: closed Laterality: unspecified laterality Fracture healing: with routine healing Qualified Code(s): S22.49XD - Multiple fractures of ribs, unspecified side, subsequent encounter for fracture with routine healing SNOMED Code(s): 06725884 (6) Hypothyroid Current Visit: No Status: Chronic Qualifiers: Hypothyroidism type: unspecified Qualified Code(s): E03.9 - Hypothyroidism, unspecified SNOMED Code(s): 06054145 (7) HLD (hyperlipidemia) Current Visit: No Status: Chronic Qualifiers: Hyperlipidemia type: unspecified Qualified Code(s): E78.5 - Hyperlipidemia, unspecified SNOMED Code(s): 27100897 (8) Diabetes mellitus Current Visit: No Status: Chronic Recommend aggressive glucose monitoring and control. Management per the primary team. 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 Avoid nephrotoxins as able. SNOMED Code(s): 639491361 (10) Obesity Current Visit: No Status: Chronic Qualifiers: Obesity type: unspecified obesity type Body mass index: unspecified BMI SNOMED Code(s): 957279423, 625708559 (11) COPD (chronic obstructive pulmonary disease) Current Visit: No Status: Chronic Qualifiers: Emphysema type: unspecified Qualified Code(s): J43.9 - Emphysema, unspecified SNOMED Code(s): 97057038 (12) Chest pain Current Visit: Yes Status: Resolved Etiology unclear. Patient unable to provide any information other than she is having chest pain. MSK vs. cardiac? EKG obtained. Troponins mildly elevated. Further workup and management per the primary team. Resolved. SNOMED Code(s): 16906125 (13) Abdominal pain Current Visit: Yes Status: Resolved Etiology: unclear. CT abdomen and pelvis on admission concerning for fecal impaction and stercoral colitis. Repeat CT 12/18 showed resolution of fecal impaction, but showed cystitis. Abdominal exam benign today. Urine culture positive for grossly mixed dyan. Resolved. Qualifiers: Abdominal location: generalized Qualified Code(s): R10.84 - Generalized abdominal pain SNOMED Code(s): 83125504 - Recommendations Recommendations: Post-op wound care and activity per the ortho-spine team. Hold additional antibiotics for now and observe. No further recommendations from the ID team. We will sign off. Please reconsult if needed. Consult Discharge Plan - Plan Referrals: Alex Steward MD [Primary Care Provider] -
--- NOTE | 2018-12-22 19:28 | Internal Med Progress Note ---
Hospitalist Progress Note - Encounter Date of Encounter: 12/22/18 Time of Encounter: 19:25 - Subjective Interval History: Patient has dementia at baseline. Nurse does not report any complaints overnight. No Chest pain. No SOB. Afebrile. - Exam Vitals: Temp Pulse Resp BP Pulse Ox 99.0 F 86 16 117/72 91 12/22/18 18:36 12/22/18 18:36 12/22/18 18:36 12/22/18 18:36 12/22/18 18:36 Exam: Head: Atraumatic, normal inspection, normocephalic. Eye: EOMI, PERRLA, no scleral icterus noted. ENT: Mucous membranes dry. No odontogenic infection noted. Neck: Normal inspection, no meningismus. Respiratory: Clear to auscultation. No rales, respiratory distress, rhonchi, or wheezes noted. Cardiovascular: Regular rate and rhythm. S1 and S2 audible. No murmurs, rubs, or gallops. GI: Soft, nondistended, normal bowel sounds. Generalized tenderness noted on exam. Cummins catheter noted to be draining clear yellow urine. Extremities: No joint swelling, pedal edema, or tenderness noted. Back: Normal inspection. Post-op dressing C/D/I. Neurological: Alert, does not answer questions so unable to assess orientation. ZARAGOZA x 4 spontaneously. Psychiatric: Agitated. Skin: Dry, intact, warm. Normal color. No rashes. - Assessment and Plan (1) Burst fracture of T12 vertebra Current Visit: Yes Status: Acute Assessment and Plan: following an episode of fall underwent posterior fusion T10-L3 on 12/19, POD#1 follow with orthopedics out pt in 2 weeks following discharge (2) Hypothyroid Current Visit: No Status: Chronic Assessment and Plan: Levothyroxine (3) COPD (chronic obstructive pulmonary disease) Current Visit: No Status: Chronic Assessment and Plan: not in exacerbation PRN albuterol (4) CKD (chronic kidney disease) stage 3, GFR 30-59 ml/min Current Visit: No Status: Chronic Assessment and Plan: Cr at baseline Avoid nephrotoxins (5) Diabetes mellitus Current Visit: No Status: Chronic Assessment and Plan: Continue basal and SS insulin (6) UTI due to extended-spectrum beta lactamase (ESBL) producing Escherichia coli Current Visit: Yes Status: Acute Assessment and Plan: recently admitted for sepsis due to ESBL E. coli and treated with IV Invanz for a total of 7 days (discharged on 12/10 to [facility] with 5 more days which she should have completed on 12/15) she again complained of suprapubic discomfort with CT showing diffuse bladder wall thickening as well as analysis positive for LE and moderate amount of bacteria. No evidence of pyelonephritis. IV Invanz restarted on 12/19 and ID consulted. Per ID , leukocytosis likely reactive due to surgery. Pt had low grade temp today 12/22/18 so ID recommends monitoring overnight. (7) Rib fracture Current Visit: Yes Status: Acute Assessment and Plan: also a sequelae of mechanical fall conservative mx (8) Constipation Current Visit: Yes Status: Acute Assessment and Plan: Initial CT scan was reported as rectosigmoid fecal impaction Since admission, pt continues to have adequate BM. Repeat CT scan on 12/18 confirms resolution of fecal impaction continue bowel regimen Last colonoscopy on 11/2015 unremarkable. 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 She is brought in again to the ER with the complaint of left hip, lower abdominal and left should pain after a fall she suffered 3 days ago while trying to get up from her wheelchair. She was found to be in pain diffusely in the ER and had multiple ecchymotic areas. Barahona scans were done and found to have some new spinal compression fractures at different thoracolumbar levels with the T12 level showing retropulsion and facet widening. Neurosurgery was consulted and the patient will have evaluated. In the interim we will manage her pain and ensure she remains neurologically stable. - Time Spent with Patient Total time spent is greater than 50% in coordination of care (as documented) at patient's floor/unit and/or counseling patient: less than 15 minutes Plan of Care Discussed with: patient Internal Medicine: Result - Labs CBC & Chem 7: 12/22/18 05:32 12/22/18 05:32 Labs: Short CBC 12/22/18 Range/Units 05:32 WBC 10.8 (4.3-11.1) K/mcL Hgb 9.6 L (11.5-15.4) g/dL Hct 30.5 L (35.3-44.9) % Plt Count 226 (140-400) K/mcL Neutrophils # 7.1 (1.6-8.9) K/mcL BMP 12/22/18 05:32 Sodium 138 Potassium 4.7 Chloride 102 Carbon Dioxide 28 BUN 16 Creatinine 0.98 Glucose 164 H Calcium 8.8 - ABG Interpretation ABG results: ABG ABG pH 7.37 pH Units (7.32-7.45) 12/19/18 14:24 ABG pCO2 37 mmHg (35-45) 12/19/18 14:24 ABG pO2 220 mmHg (85-104) H 12/19/18 14:24 ABG O2 Saturation 100 % (95-98) H 12/19/18 14:24 PT/INR, D-dimer PT 11.6 Seconds (9.4-12.1) 12/19/18 06:13 - Impressions Impressions Chest X-Ray 12/21/18 18:56 IMPRESSION: Increased central and basilar opacity. Pulmonary edema would be the primary consideration. However, given the patient's history, bronchitis and bronchopneumonia are also considered. D/ / Jeff Canela MD / Jeff Canela MD Interpreting Provider: Jeff Canela MD Consult Discharge Plan - Plan Referrals: Alex Steward MD [Primary Care Provider] - (2) Hypothyroid Qualifiers: Hypothyroidism type: unspecified Qualified Code(s): E03.9 - Hypothyroidism, unspecified (3) COPD (chronic obstructive pulmonary disease) Qualifiers: Emphysema type: unspecified Qualified Code(s): J43.9 - Emphysema, unspecified (5) Diabetes mellitus Qualifiers: Diabetes mellitus type: type 2 Diabetes mellitus nursing home insulin use: with nursing home use Diabetes mellitus complication status: with kidney complications Diabetes mellitus complication detail: with chronic kidney disease Chronic kidney disease stage: stage 3 (moderate) Qualified Code(s): E11.22 - Type 2 diabetes mellitus with diabetic chronic kidney disease; N18.3 - Chronic kidney disease, stage 3 (moderate); 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
[2018-12-22] MEDS: Melatonin 3 MG TABLET PO SCH (20:13)
[2018-12-23 05:35] LABS: Basophils # 0.1 K/mcL (0.0-0.2); Basophils % 0.6 %; Eosinophils # 0.4 K/mcL (0.0-0.6); Eosinophils % 4.6 %; Hematocrit 30.1 % (35.3-44.9); Hemoglobin 9.3 g/dL (11.5-15.4); Immature Granulocytes % 1.3 % (0-4); Lymphocytes # 2.2 K/mcL (0.6-4.6); Lymphocytes % 25.9 %; Mean Corpuscular HGB Conc 30.9 g/dL (31.6-35.5); Mean Corpuscular Hemoglobin 30.1 pg (28.0-33.3); Mean Corpuscular Volume 97.4 fL (83.0-100.0); Mean Platelet Volume 9.5 fL (9.4-12.4); Monocytes # 0.7 K/mcL (0.0-1.3); Monocytes % 8.5 %; Platelet Count 249 K/mcL (140-400); Red Blood Count 3.09 M/mcL (3.82-4.97); Red Cell Distribution Width 14.9 % (11.5-14.5); Segmented Neutrophils % 59.1 %; White Blood Count 8.5 K/mcL (4.3-11.1)
[2018-12-23] MEDS: *HR* Heparin 5,000 UNIT/ML VIAL SQ SCH (05:56)
[2018-12-23 05:57] LABS: BUN/Creatinine Ratio 16 (6-26); Blood Urea Nitrogen 14 mg/dL (8-23); Calcium 8.5 mg/dL (8.6-10.3); Carbon Dioxide 28 mEq/L (23-29); Chloride 102 mEq/L (98-107); Glucose 104 mg/dL (70-105); Osmolality,Calculated 289 (280-300); Potassium 3.9 mEq/L (3.5-5.1); Sodium 139 mEq/L (136-145); eGFR For African Americans > 60 (> 60); eGFR For Non-African Americans > 60 (> 60)
[2018-12-23] MEDS: Acetaminophen 325 MG TABLET PO PRN (05:57)
[2018-12-23] MEDS: Insulin LISPRO 300 UNITS/3 ML VIAL SQ SCH ×3 (08:27→17:59)
[2018-12-23] MEDS: Gabapentin 400 MG CAPSULE PO SCH ×2 (08:28→15:08)
[2018-12-23] MEDS: Venlafaxine XR (24 HR) 75 MG CAP.ER.24H PO SCH (08:28)
[2018-12-23] MEDS: Insulin DETEMIR 100 UNIT/ML X5UNITS SQ SCH (08:28)
[2018-12-23] MEDS: ARIPiprazole 10 MG TABLET PO SCH (08:28)
[2018-12-23] MEDS: Famotidine 20 MG TABLET PO SCH (08:29)
[2018-12-23] MEDS: MOM Conc 10 ML UD.LIQ GTUBE SCH (08:30)
[2018-12-23] MEDS: Sennosides/Docusate Sodium TABLET PO SCH (08:31)
--- NOTE | 2018-12-23 11:12 | Infectious Disease Progress No ---
ID Progress Note Date of Encounter: 12/23/18 Time of Encounter: 11:10 - Subjective Subjective: Patient seen and examined. No acute events noted overnight. Patient appears more alert today. She is oriented to person only. Complains of pain in her back and lower abdomen. Denies chest pain, shortness of breath, or cough. Denies nausea, vomiting, diarrhea, or constipation. She had a BM yesterday. She denies oral thrush or skin rashes. States her appetite is not very good, but she ate breakfast this morning. - Objective CBC & Chem 7: 12/23/18 05:13 12/23/18 05:13 - Line Documentation Line Documentation: Osorio Catheter (Draining clear yellow urine.) - Exam Vitals: Temp Pulse Resp BP Pulse Ox 97.9 F 66 21 143/78 93 12/23/18 11:02 12/23/18 11:02 12/23/18 11:02 12/23/18 11:02 12/23/18 11:02 Exam: Head: Atraumatic, normal inspection, normocephalic. Eye: EOMI, PERRLA, no scleral icterus noted. ENT: Mucous membranes dry. No odontogenic infection noted. Neck: Normal inspection, no meningismus. Respiratory: Clear to auscultation. No rales, respiratory distress, rhonchi, or wheezes noted. Cardiovascular: Regular rate and rhythm. S1 and S2 audible. No murmurs, rubs, or gallops. GI: Soft, nondistended, normal bowel sounds. Nontender. Osorio catheter noted to be draining clear yellow urine. Extremities: No joint swelling, pedal edema, or tenderness noted. Back: Normal inspection. Surgical site dressing C/D/I. surgical site with sutures intact with wound edges well approximated. No surrounding erythema, warmth, or purulent drainage. Expected postoperative tenderness noted on palpa tion. Neurological: Awakens easily to verbal stimuli. Cooperative. Follows commands. Moves all extremities 4 on command. Oriented to person. Skin: Dry, intact, warm. Normal color. No rashes. - Assessment and Plan (1) Leukocytosis Current Visit: Yes Status: Resolved Resolved. Likely reactive from surgery. Continue to trend. Qualifiers: Leukocytosis type: unspecified Qualified Code(s): D72.829 - Elevated white blood cell count, unspecified SNOMED Code(s): 272854961, 335474961 (2) UTI due to extended-spectrum beta lactamase (ESBL) producing Escherichia coli Current Visit: Yes Status: Acute Urine cultures have been positive for E. coli MDRO dating back to 10/21/18. Treated with 7 days of IV Ertapenem. Colonization vs. true infection. 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 No evidence of pyelonephritis clinically or on CT scan. Urine culture positive for grossly mixed dyan. Repeat urine culture positive for yeast. Treated with 2 days of IV ertapenem and given a dose of oral fosfomycin 12/21/18. SNOMED Code(s): 311884910 (3) Burst fracture of T12 vertebra Current Visit: Yes Status: Acute Status post fall. Ortho-spine consulted. Per radiologist, MRI showed a foci of low-intensity signal in the vertebral body of T12 that corresponds with gas noted on CT, but I do not note any gas on the CT reports. Status post instrumented posterior spinal fusion T10-L3 12/19/[address] Skaggs. Post-op xray normal. Clinically, the site looks good without evidence of infection. SNOMED Code(s): 210007966 (4) Compression fracture Current Visit: Yes Status: Acute Location: T12, L1, L2. Secondary to fall. Management per the primary and ortho-spine teams. SNOMED Code(s): 918558765 (5) Rib fracture Current Visit: Yes Status: Acute Status post fall. Management per the primary team. Qualifiers: Encounter type: subsequent encounter Rib fracture type: multiple ribs Fracture type: closed Laterality: unspecified laterality Fracture healing: with routine healing Qualified Code(s): S22.49XD - Multiple fractures of ribs, unspecified side, subsequent encounter for fracture with routine healing SNOMED Code(s): 36726496 (6) Hypothyroid Current Visit: No Status: Chronic Qualifiers: Hypothyroidism type: unspecified Qualified Code(s): E03.9 - Hypothyroidism, unspecified SNOMED Code(s): 78984338 (7) HLD (hyperlipidemia) Current Visit: No Status: Chronic Qualifiers: Hyperlipidemia type: unspecified Qualified Code(s): E78.5 - Hyperlipidemia, unspecified SNOMED Code(s): 43131849 (8) Diabetes mellitus Current Visit: No Status: Chronic Recommend aggressive glucose monitoring and control. Management per the primary team. 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 Avoid nephrotoxins as able. SNOMED Code(s): 887832325 (10) Obesity Current Visit: No Status: Chronic Qualifiers: Obesity type: unspecified obesity type Body mass index: unspecified BMI SNOMED Code(s): 266971709, 788128523 (11) COPD (chronic obstructive pulmonary disease) Current Visit: No Status: Chronic Qualifiers: Emphysema type: unspecified Qualified Code(s): J43.9 - Emphysema, unspecified SNOMED Code(s): 20226050 (12) Chest pain Current Visit: Yes Status: Resolved Etiology unclear. Patient unable to provide any information other than she is having chest pain. MSK vs. cardiac? EKG obtained. Troponins mildly elevated. Further workup and management per the primary team. Resolved. SNOMED Code(s): 79527084 (13) Abdominal pain Current Visit: Yes Status: Resolved Etiology: unclear. CT abdomen and pelvis on admission concerning for fecal impaction and stercoral colitis. Repeat CT 12/18 showed resolution of fecal impaction, but showed cystitis. Abdominal exam benign today. Urine culture positive for grossly mixed dyan. Resolved. Qualifiers: Abdominal location: generalized Qualified Code(s): R10.84 - Generalized abdominal pain SNOMED Code(s): 24595176 - Recommendations Recommendations: Post-op wound care and activity per the ortho-spine team. Hold additional antibiotics for now and observe. No further recommendations from the ID team. We will sign off. Please reconsult if needed. Consult Discharge Plan - Plan Referrals: Alex Steward MD [Primary Care Provider] -
[2018-12-23] MEDS: *HR* OxyCODONE Immed Rel 5 MG TABLET PO PRN (11:32)
[2018-12-23] MEDS ORDERED: Fluconazole 100 MG TABLET PO ONE (14:49)
--- NOTE | 2018-12-23 14:59 | Physician Discharge Referral ---
[facility] Referral Info Provider in Charge after Transfer: PCP Institutional Level of Care: Skilled - Diagnosis (1) Burst fracture of T12 vertebra Status: Acute (2) Hypothyroid Status: Chronic (3) COPD (chronic obstructive pulmonary disease) Status: Chronic (4) CKD (chronic kidney disease) stage 3, GFR 30-59 ml/min Status: Chronic (5) Diabetes mellitus Status: Chronic (6) UTI due to extended-spectrum beta lactamase (ESBL) producing Escherichia coli Status: Acute (7) Rib fracture Status: Acute (8) Constipation Status: Acute (9) Postoperative anemia due to acute blood loss Status: Acute - Transfer Medications Home Medications: Albuterol Sulfate [Ventolin Hfa] 2 puff IH Q4H PRN 07/22/17 [History] Levothyroxine Sodium [Synthroid] 137 mcg PO DAILY 07/22/17 [History] Simvastatin [Zocor] 40 mg PO HS 07/22/17 [History] Ipratropium/Albuterol Neb [Duoneb] 3 ml IH Q6HR PRN 04/05/18 [History] Famotidine [Pepcid] 40 mg PO DAILY 06/14/18 [History] Pioglitazone HCl 30 mg PO DAILY 06/14/18 [History] Venlafaxine HCl [Venlafaxine HCl ER] 150 mg PO DAILY 06/14/18 [History] Benztropine Mesylate 0.5 mg PO DAILY 09/24/18 [History] Lidocaine [Lidoderm] 1 patch TP DAILY 11/23/18 [History] Melatonin 5 mg PO HS 11/23/18 [History] Multivitamin with Minerals [One-A-Day Maximum Formula] 1 tab PO DAILY 11/23/18 [History] Insulin LISPRO [HumaLOG] 0 units SQ TIDWM 12/07/18 [History] Acetaminophen [Tylenol] 1,000 mg PO TID PRN 12/09/18 [History] Aripiprazole [Abilify] 15 mg PO DAILY 12/09/18 [History] Glimepiride [Amaryl] 1 mg PO DAILY 12/09/18 [History] MOM Conc [MILK OF MAGNESIA conc] 30 ml GTUBE DAILY 12/09/18 [History] Methyl Salicylate/Menth/Camph [Bengay Ultra Strength Cream] 1 appl TP AD 12/09/18 [History] Nicotine Patch [Nicoderm] 14 mg TP DAILY 12/09/18 [History] Quetiapine Fumarate [Seroquel] 25 mg PO DAILY 12/09/18 [History] Gabapentin [Neurontin] 400 mg PO TID #12 capsule 12/10/18 [Rx] Insulin Degludec [Tresiba Flextouch U-100] 20 unit SQ DAILY 30 Days insuln.pen 12/10/18 [Rx] Ertapenem [INVanz] 1,000 mg IVPB DAILY 12/16/18 [History] Tramadol HCl [Ultram] 50 mg PO Q4H PRN 12/16/18 [History] Allergies/Adverse Reactions: Allergy/AdvReac Type Severity Reaction Status Date / Time prednisone AdvReac See Verified 12/09/18 11:24 Comments - Respiratory Orders Smoking Cessation: Smoking cessation has been advised. For more information, call the [place] Tobacco Quit Line at 2-175-KDSW-NOW. - Advance Directives Code Status: Full Code - Rehabiliation Orders Rehab Orders: Evaluation for Physical Therapy, Evaluation for Occupational Therapy - Diet Orders No Concentrated Sweets, Cardiac CERTIFICATION: I certify that the transfer of the above named patient to an Extended Care Facility is necessary for the continuing treatment of the diagnosis listed. The above information is true and accurate reflection of patient's current condition. Confidential - Redisclosure prohibited without a patient's written consent.
[2018-12-23 17:56] VITALS: BP 115/62
== END 2018-12-23 18:30 | DRG 304 ==
LOC: EMEROOARM 17:23 → 3NENU 23:06 → SUATTDRO 23:06 → 3NENU 23:32
PROVIDERS: ADMIT Internal Medicine; ATTEND Internal Medicine

== ENCOUNTER 2019-04-27 11:59 | Inpatient (IN) ==
[2019-04-27] MEDS ORDERED: Naloxone 0.4 MG/ML INJ IVP PRN (16:03)
[2019-04-27] MEDS ORDERED: *HR* Dextrose 50 % in Water (Syg) 50 ML SYRINGE IVP PRN (16:09)
[2019-04-27] MEDS ORDERED: Dextrose Gel 15 GM/37.5 ML TUBE PO PRN (16:09)
[2019-04-27] MEDS ORDERED: D5% in Water 1,000 ML IVC PRN (16:09)
[2019-04-27] MEDS ORDERED: Ringers Solution, Lactated 1,000 ML IVC SCH (16:15)
[2019-04-27] MEDS ORDERED: Heparin 25,000 UNIT/250 ML D5W 25,000 UNIT/250 ML IV.SOLN IVC SCH (16:15)
[2019-04-27] MEDS ORDERED: Insulin LISPRO 300 UNITS/3 ML VIAL SQ SCH ×2 (16:30→21:30)
[2019-04-27 17:47] LABS: Basophils # 0.1 K/mcL (0.0-0.2); Basophils % 0.5 %; Eosinophils % 0.3 %; Hematocrit 34.3 % (35.3-44.9); Hemoglobin 10.9 g/dL (11.5-15.4); Immature Granulocytes % 0.4 % (0-4); Lymphocytes # 1.9 K/mcL (0.6-4.6); Mean Corpuscular HGB Conc 31.8 g/dL (31.6-35.5); Mean Corpuscular Hemoglobin 30.4 pg (28.0-33.3); Mean Corpuscular Volume 95.5 fL (83.0-100.0); Mean Platelet Volume 10.9 fL (9.4-12.4); Monocytes # 0.7 K/mcL (0.0-1.3); Monocytes % 5.4 %; Neutrophils # 10.5 K/mcL (1.6-8.9); Platelet Count 257 K/mcL (140-400); Red Blood Count 3.59 M/mcL (3.82-4.97); Red Cell Distribution Width 15.4 % (11.5-14.5); Segmented Neutrophils % 79.4 %; White Blood Count 13.2 K/mcL (4.3-11.1)
[2019-04-27 17:50] LABS: Prothrombin Time 11.9 Seconds (9.4-12.1)
[2019-04-27] MEDS ORDERED: *HR* Heparin 5,000 UNIT/ML VIAL IVP PRN ×2 (17:50)
[2019-04-27 18:06] LABS: Albumin 3.2 g/dL (3.5-5.7); Albumin/Globulin Ratio 1.1 (1.1-2.2); Bilirubin,Total 0.3 mg/dL (0.3-1.0); Calcium 8.8 mg/dL (8.6-10.3); Magnesium 1.8 mg/dL (1.6-2.6); Potassium 4.5 mEq/L (3.5-5.1); Total Protein 6.2 g/dL (6.4-8.9); Troponin I 0.09 ng/mL (< 0.04)
[2019-04-27] MEDS: Heparin 25,000 UNIT/250 ML D5W 25,000 UNIT/250 ML IV.SOLN IVC SCH (18:32)
[2019-04-27] MEDS ORDERED: Perflutren Lipid Microsphere 1.3 ML in 0.9 % Sodium Chloride 8.7 ML IVP ONE (20:41)
[2019-04-27] MEDS ORDERED: Insulin DETEMIR 100 UNIT/ML X5UNITS SQ SCH (21:00)
[2019-04-28] MEDS: Insulin LISPRO 300 UNITS/3 ML VIAL SQ SCH ×3 (05:41→17:10)
[2019-04-28 06:58] LABS: Hematocrit 27.9 % (35.3-44.9); Mean Corpuscular HGB Conc 32.3 g/dL (31.6-35.5); Mean Corpuscular Hemoglobin 29.9 pg (28.0-33.3); Mean Corpuscular Volume 92.7 fL (83.0-100.0); Mean Platelet Volume 9.6 fL (9.4-12.4); Platelet Count 264 K/mcL (140-400); Red Blood Count 3.01 M/mcL (3.82-4.97); Red Cell Distribution Width 15.2 % (11.5-14.5); White Blood Count 9.6 K/mcL (4.3-11.1)
[2019-04-28 07:20] LABS: Albumin 2.9 g/dL (3.5-5.7); Bilirubin,Total 0.4 mg/dL (0.3-1.0); Globulin 2.9 g/dL (2.4-3.5); Potassium 3.5 mEq/L (3.5-5.1); Total Protein 5.8 g/dL (6.4-8.9)
[2019-04-28 07:24] LABS: Troponin I 0.07 ng/mL (< 0.04)
[2019-04-28] MEDS ORDERED: Ipratropium/Albuterol Neb 3 ML IH PRN (07:25)
[2019-04-28] MEDS ORDERED: Ringers Solution, Lactated 1,000 ML IVC SCH (07:28)
[2019-04-28 07:49] LABS: Hemoglobin 9.8 g/dL (11.5-15.4)
[2019-04-28] MEDS: MOM Conc 10 ML UD.LIQ GTUBE SCH (08:52)
[2019-04-28] MEDS: Venlafaxine XR (24 HR) 75 MG CAP.ER.24H PO SCH ×2 (08:53→22:11)
[2019-04-28] MEDS: Multivit/Ca/Min/Fe/FA 1 TAB TABLET PO SCH (08:53)
[2019-04-28] MEDS ORDERED: Methyl Salicylate/Menthol 28 GM TUBE TP SCH (09:00)
[2019-04-28] MEDS: Diltiazem SR (12hr) 60 MG CAPSULE PO SCH ×2 (12:07→22:11)
[2019-04-28] MEDS: levoFLOXacin 750 MG/150 ML 750 MG/150 ML BAG IVPB SCH (17:10)
[2019-04-28] MEDS: Heparin 25,000 UNIT/250 ML D5W 25,000 UNIT/250 ML IV.SOLN IVC SCH (17:31)
[2019-04-28] MEDS ORDERED: Doxycycline 100 MG in 0.9 % Sodium Chloride Mini Bag 100 ML IVPB SCH (18:00)
[2019-04-28 18:31] LABS: Adenovirus Not Detected (Not Detect); Bordetella Pertussis Not Detected (Not Detect); Chlamydophila pneumoniae Not Detected (Not Detect); Coronavirus 229E Not Detected (Not Detect); Coronavirus HKU1 Not Detected (Not Detect); Coronavirus NL63 Not Detected (Not Detect); Coronavirus OC43 Not Detected (Not Detect); Human Metapneumovirus Not Detected (Not Detect); Human Rhinovirus/Enterovirus Not Detected (Not Detect); Influenza A Subtype 2009 H1 Not Detected (Not Detect); Influenza A Untypeable Not Detected (Not Detect); Influenza B Not Detected (Not Detect); Mycoplasma pneumoniae Not Detected (Not Detect); Parainfluenza Virus 1 Not Detected (Not Detect); Parainfluenza Virus 2 Not Detected (Not Detect); Parainfluenza Virus 3 Not Detected (Not Detect); Parainfluenza Virus 4 Not Detected (Not Detect); Respiratory Syncytial Virus Not Detected (Not Detect)
[2019-04-28] MEDS ORDERED: Piperacillin/Tazobactam 3.375 GM in 0.9 % Sodium Chloride Mini Bag 100 ML IVPB SCH ×2 (20:00)
[2019-04-28] MEDS ORDERED: cefTRIAXone 1,000 MG in Water for inj. (sterile) 10 ML IVP SCH (21:00)
[2019-04-28] MEDS: Melatonin 3 MG TABLET PO SCH (22:11)
[2019-04-28] MEDS: Mirtazapine 15 MG TABLET PO SCH (22:11)
[2019-04-28] MEDS: Famotidine 20 MG TABLET PO SCH (22:11)
[2019-04-28] MEDS: Insulin DETEMIR 100 UNIT/ML X5UNITS SQ SCH (22:12)
[2019-04-28] MEDS: Piperacillin/Tazobactam 3.375 GM in 0.9 % Sodium Chloride Mini Bag 100 ML IVPB SCH (22:12)
[2019-04-29] MEDS: Insulin LISPRO 300 UNITS/3 ML VIAL SQ SCH ×5 (00:37→23:28)
[2019-04-29 04:49] LABS: Basophils # 0.1 K/mcL (0.0-0.2); Basophils % 0.7 %; Eosinophils % 0.5 %; Hematocrit 29.3 % (35.3-44.9); Hemoglobin 9.9 g/dL (11.5-15.4); Immature Granulocytes % 0.4 % (0-4); Lymphocytes # 2.1 K/mcL (0.6-4.6); Lymphocytes % 26.4 %; Mean Corpuscular HGB Conc 33.8 g/dL (31.6-35.5); Mean Corpuscular Hemoglobin 30.6 pg (28.0-33.3); Mean Corpuscular Volume 90.4 fL (83.0-100.0); Mean Platelet Volume 9.7 fL (9.4-12.4); Monocytes # 0.9 K/mcL (0.0-1.3); Monocytes % 11.3 %; Neutrophils # 4.9 K/mcL (1.6-8.9); Platelet Count 264 K/mcL (140-400); Red Blood Count 3.24 M/mcL (3.82-4.97); Red Cell Distribution Width 15.6 % (11.5-14.5); Segmented Neutrophils % 60.7 %; White Blood Count 8.1 K/mcL (4.3-11.1)
[2019-04-29 05:09] LABS: Potassium 3.5 mEq/L (3.5-5.1)
[2019-04-29] MEDS: Piperacillin/Tazobactam 3.375 GM in 0.9 % Sodium Chloride Mini Bag 100 ML IVPB SCH ×2 (05:48→18:26)
[2019-04-29] MEDS ORDERED: *HR* HYDROcodone/Acet 5/325 mg TABLET PO PRN (09:13)
[2019-04-29] MEDS ORDERED: Naloxone 0.4 MG/ML INJ IVP PRN ×2 (09:13→09:14)
[2019-04-29] MEDS ORDERED: Acetaminophen 325 MG TABLET PO PRN (09:13)
[2019-04-29] MEDS: Methyl Salicylate/Menthol 57 APPL/57 GM TUBE TP SCH (09:48)
[2019-04-29] MEDS: Venlafaxine XR (24 HR) 75 MG CAP.ER.24H PO SCH ×2 (10:09→19:40)
[2019-04-29] MEDS: Diltiazem SR (12hr) 60 MG CAPSULE PO SCH ×2 (10:09→19:40)
[2019-04-29] MEDS: Multivit/Ca/Min/Fe/FA 1 TAB TABLET PO SCH (10:10)
[2019-04-29] MEDS: MOM Conc 10 ML UD.LIQ GTUBE SCH (10:10)
[2019-04-29] MEDS ORDERED: Ondansetron 4 MG/2 ML VIAL IVP PRN (11:53)
[2019-04-29] MEDS ORDERED: Acetaminophen 650 MG RECTAL SUPP RC PRN (11:54)
[2019-04-29] MEDS: Heparin 25,000 UNIT/250 ML D5W 25,000 UNIT/250 ML IV.SOLN IVC SCH (18:23)
[2019-04-29] MEDS: Melatonin 3 MG TABLET PO SCH (19:40)
[2019-04-29] MEDS: Famotidine 20 MG TABLET PO SCH (19:40)
[2019-04-29] MEDS: Mirtazapine 15 MG TABLET PO SCH (19:41)
[2019-04-29] MEDS: Ondansetron 4 MG/2 ML VIAL IVP PRN (21:26)
[2019-04-29] MEDS: Insulin DETEMIR 100 UNIT/ML X5UNITS SQ SCH (23:29)
[2019-04-30] MEDS ORDERED: Insulin Human Regular 10 UNIT in 0.9 % Sodium Chloride 10 ML IV ONE (00:35)
[2019-04-30 00:36] LABS: Basophils % 0.7 %; Eosinophils # 0.1 K/mcL (0.0-0.6); Eosinophils % 0.9 %; Hematocrit 27.2 % (35.3-44.9); Hemoglobin 8.7 g/dL (11.5-15.4); Immature Granulocytes % 0.5 % (0-4); Lymphocytes # 1.2 K/mcL (0.6-4.6); Lymphocytes % 19.9 %; Mean Corpuscular Hemoglobin 30.4 pg (28.0-33.3); Mean Corpuscular Volume 95.1 fL (83.0-100.0); Mean Platelet Volume 10.3 fL (9.4-12.4); Monocytes # 0.5 K/mcL (0.0-1.3); Monocytes % 8.1 %; Platelet Count 179 K/mcL (140-400); Red Blood Count 2.86 M/mcL (3.82-4.97); Segmented Neutrophils % 69.9 %; White Blood Count 5.8 K/mcL (4.3-11.1)
[2019-04-30 01:02] LABS: Calcium 8.1 mg/dL (8.6-10.3)
[2019-04-30] MEDS ORDERED: D5% in 0.45% NACL w KCl 20 MEQ/1,000 ML MLS IVC PRN (01:14)
[2019-04-30] MEDS ORDERED: Insulin Regular, Human 100 UNIT/ML IV PRN ×2 (01:14)
[2019-04-30] MEDS ORDERED: Insulin Regular, Human 100 UNIT/ML IV ONE (01:14)
[2019-04-30] MEDS ORDERED: *HR* Dextrose 50 % in Water (Syg) 50 ML SYRINGE IVP PRN (01:14)
[2019-04-30] MEDS ORDERED: D5% in 0.45% NACL 1,000 ML IVC PRN (01:14)
[2019-04-30] MEDS: 0.45 % Sodium Chloride w/KCl 20 MEQ/1,000 ML MLS IVC SCH ×9 (01:40→08:13)
[2019-04-30] MEDS: Insulin Human Regular 100 UNIT in 0.9 % Sodium Chloride 100 ML IVC SCH (01:40)
[2019-04-30] MEDS: 0.9 % Sodium Chloride 1,000 ML IVC SCH ×9 (03:11→08:13)
[2019-04-30] MEDS: Insulin LISPRO 300 UNITS/3 ML VIAL SQ SCH ×3 (03:30→16:23)
[2019-04-30 04:21] LABS: VBG HCO3 24 mEq/L (21-27); VBG PCO2 49 mmHg (41-51); VBG PH 7.29 pH Units (7.32-7.42); VBG PO2 212 mmHg (25-50)
[2019-04-30 04:35] LABS: Calcium 8.3 mg/dL (8.6-10.3); Potassium 3.4 mEq/L (3.5-5.1)
[2019-04-30] MEDS ORDERED: Insulin DETEMIR 100 UNIT/ML X5UNITS SQ ONE (05:49)
[2019-04-30] MEDS: Piperacillin/Tazobactam 3.375 GM in 0.9 % Sodium Chloride Mini Bag 100 ML IVPB SCH ×2 (06:07→18:03)
[2019-04-30] MEDS: Methyl Salicylate/Menthol 57 APPL/57 GM TUBE TP SCH (08:00)
[2019-04-30 10:40] LABS: VBG HCO3 24 mEq/L (21-27); VBG PCO2 45 mmHg (41-51); VBG PH 7.32 pH Units (7.32-7.42); VBG PO2 205 mmHg (25-50)
[2019-04-30 10:51] LABS: Calcium 7.4 mg/dL (8.6-10.3); Potassium 3.6 mEq/L (3.5-5.1)
[2019-04-30] MEDS: Venlafaxine XR (24 HR) 75 MG CAP.ER.24H PO SCH ×2 (11:02→19:32)
[2019-04-30] MEDS: MOM Conc 10 ML UD.LIQ GTUBE SCH (11:02)
[2019-04-30] MEDS: Diltiazem SR (12hr) 60 MG CAPSULE PO SCH ×2 (11:02→19:29)
[2019-04-30] MEDS: Multivit/Ca/Min/Fe/FA 1 TAB TABLET PO SCH (11:02)
[2019-04-30 14:24] LABS: Hematocrit 27.8 % (35.3-44.9); Hemoglobin 8.9 g/dL (11.5-15.4)
[2019-04-30] MEDS: levoFLOXacin 750 MG/150 ML 750 MG/150 ML BAG IVPB SCH (16:10)
[2019-04-30] MEDS: Heparin 25,000 UNIT/250 ML D5W 25,000 UNIT/250 ML IV.SOLN IVC SCH (18:05)
[2019-04-30] MEDS: Famotidine 20 MG TABLET PO SCH (19:32)
[2019-04-30] MEDS: Mirtazapine 15 MG TABLET PO SCH (19:32)
[2019-04-30] MEDS: Melatonin 3 MG TABLET PO SCH (19:32)
[2019-04-30] MEDS: Insulin DETEMIR 100 UNIT/ML X5UNITS SQ SCH (23:48)
[2019-05-01 01:45] LABS: Basophils # 0.1 K/mcL (0.0-0.2); Basophils % 0.9 %; Eosinophils # 0.8 K/mcL (0.0-0.6); Eosinophils % 13.4 %; Hematocrit 30.7 % (35.3-44.9); Hemoglobin 9.5 g/dL (11.5-15.4); Immature Granulocytes % 0.9 % (0-4); Lymphocytes # 1.6 K/mcL (0.6-4.6); Lymphocytes % 27.7 %; Mean Corpuscular HGB Conc 30.9 g/dL (31.6-35.5); Mean Corpuscular Hemoglobin 30.1 pg (28.0-33.3); Mean Corpuscular Volume 97.2 fL (83.0-100.0); Mean Platelet Volume 10.5 fL (9.4-12.4); Monocytes # 0.5 K/mcL (0.0-1.3); Neutrophils # 2.9 K/mcL (1.6-8.9); Platelet Count 172 K/mcL (140-400); Red Blood Count 3.16 M/mcL (3.82-4.97); Red Cell Distribution Width 15.8 % (11.5-14.5); Segmented Neutrophils % 49.1 %; White Blood Count 5.8 K/mcL (4.3-11.1)
[2019-05-01 02:10] LABS: Calcium 8.4 mg/dL (8.6-10.3); Potassium 4.3 mEq/L (3.5-5.1)
[2019-05-01] MEDS: Insulin DETEMIR 100 UNIT/ML X5UNITS SQ SCH ×3 (02:18→21:23)
[2019-05-01] MEDS: Ondansetron 4 MG/2 ML VIAL IVP PRN (02:19)
[2019-05-01] MEDS: Insulin Human Regular 100 UNIT in 0.9 % Sodium Chloride 100 ML IVC SCH (02:30)
[2019-05-01] MEDS: Piperacillin/Tazobactam 3.375 GM in 0.9 % Sodium Chloride Mini Bag 100 ML IVPB SCH ×3 (05:05→21:54)
[2019-05-01] MEDS: Heparin 25,000 UNIT/250 ML D5W 25,000 UNIT/250 ML IV.SOLN IVC SCH (07:42)
[2019-05-01] MEDS: Insulin LISPRO 300 UNITS/3 ML VIAL SQ SCH ×3 (08:44→16:18)
[2019-05-01] MEDS: Methyl Salicylate/Menthol 57 APPL/57 GM TUBE TP SCH (08:53)
[2019-05-01] MEDS: Diltiazem SR (12hr) 60 MG CAPSULE PO SCH ×2 (08:54→21:49)
[2019-05-01] MEDS: Venlafaxine XR (24 HR) 75 MG CAP.ER.24H PO SCH ×3 (08:54→21:49)
[2019-05-01] MEDS: Multivit/Ca/Min/Fe/FA 1 TAB TABLET PO SCH ×2 (08:54→09:11)
[2019-05-01] MEDS: MOM Conc 10 ML UD.LIQ GTUBE SCH (08:54)
[2019-05-01] MEDS: Levothyroxine Sodium 100 MCG VIAL IVP SCH (11:35)
[2019-05-01] MEDS ORDERED: *HR* Enoxaparin 100 MG/ML SYRINGE SQ SCH (12:00)
[2019-05-01] MEDS: Melatonin 3 MG TABLET PO SCH (21:49)
[2019-05-01] MEDS: Mirtazapine 15 MG TABLET PO SCH (21:49)
[2019-05-01] MEDS: Famotidine 20 MG TABLET PO SCH (21:50)
[2019-05-02] MEDS: Dextrose Gel 15 GM/37.5 ML TUBE PO PRN ×2 (00:03→06:48)
[2019-05-02] MEDS: Piperacillin/Tazobactam 3.375 GM in 0.9 % Sodium Chloride Mini Bag 100 ML IVPB SCH ×3 (05:42→21:17)
[2019-05-02 06:25] LABS: Calcium 8.6 mg/dL (8.6-10.3)
[2019-05-02] MEDS: MOM Conc 10 ML UD.LIQ GTUBE SCH (07:41)
[2019-05-02] MEDS: Multivit/Ca/Min/Fe/FA 1 TAB TABLET PO SCH (07:42)
[2019-05-02] MEDS: Venlafaxine XR (24 HR) 75 MG CAP.ER.24H PO SCH ×2 (07:42→20:47)
[2019-05-02] MEDS: Diltiazem SR (12hr) 60 MG CAPSULE PO SCH (07:42)
[2019-05-02] MEDS: Levothyroxine Sodium 100 MCG VIAL IVP SCH (07:42)
[2019-05-02] MEDS: Methyl Salicylate/Menthol 57 APPL/57 GM TUBE TP SCH (07:43)
[2019-05-02] MEDS: Insulin LISPRO 300 UNITS/3 ML VIAL SQ SCH ×3 (08:05→16:39)
[2019-05-02 09:11] LABS: Basophils % 0.2 %; Eosinophils # 0.5 K/mcL (0.0-0.6); Eosinophils % 10.7 %; Hemoglobin 9.4 g/dL (11.5-15.4); Immature Granulocytes % 0.9 % (0-4); Lymphocytes # 1.3 K/mcL (0.6-4.6); Lymphocytes % 29.6 %; Mean Corpuscular HGB Conc 31.3 g/dL (31.6-35.5); Mean Corpuscular Hemoglobin 29.7 pg (28.0-33.3); Mean Corpuscular Volume 94.9 fL (83.0-100.0); Mean Platelet Volume 10.9 fL (9.4-12.4); Monocytes # 0.3 K/mcL (0.0-1.3); Monocytes % 7.6 %; Neutrophils # 2.2 K/mcL (1.6-8.9); Platelet Count 146 K/mcL (140-400); Red Blood Count 3.16 M/mcL (3.82-4.97); Red Cell Distribution Width 15.9 % (11.5-14.5); White Blood Count 4.2 K/mcL (4.3-11.1)
[2019-05-02] MEDS ORDERED: Vancomycin 500 MG in 0.9 % Sodium Chloride Mini Bag 100 ML IVPB ONE (09:14)
[2019-05-02] MEDS: Insulin DETEMIR 100 UNIT/ML X5UNITS SQ SCH (10:19)
[2019-05-02] MEDS: *HR* HYDROmorphone (PF) 1 MG/ML SYRINGE IVP PRN ×2 (10:34→21:01)
[2019-05-02] MEDS: *HR* Enoxaparin 100 MG/ML SYRINGE SQ SCH ×2 (12:02→20:56)
[2019-05-02] MEDS: Famotidine 20 MG TABLET PO SCH (20:51)
[2019-05-02] MEDS: Melatonin 3 MG TABLET PO SCH (20:51)
[2019-05-02] MEDS: Mirtazapine 15 MG TABLET PO SCH (20:53)
[2019-05-02] MEDS ORDERED: Insulin DETEMIR 100 UNIT/ML X5UNITS SQ SCH (21:00)
[2019-05-03] MEDS: Piperacillin/Tazobactam 3.375 GM in 0.9 % Sodium Chloride Mini Bag 100 ML IVPB SCH ×2 (05:20→13:54)
[2019-05-03 05:25] LABS: Basophils % 0.4 %; Eosinophils # 0.6 K/mcL (0.0-0.6); Eosinophils % 11.8 %; Hemoglobin 9.8 g/dL (11.5-15.4); Immature Granulocytes % 0.8 % (0-4); Lymphocytes % 27.9 %; Mean Corpuscular HGB Conc 32.7 g/dL (31.6-35.5); Mean Corpuscular Hemoglobin 30.3 pg (28.0-33.3); Mean Corpuscular Volume 92.9 fL (83.0-100.0); Mean Platelet Volume 10.7 fL (9.4-12.4); Monocytes # 0.3 K/mcL (0.0-1.3); Monocytes % 6.6 %; Neutrophils # 2.7 K/mcL (1.6-8.9); Platelet Count 141 K/mcL (140-400); Red Blood Count 3.23 M/mcL (3.82-4.97); Segmented Neutrophils % 52.5 %; White Blood Count 5.2 K/mcL (4.3-11.1)
[2019-05-03 05:28] LABS: Lymphocytes # 1.5 K/mcL (0.6-4.6)
[2019-05-03 05:45] LABS: Calcium 8.5 mg/dL (8.6-10.3); Potassium 4.1 mEq/L (3.5-5.1)
[2019-05-03 06:00] LABS: Platelet Estimate Slight Decrease (Normal)
[2019-05-03] MEDS ORDERED: Bacitracin 50,000 UNIT, Polymyxin B Sulfate 500,000 UNIT, Sodium Chloride IRRigation 1,... IR ONE (06:00)
[2019-05-03] MEDS: *HR* Enoxaparin 100 MG/ML SYRINGE SQ SCH (07:36)
[2019-05-03] MEDS: Insulin DETEMIR 100 UNIT/ML X5UNITS SQ SCH (07:36)
[2019-05-03] MEDS: Venlafaxine XR (24 HR) 75 MG CAP.ER.24H PO SCH (07:36)
[2019-05-03] MEDS: Levothyroxine Sodium 100 MCG VIAL IVP SCH (07:36)
[2019-05-03] MEDS: Multivit/Ca/Min/Fe/FA 1 TAB TABLET PO SCH (07:36)
[2019-05-03] MEDS: MOM Conc 10 ML UD.LIQ GTUBE SCH (07:36)
[2019-05-03] MEDS: Methyl Salicylate/Menthol 57 APPL/57 GM TUBE TP SCH (07:37)
[2019-05-03] MEDS: Insulin LISPRO 300 UNITS/3 ML VIAL SQ SCH ×2 (07:37→11:07)
[2019-05-03] MEDS ORDERED: Vancomycin 500 MG in 0.9 % Sodium Chloride Mini Bag 100 ML IVPB ONE (08:18)
[2019-05-03] MEDS ORDERED: Dexamethasone 4 MG/ML VIAL ONE ×2 (09:55→12:47)
[2019-05-03] MEDS ORDERED: Ondansetron 4 MG/2 ML VIAL ONE ×2 (09:55→12:47)
[2019-05-03] MEDS ORDERED: *HR* FentaNYL (PF) 100 MCG/2 ML VIAL ONE ×3 (09:55→17:35)
[2019-05-03] MEDS ORDERED: *HR* Rocuronium Bromide 50 MG/5 ML VIAL ONE (09:55)
[2019-05-03] MEDS ORDERED: Lidocaine -MPF 2% 2 ML VIAL ONE ×3 (09:55→19:02)
[2019-05-03] MEDS ORDERED: *HR* Propofol 200 MG/20 ML VIAL IVP ONE ×2 (09:55→12:44)
[2019-05-03] MEDS ORDERED: Lidocaine HCL 4 ML Topical Solution (Laryng-O-Jet Kit Sterile Pak) TP ONE (15:26)
[2019-05-03] MEDS ORDERED: Acetaminophen IV 1,000 MG/100 ML INFUS..BTL ONE (16:21)
[2019-05-03] MEDS ORDERED: *HR* PHENYLEPHRINE 1,000 MCG/10 ML SYRINGE IVP ONE ×3 (16:53→18:11)
[2019-05-03] MEDS ORDERED: *HR* HYDROMORPHONE 2 MG/ML VIAL ONE (17:35)
[2019-05-03] MEDS ORDERED: *HR* Succinylcholine 200 MG/10 ML VIAL IVP ONE (18:11)
[2019-05-03] MEDS ORDERED: D5% in 0.45% NACL 1,000 ML IVC ONE (19:31)
[2019-05-03] MEDS ORDERED: D5% in 0.45% NACL 1,000 ML IVC SCH (20:00)
[2019-05-03] MEDS ORDERED: Naloxone 0.4 MG/ML INJ IVP PRN (20:38)
[2019-05-03] MEDS ORDERED: Ondansetron 4 MG/2 ML VIAL IVP PRN (20:38)
[2019-05-03 21:17] LABS: ABG Base Excess 0 mEq/L (-2 to 3); ABG HCO3 27 mEq/L (21-27); ABG Oxygen Saturation 98 % (95-98); ABG PCO2 55 mmHg (35-45); ABG PH 7.29 pH Units (7.32-7.45); ABG PO2 120 mmHg (85-104); ABG TCO2 28 mEq/L (20-26)
[2019-05-04] MEDS: Ringers Solution, Lactated 1,000 ML IVC SCH ×2 (01:33→21:22)
[2019-05-04] MEDS: Piperacillin/Tazobactam 3.375 GM in 0.9 % Sodium Chloride Mini Bag 100 ML IVPB SCH ×3 (04:23→21:11)
[2019-05-04 06:56] LABS: Hematocrit 30.2 % (35.3-44.9); Hemoglobin 9.7 g/dL (11.5-15.4); Mean Corpuscular HGB Conc 32.1 g/dL (31.6-35.5); Mean Corpuscular Hemoglobin 30.1 pg (28.0-33.3); Mean Corpuscular Volume 93.8 fL (83.0-100.0); Mean Platelet Volume 10.3 fL (9.4-12.4); Platelet Count 159 K/mcL (140-400); Red Blood Count 3.22 M/mcL (3.82-4.97); Red Cell Distribution Width 16.3 % (11.5-14.5); White Blood Count 8.7 K/mcL (4.3-11.1)
[2019-05-04 07:16] LABS: Calcium 8.2 mg/dL (8.6-10.3); Potassium 4.4 mEq/L (3.5-5.1)
[2019-05-04] MEDS ORDERED: INSULIN DEGLUDEC 50 UNIT SQ SCH (09:00)
[2019-05-04] MEDS: Insulin DETEMIR 100 UNIT/ML X5UNITS SQ SCH (09:07)
[2019-05-04] MEDS: *HR* OxyCODONE Immed Rel 5 MG TABLET PO PRN ×2 (11:40→21:15)
[2019-05-04] MEDS: *HR* Pioglitazone 30 MG TABLET PO SCH (13:07)
[2019-05-04] MEDS: *HR* Glimepiride 2 MG TABLET PO SCH (13:07)
[2019-05-05] MEDS: Piperacillin/Tazobactam 3.375 GM in 0.9 % Sodium Chloride Mini Bag 100 ML IVPB SCH ×3 (04:20→19:53)
[2019-05-05] MEDS: *HR* OxyCODONE Immed Rel 5 MG TABLET PO PRN ×3 (04:20→13:11)
[2019-05-05 06:25] LABS: Basophils % 0.4 %; Eosinophils # 0.4 K/mcL (0.0-0.6); Eosinophils % 4.5 %; Hematocrit 25.9 % (35.3-44.9); Hemoglobin 8.3 g/dL (11.5-15.4); Immature Granulocytes % 1.1 % (0-4); Lymphocytes # 2.1 K/mcL (0.6-4.6); Mean Corpuscular Hemoglobin 30.2 pg (28.0-33.3); Mean Corpuscular Volume 94.2 fL (83.0-100.0); Mean Platelet Volume 10.4 fL (9.4-12.4); Monocytes # 1.3 K/mcL (0.0-1.3); Monocytes % 14.5 %; Neutrophils # 5.1 K/mcL (1.6-8.9); Platelet Count 170 K/mcL (140-400); Red Blood Count 2.75 M/mcL (3.82-4.97); Red Cell Distribution Width 16.6 % (11.5-14.5); Segmented Neutrophils % 56.5 %; White Blood Count 9.1 K/mcL (4.3-11.1)
[2019-05-05 06:45] LABS: Calcium 8.1 mg/dL (8.6-10.3); Potassium 3.8 mEq/L (3.5-5.1)
[2019-05-05 06:55] LABS: Platelet Estimate Normal (Normal); Reactive Lymphocytes Present (Not Present)
[2019-05-05] MEDS: Ringers Solution, Lactated 1,000 ML IVC SCH ×2 (08:01→19:37)
[2019-05-05] MEDS: *HR* Glimepiride 2 MG TABLET PO SCH (08:02)
[2019-05-05] MEDS: Insulin DETEMIR 100 UNIT/ML X5UNITS SQ SCH (08:03)
[2019-05-05] MEDS: *HR* Pioglitazone 30 MG TABLET PO SCH (08:03)
[2019-05-05 13:50] LABS: Hemoglobin 8.4 g/dL (11.5-15.4)
[2019-05-06] MEDS: Piperacillin/Tazobactam 3.375 GM in 0.9 % Sodium Chloride Mini Bag 100 ML IVPB SCH ×4 (04:25→21:16)
[2019-05-06 05:42] LABS: Basophils % 0.1 %; Eosinophils # 0.2 K/mcL (0.0-0.6); Hematocrit 20.5 % (35.3-44.9); Immature Granulocytes % 1.9 % (0-4); Lymphocytes # 2.5 K/mcL (0.6-4.6); Lymphocytes % 35.2 %; Mean Corpuscular HGB Conc 32.7 g/dL (31.6-35.5); Mean Corpuscular Hemoglobin 30.5 pg (28.0-33.3); Mean Corpuscular Volume 93.2 fL (83.0-100.0); Mean Platelet Volume 9.9 fL (9.4-12.4); Monocytes % 13.6 %; Neutrophils # 3.3 K/mcL (1.6-8.9); Platelet Count 158 K/mcL (140-400); Red Cell Distribution Width 16.8 % (11.5-14.5); Segmented Neutrophils % 46.2 %; White Blood Count 7.2 K/mcL (4.3-11.1)
[2019-05-06 05:46] LABS: Hemoglobin 6.7 g/dL (11.5-15.4)
[2019-05-06] MEDS ORDERED: *HR* Enoxaparin 40 MG/0.4 ML SYRINGE SQ SCH (06:00)
[2019-05-06 06:03] LABS: Calcium 7.8 mg/dL (8.6-10.3); Potassium 3.5 mEq/L (3.5-5.1)
[2019-05-06 06:31] LABS: Hypochromasia Present (Not Present); Platelet Estimate Normal (Normal); Polychromasia 1+ (Not Present); Reactive Lymphocytes Present (Not Present)
[2019-05-06 10:26] LABS: Hematocrit 22.2 % (35.3-44.9); Hemoglobin 7.4 g/dL (11.5-15.4)
[2019-05-06] MEDS: *HR* Glimepiride 2 MG TABLET PO SCH (10:48)
[2019-05-06] MEDS: *HR* Pioglitazone 30 MG TABLET PO SCH (10:48)
[2019-05-06] MEDS: Insulin DETEMIR 100 UNIT/ML X5UNITS SQ SCH (10:48)
[2019-05-06 16:33] LABS: Hematocrit 25.2 % (35.3-44.9); Hemoglobin 8.6 g/dL (11.5-15.4)
[2019-05-06] MEDS ORDERED: Insulin DETEMIR 100 UNIT/ML X5UNITS SQ ONE (16:34)
[2019-05-06] MEDS ORDERED: 0.9 % Sodium Chloride 250 ML ONE ×2 (16:58→23:57)
[2019-05-06] MEDS: Ringers Solution, Lactated 1,000 ML IVC SCH ×4 (19:31→23:10)
[2019-05-06] MEDS: Insulin LISPRO 300 UNITS/3 ML VIAL SQ SCH ×2 (19:31→21:15)
[2019-05-06] MEDS ORDERED: D5% in Water 1,000 ML IVC PRN (20:58)
[2019-05-06] MEDS ORDERED: Dextrose Gel 15 GM/37.5 ML TUBE PO PRN ×2 (20:58)
[2019-05-06 22:48] LABS: Hematocrit 24.2 % (35.3-44.9); Hemoglobin 8.5 g/dL (11.5-15.4)
[2019-05-07] MEDS: Piperacillin/Tazobactam 3.375 GM in 0.9 % Sodium Chloride Mini Bag 100 ML IVPB SCH ×3 (04:16→19:49)
[2019-05-07 04:38] LABS: Calcium 8.2 mg/dL (8.6-10.3); Potassium 3.5 mEq/L (3.5-5.1)
[2019-05-07] MEDS: *HR* Dextrose 50 % in Water (Syg) 50 ML SYRINGE IVP PRN ×2 (04:52→05:47)
[2019-05-07 05:43] LABS: Basophils # 0.1 K/mcL (0.0-0.2); Basophils % 0.6 %; Eosinophils # 0.4 K/mcL (0.0-0.6); Eosinophils % 4.5 %; Hematocrit 28.1 % (35.3-44.9); Hemoglobin 9.6 g/dL (11.5-15.4); Immature Granulocytes % 1.7 % (0-4); Lymphocytes # 3.1 K/mcL (0.6-4.6); Lymphocytes % 36.4 %; Mean Corpuscular HGB Conc 34.2 g/dL (31.6-35.5); Mean Corpuscular Hemoglobin 29.5 pg (28.0-33.3); Mean Corpuscular Volume 86.5 fL (83.0-100.0); Mean Platelet Volume 10.4 fL (9.4-12.4); Monocytes # 1.2 K/mcL (0.0-1.3); Neutrophils # 3.6 K/mcL (1.6-8.9); Platelet Count 197 K/mcL (140-400); Red Blood Count 3.25 M/mcL (3.82-4.97); Red Cell Distribution Width 18.1 % (11.5-14.5); Segmented Neutrophils % 42.8 %; White Blood Count 8.4 K/mcL (4.3-11.1)
[2019-05-07 06:55] LABS: Platelet Estimate Normal (Normal)
[2019-05-07 06:56] LABS: Anisocytosis 1+ (Not Present); Polychromasia 1+ (Not Present); Reactive Lymphocytes Present (Not Present)
[2019-05-07] MEDS: Insulin LISPRO 300 UNITS/3 ML VIAL SQ SCH ×4 (07:48→22:54)
[2019-05-07] MEDS: *HR* Pioglitazone 30 MG TABLET PO SCH (07:48)
[2019-05-07] MEDS: *HR* Glimepiride 2 MG TABLET PO SCH (07:48)
[2019-05-07 10:22] LABS: Hematocrit 24.7 % (35.3-44.9); Hemoglobin 8.3 g/dL (11.5-15.4)
[2019-05-07 16:52] LABS: Hemoglobin 9.4 g/dL (11.5-15.4)
[2019-05-07] MEDS: Ringers Solution, Lactated 1,000 ML IVC SCH (19:51)
[2019-05-07 23:00] LABS: Hematocrit 30.1 % (35.3-44.9); Hemoglobin 10.2 g/dL (11.5-15.4)
[2019-05-08 01:57] LABS: Potassium 4.8 mEq/L (3.5-5.1)
[2019-05-08 02:33] LABS: Basophils # 0.1 K/mcL (0.0-0.2); Basophils % 0.6 %; Eosinophils # 0.4 K/mcL (0.0-0.6); Eosinophils % 4.2 %; Hematocrit 28.5 % (35.3-44.9); Hemoglobin 9.8 g/dL (11.5-15.4); Immature Granulocytes % 1.4 % (0-4); Immature Platelets 1.5 % (1.1-6.1); Lymphocytes # 2.2 K/mcL (0.6-4.6); Lymphocytes % 24.8 %; Mean Corpuscular HGB Conc 34.4 g/dL (31.6-35.5); Mean Corpuscular Hemoglobin 30.2 pg (28.0-33.3); Mean Corpuscular Volume 87.7 fL (83.0-100.0); Mean Platelet Volume 10.1 fL (9.4-12.4); Monocytes % 11.1 %; Nucleated Red Blood Cells 0.2 /100 WBC (0); Platelet Count 222 K/mcL (140-400); Red Blood Count 3.25 M/mcL (3.82-4.97); Segmented Neutrophils % 57.9 %; White Blood Count 8.7 K/mcL (4.3-11.1)
[2019-05-08 02:34] LABS: Platelet Estimate Normal (Normal); Polychromasia 1+ (Not Present); Reactive Lymphocytes Present (Not Present)
[2019-05-08] MEDS: Piperacillin/Tazobactam 3.375 GM in 0.9 % Sodium Chloride Mini Bag 100 ML IVPB SCH ×3 (04:13→19:58)
[2019-05-08] MEDS: Ringers Solution, Lactated 1,000 ML IVC SCH (05:42)
[2019-05-08] MEDS: Insulin LISPRO 300 UNITS/3 ML VIAL SQ SCH ×4 (08:03→20:03)
[2019-05-08] MEDS: *HR* Pioglitazone 30 MG TABLET PO SCH (08:04)
[2019-05-08] MEDS ORDERED: *HR* LORazepam 2 MG/ML VIAL IVP PRN (15:47)
[2019-05-08] MEDS: *HR* OxyCODONE ER (12 HR) 20 MG TABLET PO SCH (17:28)
[2019-05-09] MEDS: Ringers Solution, Lactated 1,000 ML IVC SCH (01:06)
[2019-05-09] MEDS: Piperacillin/Tazobactam 3.375 GM in 0.9 % Sodium Chloride Mini Bag 100 ML IVPB SCH ×3 (03:21→19:45)
[2019-05-09 04:52] LABS: Basophils # 0.1 K/mcL (0.0-0.2); Basophils % 1.1 %; Eosinophils # 0.4 K/mcL (0.0-0.6); Eosinophils % 6.2 %; Hematocrit 28.6 % (35.3-44.9); Hemoglobin 9.4 g/dL (11.5-15.4); Immature Granulocytes % 1.1 % (0-4); Lymphocytes # 1.8 K/mcL (0.6-4.6); Mean Corpuscular HGB Conc 32.9 g/dL (31.6-35.5); Mean Corpuscular Hemoglobin 29.1 pg (28.0-33.3); Mean Corpuscular Volume 88.5 fL (83.0-100.0); Mean Platelet Volume 9.5 fL (9.4-12.4); Monocytes # 0.7 K/mcL (0.0-1.3); Monocytes % 10.1 %; Platelet Count 250 K/mcL (140-400); Red Blood Count 3.23 M/mcL (3.82-4.97); Red Cell Distribution Width 18.6 % (11.5-14.5); Segmented Neutrophils % 53.5 %; White Blood Count 6.4 K/mcL (4.3-11.1)
[2019-05-09 05:00] LABS: Neutrophils # 3.4 K/mcL (1.6-8.9)
[2019-05-09 05:09] LABS: Potassium 3.7 mEq/L (3.5-5.1)
[2019-05-09] MEDS: *HR* OxyCODONE ER (12 HR) 20 MG TABLET PO SCH ×2 (05:22→17:05)
[2019-05-09 05:27] LABS: Anisocytosis 1+ (Not Present); Platelet Estimate Normal (Normal); Reactive Lymphocytes Present (Not Present)
[2019-05-09] MEDS: *HR* Pioglitazone 30 MG TABLET PO SCH (08:15)
[2019-05-09] MEDS: Insulin LISPRO 300 UNITS/3 ML VIAL SQ SCH ×4 (08:15→19:50)
[2019-05-09] MEDS ORDERED: Aminoglycoside Consult 1 EACH MC ONE (12:55)
[2019-05-10] MEDS: Ringers Solution, Lactated 1,000 ML IVC SCH ×2 (02:46→18:15)
[2019-05-10] MEDS: Piperacillin/Tazobactam 3.375 GM in 0.9 % Sodium Chloride Mini Bag 100 ML IVPB SCH ×3 (04:41→21:31)
[2019-05-10] MEDS: *HR* OxyCODONE ER (12 HR) 20 MG TABLET PO SCH ×2 (04:53→18:16)
[2019-05-10 06:53] LABS: Basophils # 0.1 K/mcL (0.0-0.2); Basophils % 1.3 %; Eosinophils # 0.5 K/mcL (0.0-0.6); Hematocrit 29.1 % (35.3-44.9); Hemoglobin 9.4 g/dL (11.5-15.4); Immature Granulocytes % 0.8 % (0-4); Lymphocytes # 1.3 K/mcL (0.6-4.6); Lymphocytes % 20.6 %; Mean Corpuscular HGB Conc 32.3 g/dL (31.6-35.5); Mean Corpuscular Hemoglobin 29.6 pg (28.0-33.3); Mean Corpuscular Volume 91.5 fL (83.0-100.0); Mean Platelet Volume 9.2 fL (9.4-12.4); Monocytes # 0.5 K/mcL (0.0-1.3); Monocytes % 7.8 %; Neutrophils # 3.9 K/mcL (1.6-8.9); Platelet Count 230 K/mcL (140-400); Red Blood Count 3.18 M/mcL (3.82-4.97); Segmented Neutrophils % 61.5 %; White Blood Count 6.3 K/mcL (4.3-11.1)
[2019-05-10 07:20] LABS: Calcium 7.7 mg/dL (8.6-10.3); Potassium 3.7 mEq/L (3.5-5.1)
[2019-05-10] MEDS: *HR* Pioglitazone 30 MG TABLET PO SCH (07:24)
[2019-05-10] MEDS: Insulin LISPRO 300 UNITS/3 ML VIAL SQ SCH ×4 (07:25→21:35)
[2019-05-11] MEDS: Piperacillin/Tazobactam 3.375 GM in 0.9 % Sodium Chloride Mini Bag 100 ML IVPB SCH ×3 (04:27→21:37)
[2019-05-11 04:29] LABS: Basophils # 0.1 K/mcL (0.0-0.2); Basophils % 0.9 %; Eosinophils # 0.4 K/mcL (0.0-0.6); Eosinophils % 6.3 %; Hematocrit 28.8 % (35.3-44.9); Hemoglobin 9.1 g/dL (11.5-15.4); Immature Granulocytes % 0.6 % (0-4); Lymphocytes # 1.4 K/mcL (0.6-4.6); Lymphocytes % 21.7 %; Mean Corpuscular HGB Conc 31.6 g/dL (31.6-35.5); Mean Corpuscular Hemoglobin 29.5 pg (28.0-33.3); Mean Corpuscular Volume 93.5 fL (83.0-100.0); Mean Platelet Volume 9.4 fL (9.4-12.4); Monocytes # 0.4 K/mcL (0.0-1.3); Monocytes % 6.1 %; Neutrophils # 4.2 K/mcL (1.6-8.9); Platelet Count 238 K/mcL (140-400); Red Blood Count 3.08 M/mcL (3.82-4.97); Red Cell Distribution Width 18.9 % (11.5-14.5); Segmented Neutrophils % 64.4 %; White Blood Count 6.6 K/mcL (4.3-11.1)
[2019-05-11 04:49] LABS: Calcium 7.9 mg/dL (8.6-10.3); Potassium 3.5 mEq/L (3.5-5.1)
[2019-05-11] MEDS: *HR* OxyCODONE ER (12 HR) 20 MG TABLET PO SCH ×2 (06:12→17:29)
[2019-05-11] MEDS: Ringers Solution, Lactated 1,000 ML IVC SCH (09:26)
[2019-05-11] MEDS: Insulin LISPRO 300 UNITS/3 ML VIAL SQ SCH ×4 (09:30→21:01)
[2019-05-11] MEDS: *HR* Pioglitazone 30 MG TABLET PO SCH (09:31)
[2019-05-11] MEDS ORDERED: Furosemide 40 MG/4 ML VIAL IVP ONE (11:22)
[2019-05-12 03:11] LABS: Basophils # 0.1 K/mcL (0.0-0.2); Basophils % 0.9 %; Eosinophils # 0.5 K/mcL (0.0-0.6); Eosinophils % 7.9 %; Hematocrit 26.3 % (35.3-44.9); Hemoglobin 8.8 g/dL (11.5-15.4); Immature Granulocytes % 0.7 % (0-4); Lymphocytes # 1.8 K/mcL (0.6-4.6); Lymphocytes % 26.5 %; Mean Corpuscular HGB Conc 33.5 g/dL (31.6-35.5); Mean Corpuscular Hemoglobin 29.7 pg (28.0-33.3); Mean Corpuscular Volume 88.9 fL (83.0-100.0); Monocytes # 0.7 K/mcL (0.0-1.3); Neutrophils # 3.7 K/mcL (1.6-8.9); Platelet Count 243 K/mcL (140-400); Red Blood Count 2.96 M/mcL (3.82-4.97); Red Cell Distribution Width 18.8 % (11.5-14.5); White Blood Count 6.8 K/mcL (4.3-11.1)
[2019-05-12 03:22] LABS: Calcium 7.7 mg/dL (8.6-10.3); Potassium 3.2 mEq/L (3.5-5.1)
[2019-05-12] MEDS: *HR* OxyCODONE ER (12 HR) 20 MG TABLET PO SCH ×2 (05:16→18:29)
[2019-05-12] MEDS ORDERED: Haloperidol Oral Conc 10 MG/5 ML UDC PO PRN (09:43)
[2019-05-12] MEDS ORDERED: Haloperidol Oral Conc 10 MG/5 ML UDC PO ONE (09:43)
[2019-05-12] MEDS: Insulin LISPRO 300 UNITS/3 ML VIAL SQ SCH ×4 (10:45→20:07)
[2019-05-12] MEDS: Levothyroxine Sodium 100 MCG VIAL IVP SCH ×2 (10:48→10:55)
[2019-05-12] MEDS: *HR* Pioglitazone 30 MG TABLET PO SCH (10:48)
[2019-05-13 04:02] LABS: Bilirubin,Urine Moderate (Negative); Blood,Urine Large (Negative); Clarity,Urine Cloudy (Clear); Color,Urine Yellow (Yellow); Glucose,Urine (UA) Normal (Normal); Ketones,Urine Trace mg/dL (Negative); Leukocyte Esterase,Urine Large (Negative); Nitrite,Urine Negative (Negative); PH,Urine 5.5 pH Units (5.0-8.0); Protein,Urine 30 mg/dL (Neg-Trace); Specific Gravity,Urine 1.021 (1.010-1.025); Urobilinogen,Urine Normal (Normal)
[2019-05-13 04:04] LABS: Bacteria,Urine None Seen per hpf (None-Few); Hyaline Casts,Urine Few per lpf (None-Few); Squamous Epithelial Cell,Urine Many per lpf (None-Few)
[2019-05-13 04:26] LABS: Calcium Oxalate Crystals,Urine Present; RBC,Urine 0-3 per hpf (0-3); WBC,Urine 15-30 per hpf (0-3); Yeast,Urine Many per hpf (None Seen)
[2019-05-13] MEDS: *HR* OxyCODONE ER (12 HR) 20 MG TABLET PO SCH (07:14)
[2019-05-13] MEDS: Insulin LISPRO 300 UNITS/3 ML VIAL SQ SCH ×2 (08:57→12:39)
[2019-05-13] MEDS: *HR* Pioglitazone 30 MG TABLET PO SCH (08:57)
[2019-05-13] MEDS: Levothyroxine Sodium 100 MCG VIAL IVP SCH (08:58)
[2019-05-13 11:13] VITALS: BP 134/79
== END 2019-05-13 14:00 | disposition hospice, home (50) | DRG 710 ==
LOC: 2NNU 15:00 → SUATTDRO 15:00 → 3NENU 05-03 17:56 → 2ANU 05-10 15:14
PROVIDERS: ADMIT Internal Medicine; ATTEND Internal Medicine